=== PATIENT | male | born 1950 | race Caucasian/White ===

== ENCOUNTER → 2018-07-01 10:06 | Outpatient (CLI) | payer MEDICARE, SELFPAY ==
[2018-07-01 10:57] LABS: Add Manual Diff / Slide Review NO; Basophils Percent Auto 0.9 % (0-2); Eosinophils Percent Auto 2.7 % (2-4); Hematocrit 48.9 % (41-53); Hemoglobin 16.6 g/dL (13.5-17.5); Lymphocytes Percent Auto 34.6 % (25-40); Mean Corpuscular Volume 94.3 fL (80-100); Monocytes Percent Auto 11.7 % (3-14); Neutrophils Absolute Auto 2700 /uL (3000-5900); Neutrophils Percent Auto 50.1 % (50-75); Platelet Count 232 X10^3/uL (150-400); Red Blood Cell Count 5.19 X10^6/uL (4.5-5.9); White Blood Cell Count 5.3 X10^3/uL (4.5-11.0)
[2018-07-01 11:15] LABS: Alanine Aminotransferase 38 IU/L (21-72); Albumin 4.5 g/dL (3.5-5.0); Albumin Globulin Ratio 1.5 (1.0-2.8); Alkaline Phosphatase 62 U/L (38-126); Aspartate Aminotransferase 26 IU/L (17-59); Bilirubin Total 0.7 mg/dL (0.2-1.3); Blood Urea Nitrogen 20 mg/dL (9-20); Calcium 9.1 mg/dL (8.4-10.2); Carbon Dioxide 25 mmol/L (22-32); Chloride 103 mmol/L (98-107); Cholesterol 218 mg/dL (140-199); Estimated Glomerular Filt Rate > 60.0 mL/min (>60); Globulin 3.1 g/dL (1.7-4.1); Glucose 116 mg/dL (80-110); HDL Cholesterol 35 mg/dL (40-60); HEMOLYSIS < 15 (0-50); LDL Cholesterol Calculated 146 mg/dL (<100); Potassium 4.3 mmol/L (3.4-5.1); Sodium 140 mmol/L (137-145); Total Protein 7.6 g/dL (6.3-8.2); Triglycerides 184 mg/dL (35-150)
[2018-07-01 11:44] LABS: Prostate Specific Antigen Scrn 0.356 ng/mL (0.1-4.0)
[2018-07-01 11:45] LABS: Thyroid Stimulating Hormone 4.37 uIU/mL (0.47-4.68)
[2018-07-04 13:33] LABS: Testosterone Free 54.7 pg/mL (35.0-155.0); Testosterone Total 279 ng/dL (250-1100)
== END ==
PROVIDERS: PCP Family Medicine; Visit Provider Family Medicine
DX: E78.2 Mixed hyperlipidemia (principal); I10 Essential (primary) hypertension; I25.10 Atherosclerotic heart disease of native coronary artery without angina pectoris; Z12.5 Encounter for screening for malignant neoplasm of prostate; R53.83 Other fatigue
CPT/HCPCS: 36415; 80053; 80061; 84402; 84403; 84443; 85025; G0103

== ENCOUNTER → 2018-08-21 18:33 | Outpatient (CLI) | payer MEDICARE, OTHER, SELFPAY ==
--- NOTE | 2018-08-21 18:37 | DI.RAD.S_ITS ---
PROCEDURE: XR CHEST 2V INDICATIONS: cough and fatigue TECHNIQUE: 2 views of the chest were acquired. COMPARISON: [facility], , CHEST 1 VIEW, 09/07/2012, 20:19. FINDINGS: Surgical changes and devices: Median sternotomy wires and surgical clips are seen. Lungs and pleura: No pleural effusions or pneumothorax. Pulmonary vascular congestion is seen. No definite focal infiltrate. Mediastinum: Mediastinal contours are normal. Heart size is normal. Bones and chest wall: No suspicious bony abnormalities. Soft tissues appear unremarkable. IMPRESSION: Mild congestion. No focal infiltrate, pleural effusion or pneumothorax. Dictated by: Tiago Larson M.D. on 08/21/2018 at 19:07 Approved by: Tiago Larson M.D. on 08/21/2018 at 19:07
== END ==
PROVIDERS: Family Provider Family Medicine; PCP Family Medicine; Visit Provider Physician Assistant
DX: R05 Cough (principal); R53.83 Other fatigue; R09.89 Other specified symptoms and signs involving the circulatory and respiratory systems
CPT/HCPCS: 71046

== ENCOUNTER → 2019-03-17 12:57 | Outpatient (CLI) | payer MEDICARE, SELFPAY ==
--- NOTE | 2019-03-17 13:00 | DI.ECHO.S_ITS ---
[facility] +---------+ : : [address] : : : : [id number] : : : : Phone: [phone]+ Echocardiogram Report + + :Name: REJI SOTO Study Date: 03/17/2019 Height: 70 in : :[facility] Exam Location: IS Weight: 210 lb : : Gender: Male BSA: 2.1 m2 : :: 1950 Age: 68 yrs BP: 120/85 mmHg: :Reason For Study: CABG : :Ordering Physician: Dr. Hernandez : :Jeremias Performed By: Zoë Page : + + Interpretation Summary Normal sinus rhythm. Normal LV size and wall thickness. There is mild global hypokinesis. EF is 45- 50%. There is mild LA enlargement and moderate RA enlargement; there is mild RV enlargement with low normal RV function. Aortic valve leaflets are mildly thickened and calcified with mild associated aortic stenosis. Compared to prior study 07/12/2015, progressive biatrial enlargement is new. Focal wall motion abnormalities are no longer seen. Procedure: A two-dimensional transthoracic echocardiogram with color flow and Doppler was performed. The study quality was technically adequate. Comparison is made with the echocardiogram of 07/12/2015. The patient was in normal sinus rhythm during the exam. Left Ventricle: The left ventricle is normal in size. Left ventricular wall thickness is normal. The ejection fraction is estimated to be 45-50%. Diastolic parameters suggest a relaxation abnormality of the left ventricle, consistent with probable normal filling pressures. E/A reversal with E/e' ratio of about 10. Right Ventricle: The right ventricle is mildly dilated. Right ventricular systolic function is at the lower limits of normal. Atria: The left atrium is mildly dilated. The right atrium is moderately dilated. There is no Doppler evidence for an interatrial shunt. Mitral Valve: The mitral valve leaflets are mildly calcified. There is trace mitral regurgitation. Aortic Valve: The aortic valve is trileaflet. The aortic valve is slightly calcified. There is discrete nodular thickening of the non- coronary cusp. There is trace aortic regurgitation. Tricuspid Valve: The tricuspid valve is normal in structure and function. There is trace tricuspid regurgitation. The right ventricular systolic pressure is estimated to be at least 26 mmHg based on an estimated right atrial pressure of 8 mm Hg. Pulmonic Valve: The pulmonic valve is not well visualized. There is trace pulmonic regurgitation. Great Vessels: The aortic root is normal size. The ascending aorta is mildly enlarged. The pulmonary artery is not well visualized, but is probably normal size. The IVC is dilated (diameter is greater than 2.1 cm) yet it collapses greater than 50% with a sniff. This suggests a right atrial pressure of 8 mm Hg. Pericardium/ Pleura There is no pericardial effusion. There is no pleural effusion. MMode/2D Measurements & Calculations LVIDd: 5.0 cm Ao root diam: 3.0 cm LVIDs: 3.9 cm asc Aorta Diam: 3.6 cm FS: 22.4 % EPSS: 0.68 cm IVSd: 0.82 cm LVPWd: 0.95 cm LV dockery. diameter/BSA (cm/m^2): 2.4 LV sys. diameter/BSA (cm/m^2): 1.8 LA A2 area: 22.9 cm2 RA long axis: 5.6 cm LA A4 area: 23.7 cm2 RA area: 26.6 cm2 LA length (vol): 6.2 cm RA vol: 108.7 ml LA vol: 73.7 ml RA : 51.0 ml/m2 LA vol index: 34.6 ml/m2 IVC diam: 2.3 cm RVD1 (basal): 5.2 cm TAPSE: 1.7 cm Doppler Measurements & Calculations Ao V2 max: 193.2 cm/sec LVOT Max Sacha: 69.3 cm/sec Ao V2 mean: 139.8 cm/sec LV V1 max P.9 mmHg Ao max P.9 mmHg LV V1 VTI: 15.0 cm Ao mean P.7 mmHg sev ratio: 0.37 Ao V2 VTI: 41.1 cm MV E max sacha: 66.3 cm/sec TR max sacha: 209.7 cm/sec MV A max sacha: 80.4 cm/sec TR max P.6 mmHg MV E/A: 0.82 PA V2 max: 69.7 cm/sec Med Peak E' Sacha: 8.2 cm/sec PA V2 mean: 48.7 cm/sec E/E' med: 8.1 PA mean P.1 mmHg Lat Peak E' Sacha: 6.3 cm/sec PA Accel Time: 0.04 sec E/E' lat: 10.5 E/e' average: 9.3 MV dec time: 0.20 sec MV P1/2t: 57.7 msec MV P1/2t max sacha: 65.8 cm/sec MVA(2t): 3.8 cm2 Electronically signed by: Stephanie Hernandez M.D. on Reading Physician:03/18/2019 01:26 AM
--- NOTE | 2019-03-17 13:00 | DI.US.S_ITS ---
PROCEDURE: US CAROTID DOPPLER BI INDICATIONS: HISTORY LEFT ENDARTERECTOMY TECHNIQUE: Color and pulse Doppler interrogation was performed of both carotid systems, with image documentation and velocity measurements. COMPARISON: None. FINDINGS: Stenosis calculations are based on SRU (Society of Radiologists in Ultrasound) criteria. The flow velocities and the arterial waveforms are normal within both carotid arterial systems. Atherosclerotic plaque is seen on both sides. The estimated degree of internal carotid artery stenosis is less than 50%. Antegrade flow is confirmed within both vertebral arteries. The left external carotid artery is not seen. The right external carotid artery is unremarkable. IMPRESSION: No hemodynamically significant stenosis is seen of the internal carotid arteries. The left external carotid artery is not seen on these images. Please correlate with surgical history. Please consider a dedicated CT angiogram, if evaluation of the left external carotid artery would be clinically relevant. Atherosclerotic plaque is noted bilaterally. Dictated by: Hood Huffman M.D. on 03/17/2019 at 14:50 Approved by: Hood Huffman M.D. on 03/17/2019 at 14:53
== END ==
PROVIDERS: Family Provider Family Medicine; PCP Family Medicine; Visit Provider Family Medicine
DX: I35.0 Nonrheumatic aortic (valve) stenosis (principal); I77.89 Other specified disorders of arteries and arterioles; I65.23 Occlusion and stenosis of bilateral carotid arteries; Z98.890 Other specified postprocedural states; Z95.1 Presence of aortocoronary bypass graft
CPT/HCPCS: 93306; 93880

== ENCOUNTER → 2019-10-11 10:43 | Outpatient (CLI) | payer MEDICARE, SELFPAY ==
[2019-10-11 11:09] LABS: Add Manual Diff / Slide Review NO; Basophils Absolute Auto 0 /uL (0-100); Basophils Percent Auto 0.8 % (0-2); Eosinophils Absolute Auto 100 /uL (0-450); Eosinophils Percent Auto 2.4 % (2-4); Hematocrit 47.5 % (41-53); Hemoglobin 16.3 g/dL (13.5-17.5); Lymphocytes Absolute Auto 1800 /uL (1100-4500); Lymphocytes Percent Auto 31.8 % (25-40); Mean Corpuscular HGB Conc 34.3 % (30-36); Mean Corpuscular Hemoglobin 31.9 PG (26-34); Mean Corpuscular Volume 93.2 fL (80-100); Monocytes Absolute Auto 700 /uL (0-900); Monocytes Percent Auto 11.4 % (3-14); Neutrophils Absolute Auto 3100 /uL (1500-7000); Neutrophils Percent Auto 53.6 % (50-75); Platelet Count 214 X10^3/uL (150-400); Red Cell Distribution Width 13.1 % (11.6-14.8); White Blood Cell Count 5.7 X10^3/uL (4.5-11.0)
[2019-10-11 11:37] LABS: HEMOLYSIS < 15 (0-50)
[2019-10-11 11:39] LABS: Erythrocyte Sedimentation Rate 2 MM/HR (0-15)
[2019-10-11 11:44] LABS: Alanine Aminotransferase 17 IU/L (<50); Albumin 4.3 g/dL (3.5-5.0); Albumin Globulin Ratio 1.3 (1.0-2.8); Alkaline Phosphatase 57 U/L (38-126); Aspartate Aminotransferase 18 IU/L (17-59); Bilirubin Total 0.6 mg/dL (0.2-1.3); Blood Urea Nitrogen 22 mg/dL (9-20); Calcium 9.8 mg/dL (8.4-10.2); Carbon Dioxide 25 mmol/L (22-32); Chloride 103 mmol/L (98-107); Cholesterol 148 mg/dL (140-199); Estimated Glomerular Filt Rate > 60.0 mL/min (>60); Globulin 3.3 g/dL (1.7-4.1); Glucose 125 mg/dL (80-110); HDL Cholesterol 30 mg/dL (40-60); LDL Cholesterol Calculated 97 mg/dL (<100); Potassium 4.8 mmol/L (3.4-5.1); Sodium 139 mmol/L (137-145); Total Protein 7.6 g/dL (6.3-8.2); Triglycerides 107 mg/dL (35-150)
[2019-10-11 11:49] LABS: C-Reactive Protein Quant < 0.5 mg/dL (<1.0)
[2019-10-11 12:10] LABS: Prostate Specific Antigen Scrn 0.371 ng/mL (0.1-4.0)
[2019-10-11 13:34] LABS: Testosterone 351 ng/dL (71.8-623)
== END ==
PROVIDERS: Family Provider Family Medicine; Referring Provider Family Medicine; Visit Provider Family Medicine
DX: R25.1 Tremor, unspecified (principal); R53.83 Other fatigue; Z12.5 Encounter for screening for malignant neoplasm of prostate; E78.2 Mixed hyperlipidemia
CPT/HCPCS: 36415; 80053; 80061; 83735; 84153; 84403; 85025; 85651; 86140; G0103

== ENCOUNTER → 2019-10-15 09:44 | Outpatient (CLI) | payer MEDICARE, SELFPAY ==
--- NOTE | 2019-10-15 09:47 | DI.MRI.S_ITS ---
PROCEDURE: MR HEAD/BRAIN WO CON INDICATIONS: Memory impairment TECHNIQUE: Noncontrast axial T1 spin echo, axial T2 fast spin echo, sagittal and axial FLAIR, coronal T2 fast spin echo, axial gradient echo, axial diffusion and ADC through the brain. COMPARISON: None. FINDINGS: Image quality: Excellent. CSF Spaces: Basal cisterns are patent. No extra-axial fluid collections. Ventricles are normal in size and shape. Brain: No intracranial masses or hemorrhage. Jimenez/white matter interface is normal. Brainstem appears normal. Diffusion-weighted images demonstrate no acute ischemic insult. No chronic ischemic insults. Normal intravascular flow voids are present. Skull and face: Calvarium has normal marrow signal. Orbits appear normal. Sinuses: Sinuses and mastoids are clear. IMPRESSION: 1. Negative brain MRI. 2. No acute process. No recent infarct. Dictated by: Bettye Ugarte M.D. on 10/15/2019 at 10:05 Approved by: Bettye Ugarte M.D. on 10/15/2019 at 10:07
--- NOTE | 2019-10-15 09:47 | DI.RAD.S_ITS ---
PROCEDURE: XR KNEE LT 3V INDICATIONS: Knee pain TECHNIQUE: 3 views of the knee were acquired. COMPARISON: [facility], , KNEE 3V LEFT, 10/24/2016, 14:32. FINDINGS: Bones: No fractures or dislocations. No suspicious bony lesions. Mild medial joint space narrowing. Scattered degenerative subchondral sclerosis and spurring. Nonspecific marginal lucencies seen at the lateral aspect of the lateral compartment which are slightly more conspicuous. Soft tissues: No joint effusion. No suspicious soft tissue calcifications. Scattered vascular calcifications IMPRESSION: Mild left knee joint degeneration, without definite progression since 10/24/16 Dictated by: Gabino Valdovinos M.D. on 10/15/2019 at 13:40 Approved by: Gabino Valdovinos M.D. on 10/15/2019 at 13:44
--- NOTE | 2019-10-15 09:47 | DI.RAD.S_ITS ---
PROCEDURE: XR KNEE RT 3V INDICATIONS: Knee pain TECHNIQUE: 3 views of the knee were acquired. COMPARISON: [facility], , KNEE 3V LEFT, 10/24/2016, 14:32. FINDINGS: Bones: No fractures or dislocations. No suspicious bony lesions. Scattered degenerative subchondral sclerosis and spurring. Mild patellofemoral joint space narrowing Soft tissues: No joint effusion. No suspicious soft tissue calcifications. Scattered surgical clips and vascular calcifications. Mild anterior soft tissue swelling IMPRESSION: Mild right knee joint degeneration. Mild anterior soft tissue swelling. If the patient's pain or other symptoms persist, consider further evaluation with MRI Dictated by: Gabino Valdovinos M.D. on 10/15/2019 at 13:44 Approved by: Gabino Valdovinos M.D. on 10/15/2019 at 13:46
== END ==
PROVIDERS: Family Provider Family Medicine; PCP Family Medicine; Referring Provider Family Medicine; Visit Provider Family Medicine
DX: R41.3 Other amnesia (principal); M25.562 Pain in left knee; M25.561 Pain in right knee; M17.0 Bilateral primary osteoarthritis of knee
CPT/HCPCS: 70551; 73562

== ENCOUNTER → 2020-06-20 11:24 | Outpatient (CLI) | payer MEDICARE, SELFPAY ==
[2020-06-20 12:45] LABS: Add Manual Diff / Slide Review NO; Basophils Absolute Auto 0 /uL (0-100); Basophils Percent Auto 0.7 % (0-2); Eosinophils Absolute Auto 200 /uL (0-450); Eosinophils Percent Auto 3.3 % (2-4); Hematocrit 47.7 % (41-53); Lymphocytes Absolute Auto 1900 /uL (1100-4500); Lymphocytes Percent Auto 29.9 % (25-40); Mean Corpuscular HGB Conc 33.6 % (30-36); Mean Corpuscular Hemoglobin 31.9 PG (26-34); Mean Corpuscular Volume 94.8 fL (80-100); Monocytes Absolute Auto 700 /uL (0-900); Monocytes Percent Auto 11.1 % (3-14); Neutrophils Absolute Auto 3500 /uL (1500-7000); Platelet Count 200 X10^3/uL (150-400); Red Blood Cell Count 5.03 X10^6/uL (4.5-5.9); Red Cell Distribution Width 13.2 % (11.6-14.8); White Blood Cell Count 6.4 X10^3/uL (4.5-11.0)
[2020-06-20 13:06] LABS: BUN Creatinine Ratio 21.8 (6-22); Blood Urea Nitrogen 24 mg/dL (9-20); Calcium 9.5 mg/dL (8.4-10.2); Carbon Dioxide 27 mmol/L (22-32); Chloride 103 mmol/L (98-107); Cholesterol 162 mg/dL (140-199); Estimated Glomerular Filt Rate > 60.0 mL/min (>60); Glucose 115 mg/dL (80-110); HDL Cholesterol 27 mg/dL (40-60); HEMOLYSIS < 15 (0-50); LDL Cholesterol Calculated 91 mg/dL (<100); Potassium 4.7 mmol/L (3.4-5.1); Sodium 137 mmol/L (137-145); Triglycerides 218 mg/dL (35-150)
== END ==
PROVIDERS: Family Provider Family Medicine; PCP Family Medicine; Referring Provider Family Medicine; Visit Provider Family Medicine
DX: E78.2 Mixed hyperlipidemia (principal); I10 Essential (primary) hypertension; I25.10 Atherosclerotic heart disease of native coronary artery without angina pectoris; R53.83 Other fatigue; Z95.1 Presence of aortocoronary bypass graft; Z98.890 Other specified postprocedural states
CPT/HCPCS: 36415; 80048; 80061; 85025

== ENCOUNTER 2021-07-24 11:00 | Outpatient (RCR) | payer MEDICARE, SELFPAY ==
[2021-06-21 14:26] VITALS: BP 140/86; O2SAT 94; O2SAT 95
--- NOTE | 2021-06-21 16:31 | PT.OIE ---
Current Diagnoses Parkinson's disease (06/21/21) Other abnormalities of gait and mobility (06/21/21) Past Medical History (Last Updated 07/16/18 @ 12:06 by Rita Blackman) CAD (coronary artery disease) (2008) History of bilateral carpal tunnel release History of cardiac catheterization (01/26/09) History of colonoscopy (02/19/11) History of left-sided carotid endarterectomy (08/18/15) FL (myocardial infarction) (2008) Retinal artery occlusion, 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) S/P CABG (coronary artery bypass graft) (01/2009) Past Surgical History (Last Updated 07/16/18 @ 12:06 by Rita Blackman) History of bilateral carpal tunnel release History of cardiac catheterization (01/26/09) History of colonoscopy (02/19/11) History of left-sided carotid endarterectomy (08/18/15) S/P CABG (coronary artery bypass graft) (01/2009) Visit Care Team Role Provider Type Domenic Patterson MD Primary Care Provider Physician Specialty: Family Practice Address: [address] [place] [address], [facility] Email: [email or web address] Velvet Smiley MD Attending Provider Non-Staff Referring Provider Specialty: Neurology Address: [address] [place] [address], [facility] Email: Physical Therapy Initial Evaluation PT-OP-A Visit Information Start: 06/21/21 07:47 Freq: Status: Active Protocol: Document 06/21/21 11:00 AMB (Rec: 06/21/21 14:26 AMB [email or web address]) Out-Patient Physical Therapy Visit Information Visit Information Visit Type Initial Evaluation Visit Start Time 11:00 Visit Stop Time 12:00 Total Visit Minutes 60 Visit Number 1 PT-OP-B Current Condition Start: 06/21/21 07:47 Freq: Status: Active Protocol: Document 06/21/21 11:00 AMB (Rec: 06/21/21 14:26 AMB [email or web address]) Current Condition History of Current Condition Onset Date 3 years ago Current Complaints L tremor History of Current Condition Allyson noticed a feeling of a tremor starting in his left hand 3 years ago. Recently he has been diagnosed with Parkinson's. 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 He is anxious about his future with PD, but denies any difficulty with his ADLs currently denies falls, he does not really exercise, he goes on walks sometimes. He does have some chronic low back pain but denies that it affects him much. Personal Factors Other Personal Factors That May Effect FL, blood clot to L macula, hx Therapy/Recovery cardiac bypass, hypertension. PT-OP-D Balance Start: 06/21/21 07:47 Freq: Status: Active Protocol: Document 06/21/21 14:26 AMB (Rec: 06/21/21 14:32 AMB [email or web address]) OP-PT Balance Assessment Standing Balance Standing Balance Comments single leg stance 10 seconds + Pickering Fall Scale Copyright Permission PT-OP-E Functional Tests Start: 06/21/21 07:47 Freq: Status: Active Protocol: Document 06/21/21 14:26 AMB (Rec: 06/21/21 14:32 AMB [email or web address]) Functional Tests 6 Minute Walk Test Distance 1384 Device Used none PT-OP-G Mobility & Gait Start: 06/21/21 07:47 Freq: Status: Active Protocol: Document 06/21/21 14:26 AMB (Rec: 06/21/21 14:32 AMB [email or web address]) OP Gait Assessment Comments Gait Comments Reduced arm swing on the left especially with extension. PT-OP-H Neuro Start: 06/21/21 07:47 Freq: Status: Active Protocol: Document 06/21/21 14:26 AMB (Rec: 06/21/21 14:32 AMB [email or web address]) Vital Signs Blood Pressure Sitting Blood Pressure (90/60-120/80 mmHg) 140/86 H Blood Pressure Source Manual Cuff,Right Upper Extremity Oxygen Pulse Oximetry at Rest (%) (95-100 %) 94 L Pulse Oximetry with Activity (%) (95-100 95 %) Oxygen Delivery Method Room Air PT-OP-M Strength Start: 06/21/21 07:47 Freq: Status: Active Protocol: Document 06/21/21 14:26 AMB (Rec: 06/21/21 14:32 AMB [email or web address]) Hand Technical Sales Manager/Pinch Strength Hand Dominance Hand Dominance Right Hip Strength Hip Manual Muscle Testing Left Comments Grossly 5/5 in hip flex, knee flex/ext and ankle df. Good pinch and oracle engineer strength bilaterally. PT-OP-T Assessment and Plan Start: 06/21/21 16:12 Freq: Status: Active Protocol: Document 06/21/21 11:00 AMB (Rec: 06/21/21 16:31 AMB [email or web address]) Physical Therapy Assessment Rehab Potential Rehabilitation Potential Good Evaluation Complexity Number of Personal Factors/Comorbidities 1-2 Number of Body Systems Impaired 1-2 Clinical Presentation at Evaluation Stable Impairments Impairments Functional Activities,Gait Goals Two Impairment Exercise program Short Term Goal (STG) Allyson will be independent with the standard LSVT BIG exercise program. STG Duration 2 weeks Truck Trailer Mechanic Goal (LTG) Allyson will be independent and consistent with a community based exercise program. LTG Duration 4 weeks One Impairment Gait Short Term Goal (STG) Allyson will improve his 6MWT to over 1,500ft to show appropriate gait speed for his age/gender. STG Duration 2 weeks Longterm Goal (LTG) Allyson will ambulate with good bilateral arm swing when walking quickly. LTG Duration 4 weeks Assessment Summary Assessment Allyson attends physical therapy with recent Parkinson's diagnosis with L resting tremor and reduced heel strike and arm swing on the left. He does have a significant cardiac history. He has difficulty noticing any functional activities that have been impaired by Parkinson's but he does feel weaker and stiffer than he was when he was younger. He lives alone and may need help to identify how Parkinson's is affecting his mobility. Physical Therapy Plan Frequency and Duration Frequency of Treatment 4x/Week Plan of Care Start Date 06/21/21 Plan of Care End Date 07/26/21 Therapeutic Interventions Therapeutic Interventions Balance Training,Coordination Training,Gait Training,Home Exercise Program,Manual Therapy,Neuromuscular Re- education,Therapeutic Activities,Therapeutic Exercises Next Visit Focus/Plan Next Note Type Treatment Note Next Visit Plan begin Standard LSVT Big exercises
--- NOTE | 2021-06-21 16:33 | PT.OPPOC ---
Physical, Occupational & Speech Therapy At [facility] Current Diagnoses Parkinson's disease (06/21/21) Other abnormalities of gait and mobility (06/21/21) Visit Care Team Role Provider Type Domenic Patterson MD Primary Care Provider Physician Specialty: Family Practice Address: [address] [place] [address], [id number] Email: [email or web address] Velvet Smiley MD Attending Provider Non-Staff Referring Provider Specialty: Neurology Address: [address] [place] [address], [id number] Email: Plan Of Care PT-OP-T Assessment and Plan Start: 06/21/21 16:12 Freq: Status: Active Protocol: Document 06/21/21 11:00 AMB (Rec: 06/21/21 16:31 AMB [email or web address]) Physical Therapy Assessment Rehab Potential Rehabilitation Potential Good Evaluation Complexity Number of Personal Factors/Comorbidities 1-2 Number of Body Systems Impaired 1-2 Clinical Presentation at Evaluation Stable Impairments Impairments Functional Activities,Gait Goals Two Impairment Exercise program Short Term Goal (STG) Allyson will be independent with the standard LSIA BIG exercise program. STG Duration 2 weeks Photographic Press Screwmaker Goal (LTG) Allyson will be independent and consistent with a community based exercise program. LTG Duration 4 weeks One Impairment Gait Short Term Goal (STG) Allyson will improve his 6MWT to over 1,500ft to show appropriate gait speed for his age/gender. STG Duration 2 weeks Photographic Press Screwmaker Goal (LTG) Allyson will ambulate with good bilateral arm swing when walking quickly. LTG Duration 4 weeks Assessment Summary Assessment Allyson attends physical therapy with recent Parkinson's diagnosis with L resting tremor and reduced heel strike and armswing on the left. He does have a significant cardiac history. He has difficulty noticing any functional activities that have been impaired by Parkinson's but he does feel weaker and stiffer than he was when he was younger. He lives alone and may need help to identify how Parkinson's is affecting his mobility. Physical Therapy Plan Frequency and Duration Frequency of Treatment 4x/Week Plan of Care Start Date 06/21/21 Plan of Care End Date 07/26/21 Therapeutic Interventions Therapeutic Interventions Balance Training,Coordination Training,Gait Training,Home Exercise Program,Manual Therapy,Neuromuscular Re- education,Therapeutic Activities,Therapeutic Exercises Next Visit Focus/Plan Next Note Type Treatment Note Next Visit Plan begin Standard LSVT Big exercises Plan of Care Dates Plan of Care Start Date 06/21/21 Plan of Care End Date 07/26/21 Electronically Signed by: Daniela Leal, PT 06/21/21 3102 Please Sign and Return: I have reviewed this Plan of Care and certify that the skilled therapy services above are required to meet the patient?s needs. Physician Signature Date Printed Name and Credentials Clinical Instructor Signature Printed Name and Credentials
--- NOTE | 2021-06-25 12:16 | PT.OTN ---
Current Diagnoses Parkinson's disease (06/25/21) Other abnormalities of gait and mobility (06/25/21) Physical Therapy Treatment Note PT-OP-A Visit Information Start: 06/21/21 07:47 Freq: Status: Active Protocol: Document 06/25/21 11:58 MA (Rec: 06/25/21 12:16 MA [email or web address]) Out-Patient Physical Therapy Visit Information Visit Information Visit Type Treatment Note Visit Start Time 11:00 Visit Stop Time 11:55 Total Visit Minutes 55 Visit Number 2 Number of FUR BUYER Visits 1 PT-OP-B Current Condition Start: 06/21/21 07:47 Freq: Status: Active Protocol: Document 06/21/21 11:00 AMB (Rec: 06/21/21 14:26 AMB [email or web address]) Current Condition History of Current Condition Onset Date 3 years ago Current Complaints L tremor History of Current Condition Allyson noticed a feeling of a tremor starting in his left hand 3 years ago. Recently he has been diagnosed with Parkinson's. 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 He is anxious about his future with PD, but denies any difficulty with his ADLs currently denies falls, he does not really exercise, he goes on walks sometimes. He does have some chronic low back pain but denies that it affects him much. Personal Factors Other Personal Factors That May Effect SD, blood clot to L macula, hx Therapy/Recovery cardiac bypass, hypertension. PT-OP-C Subjective Start: 06/21/21 07:47 Freq: Status: Active Protocol: Document 06/25/21 11:58 MA (Rec: 06/25/21 12:16 MA [email or web address]) OP-PT Subjective Patient Comments Patient Comments Pt reports taking medication 3x/daily for PD and has L tremor. He states he was recently diagnosed and has no major functional deficits aside from the tremor, but he is R handed so the tremor doesn't affect much. PT-OP-D Balance Start: 06/21/21 07:47 Freq: Status: Active Protocol: Document 06/21/21 14:26 AMB (Rec: 06/21/21 14:32 AMB [email or web address]) OP-PT Balance Assessment Standing Balance Standing Balance Comments single leg stance 10 seconds + Pickering Fall Scale Copyright Permission PT-OP-E Functional Tests Start: 06/21/21 07:47 Freq: Status: Active Protocol: Document 06/21/21 14:26 AMB (Rec: 06/21/21 14:32 AMB [email or web address]) Functional Tests 6 Minute Walk Test Distance 1384 Device Used none PT-OP-G Mobility & Gait Start: 06/21/21 07:47 Freq: Status: Active Protocol: Document 06/21/21 14:26 AMB (Rec: 06/21/21 14:32 AMB [email or web address]) OP Gait Assessment Comments Gait Comments Reduced arm swing on the left especially with extension. PT-OP-H Neuro Start: 06/21/21 07:47 Freq: Status: Active Protocol: Document 06/21/21 14:26 AMB (Rec: 06/21/21 14:32 AMB [email or web address]) Vital Signs Blood Pressure Sitting Blood Pressure (90/60-120/80 mmHg) 140/86 H Blood Pressure Source Manual Cuff,Right Upper Extremity Oxygen Pulse Oximetry at Rest (%) (95-100 %) 94 L Pulse Oximetry with Activity (%) (95-100 95 %) Oxygen Delivery Method Room Air PT-OP-M Strength Start: 06/21/21 07:47 Freq: Status: Active Protocol: Document 06/21/21 14:26 AMB (Rec: 06/21/21 14:32 AMB [email or web address]) Hand Health Education Aide/Pinch Strength Hand Dominance Hand Dominance Right Hip Strength Hip Manual Muscle Testing Left Comments Grossly 5/5 in hip flex, knee flex/ext and ankle df. Good pinch and powder carrier strength bilaterally. PT-OP-Q Treatments Start: 06/21/21 07:47 Freq: Status: Active Protocol: Document 06/25/21 11:58 MA (Rec: 06/25/21 12:13 MA [email or web address]) Gait Training Gait Activity Walking Description uneven terrain- grass, curbs, stairs Surface uneven Distance/Duration 8' Treatment Focus BIG arm swings Comments seated rest break for 2' fpc Neuro Re-Education Treatment Other Activities Sit<>Stand Details no UEs Reps/Duration 10x Sideways Rock & Reach Reps/Duration 10x Fwd Rock & Reach Reps/Duration 10x Backward Step & Reach Reps/Duration 10x Sideways Step & reach Reps/Duration 10x Fwd Step & Reach Reps/Duration 10x Side to Side Details added flicks Reps/Duration 10x Floor to Ceiling Details added flicks Reps/Duration 10x Comments modified to keeping head looking at horizon when reaching down d/t dizziness Self-Care/Home Management Treatment Education Other Education Discussed BIG program, PD progression, vocalizing during exercises, working on adding walking into pt's daily schedule PT-OP-T Assessment and Plan Start: 06/21/21 16:12 Freq: Status: Active Protocol: Document 06/25/21 11:58 MA (Rec: 06/25/21 12:13 MA [email or web address]) Physical Therapy Assessment Goals Two Impairment Exercise program Short Term Goal (STG) Allyson will be independent with the standard LSVT BIG exercise program. STG Duration 2 weeks Medical Imaging Technologist Goal (LTG) Allyson will be independent and consistent with a community based exercise program. LTG Duration 4 weeks One Impairment Gait Short Term Goal (STG) Allyson will improve his 6MWT to over 1,500ft to show appropriate gait speed for his age/gender. STG Duration 2 weeks Medical Imaging Technologist Goal (LTG) Allyson will ambulate with good bilateral arm swing when walking quickly. LTG Duration 4 weeks Assessment Summary Assessment Allyson states he feels exercises today were more difficult on his L side d/t tremor. He has minor dizziness during first BIG exercise when reaching to the floor. Dizziness subsides when PT asks pt to keep his eyes on horizon vs looking down and back up quickly during movement. He has no other c/o dizziness throughout session but fatigues easily, requiring multiple seated and standing rest breaks. PT educated pt on BIG program, what to expect, progression of PD, and dispensed exercise packet. Pt understands he is to do try the exercises once at home this afternoon and report back tomorrow how it went. Physical Therapy Plan Frequency and Duration Frequency of Treatment 4x/Week Plan of Care Start Date 06/21/21 Plan of Care End Date 07/26/21 Therapeutic Interventions Therapeutic Interventions Balance Training,Coordination Training,Gait Training,Home Exercise Program,Manual Therapy,Neuromuscular Re- education,Therapeutic Activities,Therapeutic Exercises Next Visit Focus/Plan Next Note Type Treatment Note Next Visit Plan Continue Standard LSVT Big exercises, begin balance work and continue gait with increased emphasis on heel strike and arm swings
--- NOTE | 2021-06-26 12:12 | PT.OTN ---
Current Diagnoses Parkinson's disease (06/26/21) Other abnormalities of gait and mobility (06/26/21) Physical Therapy Treatment Note PT-OP-A Visit Information Start: 06/21/21 07:47 Freq: Status: Active Protocol: Document 06/26/21 11:00 AMB (Rec: 06/26/21 12:11 AMB [email or web address]) Out-Patient Physical Therapy Visit Information Visit Information Visit Type Treatment Note Visit Start Time 11:00 Visit Stop Time 11:55 Total Visit Minutes 55 Visit Number 3 PT-OP-B Current Condition Start: 06/21/21 07:47 Freq: Status: Active Protocol: Document 06/21/21 11:00 AMB (Rec: 06/21/21 14:26 AMB [email or web address]) Current Condition History of Current Condition Onset Date 3 years ago Current Complaints L tremor History of Current Condition Allyson noticed a feeling of a tremor starting in his left hand 3 years ago. Recently he has been diagnosed with Parkinson's. 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 He is anxious about his future with PD, but denies any difficulty with his ADLs currently denies falls, he does not really exercise, he goes on walks sometimes. He does have some chronic low back pain but denies that it affects him much. Personal Factors Other Personal Factors That May Effect [place], blood clot to L macula, hx Therapy/Recovery cardiac bypass, hypertension. PT-OP-C Subjective Start: 06/21/21 07:47 Freq: Status: Active Protocol: Document 06/26/21 11:00 AMB (Rec: 06/26/21 12:11 AMB [email or web address]) OP-PT Subjective Patient Comments Patient Comments Pt reports he did some stretching last night but did not do his exercises. PT-OP-D Balance Start: 06/21/21 07:47 Freq: Status: Active Protocol: Document 06/21/21 14:26 AMB (Rec: 06/21/21 14:32 AMB [email or web address]) OP-PT Balance Assessment Standing Balance Standing Balance Comments single leg stance 10 seconds + Pickering Fall Scale Copyright Permission PT-OP-E Functional Tests Start: 06/21/21 07:47 Freq: Status: Active Protocol: Document 06/21/21 14:26 AMB (Rec: 06/21/21 14:32 AMB [email or web address]) Functional Tests 6 Minute Walk Test Distance 1384 Device Used none PT-OP-G Mobility & Gait Start: 06/21/21 07:47 Freq: Status: Active Protocol: Document 06/21/21 14:26 AMB (Rec: 06/21/21 14:32 AMB [email or web address]) OP Gait Assessment Comments Gait Comments Reduced arm swing on the left especially with extension. PT-OP-H Neuro Start: 06/21/21 07:47 Freq: Status: Active Protocol: Document 06/21/21 14:26 AMB (Rec: 06/21/21 14:32 AMB [email or web address]) Vital Signs Blood Pressure Sitting Blood Pressure (90/60-120/80 mmHg) 140/86 H Blood Pressure Source Manual Cuff,Right Upper Extremity Oxygen Pulse Oximetry at Rest (%) (95-100 %) 94 L Pulse Oximetry with Activity (%) (95-100 95 %) Oxygen Delivery Method Room Air PT-OP-M Strength Start: 06/21/21 07:47 Freq: Status: Active Protocol: Document 06/21/21 14:26 AMB (Rec: 06/21/21 14:32 AMB [email or web address]) Hand Solar/Renewable Energy Sales/Pinch Strength Hand Dominance Hand Dominance Right Hip Strength Hip Manual Muscle Testing Left Comments Grossly 5/5 in hip flex, knee flex/ext and ankle df. Good pinch and buggy operator strength bilaterally. PT-OP-Q Treatments Start: 06/21/21 07:47 Freq: Status: Active Protocol: Document 06/26/21 11:00 AMB (Rec: 06/26/21 12:11 AMB [email or web address]) Gait Training Gait Activity Walking Description uneven terrain- grass, curbs, stairs Surface uneven Distance/Duration 6' Treatment Focus BIG arm swings Comments seated rest break for 2' correction Neuro Re-Education Treatment Other Activities Sit<>Stand Details no UEs Reps/Duration 10x Comments cues forward lean Sideways Rock & Reach Reps/Duration 10x Fwd Rock & Reach Reps/Duration 10x Backward Step & Reach Reps/Duration 10x Comments heavy cues Sideways Step & reach Reps/Duration 10x Fwd Step & Reach Reps/Duration 10x Side to Side Details added flicks Reps/Duration 10x Floor to Ceiling Details added flicks Reps/Duration 10x Comments modified to keeping head looking at horizon when reaching down d/t dizziness PT-OP-T Assessment and Plan Start: 06/21/21 16:12 Freq: Status: Active Protocol: Document 06/26/21 11:00 AMB (Rec: 06/26/21 12:11 AMB [email or web address]) Physical Therapy Assessment Goals Two Impairment Exercise program Short Term Goal (STG) Allyson will be independent with the standard LSVT BIG exercise program. STG Duration 2 weeks Long-Term Goal (LTG) Allyson will be independent and consistent with a community based exercise program. LTG Duration 4 weeks One Impairment Gait Short Term Goal (STG) Allyson will improve his 6MWT to over 1,500ft to show appropriate gait speed for his age/gender. STG Duration 2 weeks Long-Term Goal (LTG) Allyson will ambulate with good bilateral arm swing when walking quickly. LTG Duration 4 weeks Assessment Summary Assessment No dizziness today, but pt does report hx orthostatic hypotension. Needed continued cues for backwards stepping. Fatigues and needed seated rest breaks. Physical Therapy Plan Next Visit Focus/Plan Next Note Type Treatment Note Next Visit Plan Continue Standard LSVT Big exercises, begin balance work and continue gait with increased emphasis on heel strike and arm swings
--- NOTE | 2021-06-27 12:01 | PT.OTN ---
Current Diagnoses Parkinson's disease (06/27/21) Other abnormalities of gait and mobility (06/27/21) Physical Therapy Treatment Note PT-OP-A Visit Information Start: 06/21/21 07:47 Freq: Status: Active Protocol: Document 06/27/21 10:50 MA (Rec: 06/27/21 12:01 MA [id number]) Out-Patient Physical Therapy Visit Information Visit Information Visit Type Treatment Note Visit Start Time 11:00 Visit Stop Time 11:55 Total Visit Minutes 55 Visit Number 4 Number of BUTTONHOLE MAKER HAND Visits 1 PT-OP-B Current Condition Start: 06/21/21 07:47 Freq: Status: Active Protocol: Document 06/21/21 11:00 AMB (Rec: 06/21/21 14:26 AMB [email or web address]) Current Condition History of Current Condition Onset Date 3 years ago Current Complaints L tremor History of Current Condition Allyson noticed a feeling of a tremor starting in his left hand 3 years ago. Recently he has been diagnosed with Parkinson's. 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 He is anxious about his future with PD, but denies any difficulty with his ADLs currently denies falls, he does not really exercise, he goes on walks sometimes. He does have some chronic low back pain but denies that it affects him much. Personal Factors Other Personal Factors That May Effect [place], blood clot to L macula, hx Therapy/Recovery cardiac bypass, hypertension. PT-OP-C Subjective Start: 06/21/21 07:47 Freq: Status: Active Protocol: Document 06/27/21 10:50 MA (Rec: 06/27/21 12:01 MA [id number]) OP-PT Subjective Patient Comments Patient Comments Pt reports I had a completely full afternoon yesterday and did not do my exercises and I don't even feel bad about it PT-OP-D Balance Start: 06/21/21 07:47 Freq: Status: Active Protocol: Document 06/21/21 14:26 AMB (Rec: 06/21/21 14:32 AMB [email or web address]) OP-PT Balance Assessment Standing Balance Standing Balance Comments single leg stance 10 seconds + Pickering Fall Scale Copyright Permission PT-OP-E Functional Tests Start: 06/21/21 07:47 Freq: Status: Active Protocol: Document 06/21/21 14:26 AMB (Rec: 06/21/21 14:32 AMB [email or web address]) Functional Tests 6 Minute Walk Test Distance 1384 Device Used none PT-OP-G Mobility & Gait Start: 06/21/21 07:47 Freq: Status: Active Protocol: Document 06/21/21 14:26 AMB (Rec: 06/21/21 14:32 AMB [email or web address]) OP Gait Assessment Comments Gait Comments Reduced arm swing on the left especially with extension. PT-OP-H Neuro Start: 06/21/21 07:47 Freq: Status: Active Protocol: Document 06/21/21 14:26 AMB (Rec: 06/21/21 14:32 AMB [email or web address]) Vital Signs Blood Pressure Sitting Blood Pressure (90/60-120/80 mmHg) 140/86 H Blood Pressure Source Manual Cuff,Right Upper Extremity Oxygen Pulse Oximetry at Rest (%) (95-100 %) 94 L Pulse Oximetry with Activity (%) (95-100 95 %) Oxygen Delivery Method Room Air PT-OP-M Strength Start: 06/21/21 07:47 Freq: Status: Active Protocol: Document 06/21/21 14:26 AMB (Rec: 06/21/21 14:32 AMB [email or web address]) Hand Step Down Nurse/Pinch Strength Hand Dominance Hand Dominance Right Hip Strength Hip Manual Muscle Testing Left Comments Grossly 5/5 in hip flex, knee flex/ext and ankle df. Good pinch and correctional supervisor strength bilaterally. PT-OP-Q Treatments Start: 06/21/21 07:47 Freq: Status: Active Protocol: Document 06/27/21 10:50 MA (Rec: 06/27/21 12:01 MA [id number]) Gym Equipment Shuttle Balance Red Clips Comments WBOS fwd and lateral throwing ball at rebounder- pt denies trying NBOS Gait Training Gait Activity Walking Description uneven terrain- grass, curbs, stairs Surface uneven Distance/Duration 6' Treatment Focus BIG arm swings Comments seated rest break at end today Tandem walking at end of session for 20 ft Neuro Re-Education Treatment Balance Activities SLS Comments 1. trials with EC 2. while throwing ball with PT Tandem Stance Comments 1. Eyes closed trials 2. while throwing ball with PT Other Activities Sit<>Stand Details no UEs Reps/Duration 10x Comments cues forward lean Sideways Rock & Reach Reps/Duration 10x Fwd Rock & Reach Reps/Duration 10x Backward Step & Reach Reps/Duration 10x Comments heavy cues Sideways Step & reach Reps/Duration 10x Fwd Step & Reach Reps/Duration 10x Side to Side Details added flicks Reps/Duration 10x Floor to Ceiling Details added flicks Reps/Duration 10x PT-OP-T Assessment and Plan Start: 06/21/21 16:12 Freq: Status: Active Protocol: Document 06/27/21 10:50 MA (Rec: 06/27/21 12:01 MA [id number]) Physical Therapy Assessment Goals Two Impairment Exercise program Short Term Goal (STG) Allyson will be independent with the standard LSVT BIG exercise program. STG Duration 2 weeks Halfway Goal (LTG) Allyson will be independent and consistent with a community based exercise program. LTG Duration 4 weeks One Impairment Gait Short Term Goal (STG) Allyson will improve his 6MWT to over 1,500ft to show appropriate gait speed for his age/gender. STG Duration 2 weeks Liquefied Natural Gas Operator Goal (LTG) Allyson will ambulate with good bilateral arm swing when walking quickly. LTG Duration 4 weeks Assessment Summary Assessment Pt continues to have difficulty with backwards stepping exercise. He does well with tandem balance work but struggles with SLS. Pt refuses to try NBOS balance challenges on shuttle balance and is challenged during WBOS while throwing ball at rebounder. Physical Therapy Plan Frequency and Duration Frequency of Treatment 4x/Week Plan of Care Start Date 06/21/21 Plan of Care End Date 07/26/21 Therapeutic Interventions Therapeutic Interventions Balance Training,Coordination Training,Gait Training,Home Exercise Program,Manual Therapy,Neuromuscular Re- education,Therapeutic Activities,Therapeutic Exercises Next Visit Focus/Plan Next Note Type Treatment Note Next Visit Plan Continue Standard LSVT Big exercises, begin balance work and continue gait with increased emphasis on heel strike and arm swings
--- NOTE | 2021-06-28 15:46 | PT.OTN ---
Current Diagnoses Parkinson's disease (06/28/21) Other abnormalities of gait and mobility (06/28/21) Physical Therapy Treatment Note PT-OP-A Visit Information Start: 06/21/21 07:47 Freq: Status: Active Protocol: Document 06/28/21 13:00 AMB (Rec: 06/28/21 13:54 AMB [id number]) Out-Patient Physical Therapy Visit Information Visit Information Visit Type Treatment Note Visit Start Time 13:00 Visit Stop Time 14:00 Total Visit Minutes 60 Visit Number 5 PT-OP-B Current Condition Start: 06/21/21 07:47 Freq: Status: Active Protocol: Document 06/21/21 11:00 AMB (Rec: 06/21/21 14:26 AMB [email or web address]) Current Condition History of Current Condition Onset Date 3 years ago Current Complaints L tremor History of Current Condition Allyson noticed a feeling of a tremor starting in his left hand 3 years ago. Recently he has been diagnosed with Parkinson's. 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 He is anxious about his future with PD, but denies any difficulty with his ADLs currently denies falls, he does not really exercise, he goes on walks sometimes. He does have some chronic low back pain but denies that it affects him much. Personal Factors Other Personal Factors That May Effect [place], blood clot to L macula, hx Therapy/Recovery cardiac bypass, hypertension. PT-OP-C Subjective Start: 06/21/21 07:47 Freq: Status: Active Protocol: Document 06/28/21 13:00 AMB (Rec: 06/28/21 15:46 AMB [email or web address]) OP-PT Subjective Patient Comments Patient Comments I have been busy with social stuff so haven't had time to do the exercises PT-OP-D Balance Start: 06/21/21 07:47 Freq: Status: Active Protocol: Document 06/21/21 14:26 AMB (Rec: 06/21/21 14:32 AMB [email or web address]) OP-PT Balance Assessment Standing Balance Standing Balance Comments single leg stance 10 seconds + Pickering Fall Scale Copyright Permission PT-OP-E Functional Tests Start: 06/21/21 07:47 Freq: Status: Active Protocol: Document 06/21/21 14:26 AMB (Rec: 06/21/21 14:32 AMB [email or web address]) Functional Tests 6 Minute Walk Test Distance 1384 Device Used none PT-OP-G Mobility & Gait Start: 06/21/21 07:47 Freq: Status: Active Protocol: Document 06/21/21 14:26 AMB (Rec: 06/21/21 14:32 AMB [email or web address]) OP Gait Assessment Comments Gait Comments Reduced arm swing on the left especially with extension. PT-OP-H Neuro Start: 06/21/21 07:47 Freq: Status: Active Protocol: Document 06/21/21 14:26 AMB (Rec: 06/21/21 14:32 AMB [email or web address]) Vital Signs Blood Pressure Sitting Blood Pressure (90/60-120/80 mmHg) 140/86 H Blood Pressure Source Manual Cuff,Right Upper Extremity Oxygen Pulse Oximetry at Rest (%) (95-100 %) 94 L Pulse Oximetry with Activity (%) (95-100 95 %) Oxygen Delivery Method Room Air PT-OP-M Strength Start: 06/21/21 07:47 Freq: Status: Active Protocol: Document 06/21/21 14:26 AMB (Rec: 06/21/21 14:32 AMB [email or web address]) Hand Supervisor Porcelain Department/Pinch Strength Hand Dominance Hand Dominance Right Hip Strength Hip Manual Muscle Testing Left Comments Grossly 5/5 in hip flex, knee flex/ext and ankle df. Good pinch and dry roller strength bilaterally. PT-OP-Q Treatments Start: 06/21/21 07:47 Freq: Status: Active Protocol: Document 06/28/21 13:00 AMB (Rec: 06/28/21 15:46 AMB [email or web address]) Gym Equipment Shuttle Balance Red Clips Comments WBOS lateral stance throw and catch to PT- states it hurts his feet, challenged by dual task Gait Training Gait Activity Walking Description uneven terrain- grass, curbs, stairs Surface uneven Distance/Duration 6' Treatment Focus BIG arm swings Comments up hill Neuro Re-Education Treatment Other Activities Sit<>Stand Details no UEs Reps/Duration 10x Comments cues forward lean- 16 box Sideways Rock & Reach Reps/Duration 10x Fwd Rock & Reach Reps/Duration 10x Backward Step & Reach Reps/Duration 10x Comments heavy cues Sideways Step & reach Reps/Duration 10x Comments alternating Fwd Step & Reach Reps/Duration 10x Comments alternating Side to Side Details added flicks Reps/Duration 10x Comments alternating sides Floor to Ceiling Details added flicks Reps/Duration 10x PT-OP-T Assessment and Plan Start: 06/21/21 16:12 Freq: Status: Active Protocol: Document 06/28/21 13:00 AMB (Rec: 06/28/21 15:46 AMB [email or web address]) Physical Therapy Assessment Goals Two Impairment Exercise program Short Term Goal (STG) Allyson will be independent with the standard LSVT BIG exercise program. STG Duration 2 weeks Retirement Goal (LTG) Allyson will be independent and consistent with a community based exercise program. LTG Duration 4 weeks One Impairment Gait Short Term Goal (STG) Allyson will improve his 6MWT to over 1,500ft to show appropriate gait speed for his age/gender. STG Duration 2 weeks Retirement Goal (LTG) Allyson will ambulate with good bilateral arm swing when walking quickly. LTG Duration 4 weeks Assessment Summary Assessment Pt was challenged by some of the dual task challenges. Continues to need cues for form with exercises, most likely due to not practicing exercises at home. Physical Therapy Plan Frequency and Duration Frequency of Treatment 4x/Week Plan of Care Start Date 06/21/21 Plan of Care End Date 07/26/21 Therapeutic Interventions Therapeutic Interventions Balance Training,Coordination Training,Gait Training,Home Exercise Program,Manual Therapy,Neuromuscular Re- education,Therapeutic Activities,Therapeutic Exercises Next Visit Focus/Plan Next Note Type Treatment Note Next Visit Plan Continue Standard LSVT Big exercises, begin balance work and continue gait with increased emphasis on heel strike and arm swings
--- NOTE | 2021-07-02 12:09 | PT.OTN ---
Current Diagnoses Parkinson's disease (07/02/21) Other abnormalities of gait and mobility (07/02/21) Physical Therapy Treatment Note PT-OP-A Visit Information Start: 06/21/21 07:47 Freq: Status: Active Protocol: Document 07/02/21 11:08 MA (Rec: 07/02/21 12:09 MA [id number]) Out-Patient Physical Therapy Visit Information Visit Information Visit Type Treatment Note Visit Start Time 11:00 Visit Stop Time 11:55 Total Visit Minutes 55 Visit Number 6 Number of PET ADOPTION COUNSELOR Visits 1 PT-OP-B Current Condition Start: 06/21/21 07:47 Freq: Status: Active Protocol: Document 06/21/21 11:00 AMB (Rec: 06/21/21 14:26 AMB [email or web address]) Current Condition History of Current Condition Onset Date 3 years ago Current Complaints L tremor History of Current Condition Allyson noticed a feeling of a tremor starting in his left hand 3 years ago. Recently he has been diagnosed with Parkinson's. 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 He is anxious about his future with PD, but denies any difficulty with his ADLs currently denies falls, he does not really exercise, he goes on walks sometimes. He does have some chronic low back pain but denies that it affects him much. Personal Factors Other Personal Factors That May Effect [place], blood clot to L macula, hx Therapy/Recovery cardiac bypass, hypertension. PT-OP-C Subjective Start: 06/21/21 07:47 Freq: Status: Active Protocol: Document 07/02/21 11:08 MA (Rec: 07/02/21 12:09 MA [id number]) OP-PT Subjective Patient Comments Patient Comments I haven;t done the exercises but I did do some of my own balance exercises one day PT-OP-D Balance Start: 06/21/21 07:47 Freq: Status: Active Protocol: Document 06/21/21 14:26 AMB (Rec: 06/21/21 14:32 AMB [email or web address]) OP-PT Balance Assessment Standing Balance Standing Balance Comments single leg stance 10 seconds + Pickering Fall Scale Copyright Permission PT-OP-E Functional Tests Start: 06/21/21 07:47 Freq: Status: Active Protocol: Document 06/21/21 14:26 AMB (Rec: 06/21/21 14:32 AMB [email or web address]) Functional Tests 6 Minute Walk Test Distance 1384 Device Used none PT-OP-G Mobility & Gait Start: 06/21/21 07:47 Freq: Status: Active Protocol: Document 06/21/21 14:26 AMB (Rec: 06/21/21 14:32 AMB [email or web address]) OP Gait Assessment Comments Gait Comments Reduced arm swing on the left especially with extension. PT-OP-H Neuro Start: 06/21/21 07:47 Freq: Status: Active Protocol: Document 06/21/21 14:26 AMB (Rec: 06/21/21 14:32 AMB [email or web address]) Vital Signs Blood Pressure Sitting Blood Pressure (90/60-120/80 mmHg) 140/86 H Blood Pressure Source Manual Cuff,Right Upper Extremity Oxygen Pulse Oximetry at Rest (%) (95-100 %) 94 L Pulse Oximetry with Activity (%) (95-100 95 %) Oxygen Delivery Method Room Air PT-OP-M Strength Start: 06/21/21 07:47 Freq: Status: Active Protocol: Document 06/21/21 14:26 AMB (Rec: 06/21/21 14:32 AMB [email or web address]) Hand Freight Agent/Pinch Strength Hand Dominance Hand Dominance Right Hip Strength Hip Manual Muscle Testing Left Comments Grossly 5/5 in hip flex, knee flex/ext and ankle df. Good pinch and dental technologist strength bilaterally. PT-OP-Q Treatments Start: 06/21/21 07:47 Freq: Status: Active Protocol: Document 07/02/21 11:08 MA (Rec: 07/02/21 12:09 MA [id number]) Gym Equipment Shuttle Balance Red Clips Comments WBOS & NBOS fwd only, throw and catch to PT- states it hurts his feet, challenged by dual task Gait Training Gait Activity Walking Description uneven terrain- grass, curbs, stairs Surface uneven Distance/Duration 6' Treatment Focus BIG arm swings Comments up hill Also walked in hallway with head turns, quick stops, and quick turns Neuro Re-Education Treatment Balance Activities SLS Comments 1. trials with EC 2. while throwing ball with PT Tandem Stance Surface blue foam Comments 1. Eyes closed trials 2. while throwing ball with PT Other Activities Sit<>Stand Details no UEs Reps/Duration 10x Comments marinelli cushion Sideways Rock & Reach Reps/Duration 10x Fwd Rock & Reach Reps/Duration 10x Backward Step & Reach Reps/Duration 10x Comments heavy cues Sideways Step & reach Reps/Duration 10x Comments alternating Fwd Step & Reach Reps/Duration 10x Comments alternating Side to Side Details added flicks Reps/Duration 10x Comments alternating sides Floor to Ceiling Details added flicks Reps/Duration 10x PT-OP-T Assessment and Plan Start: 06/21/21 16:12 Freq: Status: Active Protocol: Document 07/02/21 11:08 MA (Rec: 07/02/21 12:09 MA [id number]) Physical Therapy Assessment Goals Two Impairment Exercise program Short Term Goal (STG) Allyson will be independent with the standard LSVT BIG exercise program. STG Duration 2 weeks Utility Operator Yarn Goal (LTG) Allyson will be independent and consistent with a community based exercise program. LTG Duration 4 weeks One Impairment Gait Short Term Goal (STG) Allyson will improve his 6MWT to over 1,500ft to show appropriate gait speed for his age/gender. STG Duration 2 weeks Utility Operator Yarn Goal (LTG) Allyson will ambulate with good bilateral arm swing when walking quickly. LTG Duration 4 weeks Assessment Summary Assessment Pt has not done his BIG exercises at home. Reminded pt of the purpose of BIG exercises and doing them twice every day for carryover. He is showing improvement with his balance but is challenged by dual task challenges while balancing. Physical Therapy Plan Frequency and Duration Frequency of Treatment 4x/Week Plan of Care Start Date 06/21/21 Plan of Care End Date 07/26/21 Therapeutic Interventions Therapeutic Interventions Balance Training,Coordination Training,Gait Training,Home Exercise Program,Manual Therapy,Neuromuscular Re- education,Therapeutic Activities,Therapeutic Exercises Next Visit Focus/Plan Next Note Type Treatment Note Next Visit Plan Continue Standard LSVT Big exercises, begin balance work and continue gait with increased emphasis on heel strike and arm swings
--- NOTE | 2021-07-03 15:39 | PT.OTN ---
Current Diagnoses Parkinson's disease (07/03/21) Other abnormalities of gait and mobility (07/03/21) Physical Therapy Treatment Note PT-OP-A Visit Information Start: 06/21/21 07:47 Freq: Status: Active Protocol: Document 07/03/21 11:00 AMB (Rec: 07/03/21 15:39 AMB [email or web address]) Out-Patient Physical Therapy Visit Information Visit Information Visit Type Treatment Note Visit Start Time 11:00 Visit Stop Time 12:00 Total Visit Minutes 60 Visit Number 7 PT-OP-B Current Condition Start: 06/21/21 07:47 Freq: Status: Active Protocol: Document 06/21/21 11:00 AMB (Rec: 06/21/21 14:26 AMB [email or web address]) Current Condition History of Current Condition Onset Date 3 years ago Current Complaints L tremor History of Current Condition Allyson noticed a feeling of a tremor starting in his left hand 3 years ago. Recently he has been diagnosed with Parkinson's. 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 He is anxious about his future with PD, but denies any difficulty with his ADLs currently denies falls, he does not really exercise, he goes on walks sometimes. He does have some chronic low back pain but denies that it affects him much. Personal Factors Other Personal Factors That May Effect [place], blood clot to L macula, hx Therapy/Recovery cardiac bypass, hypertension. PT-OP-C Subjective Start: 06/21/21 07:47 Freq: Status: Active Protocol: Document 07/03/21 11:00 AMB (Rec: 07/03/21 15:39 AMB [email or web address]) OP-PT Subjective Patient Comments Patient Comments Haven't done the exercises PT-OP-D Balance Start: 06/21/21 07:47 Freq: Status: Active Protocol: Document 06/21/21 14:26 AMB (Rec: 06/21/21 14:32 AMB [email or web address]) OP-PT Balance Assessment Standing Balance Standing Balance Comments single leg stance 10 seconds + Pickering Fall Scale Copyright Permission PT-OP-E Functional Tests Start: 06/21/21 07:47 Freq: Status: Active Protocol: Document 06/21/21 14:26 AMB (Rec: 06/21/21 14:32 AMB [email or web address]) Functional Tests 6 Minute Walk Test Distance 1384 Device Used none PT-OP-G Mobility & Gait Start: 06/21/21 07:47 Freq: Status: Active Protocol: Document 06/21/21 14:26 AMB (Rec: 06/21/21 14:32 AMB [email or web address]) OP Gait Assessment Comments Gait Comments Reduced arm swing on the left especially with extension. PT-OP-H Neuro Start: 06/21/21 07:47 Freq: Status: Active Protocol: Document 06/21/21 14:26 AMB (Rec: 06/21/21 14:32 AMB [email or web address]) Vital Signs Blood Pressure Sitting Blood Pressure (90/60-120/80 mmHg) 140/86 H Blood Pressure Source Manual Cuff,Right Upper Extremity Oxygen Pulse Oximetry at Rest (%) (95-100 %) 94 L Pulse Oximetry with Activity (%) (95-100 95 %) Oxygen Delivery Method Room Air PT-OP-M Strength Start: 06/21/21 07:47 Freq: Status: Active Protocol: Document 06/21/21 14:26 AMB (Rec: 06/21/21 14:32 AMB [email or web address]) Hand Human Factors Specialist/Pinch Strength Hand Dominance Hand Dominance Right Hip Strength Hip Manual Muscle Testing Left Comments Grossly 5/5 in hip flex, knee flex/ext and ankle df. Good pinch and auto bumper straightener strength bilaterally. PT-OP-Q Treatments Start: 06/21/21 07:47 Freq: Status: Active Protocol: Document 07/03/21 11:00 AMB (Rec: 07/03/21 15:39 AMB [email or web address]) Gait Training Gait Activity Stairs Comments carrying box with 10# up and down 2 flights of stairs Neuro Re-Education Treatment Other Activities Sit<>Stand Details no UEs Reps/Duration 10x Comments blue cushion Sideways Rock & Reach Reps/Duration 10x Comments alternating Fwd Rock & Reach Reps/Duration 10x Backward Step & Reach Reps/Duration 10x Comments alternating Sideways Step & reach Reps/Duration 10x Comments alternating Fwd Step & Reach Reps/Duration 10x Comments alternating Side to Side Details added flicks Reps/Duration 10x Comments alternating sides Floor to Ceiling Details added flicks Reps/Duration 10x Self-Care/Home Management Treatment Education Other Education Extensive discussion of motivation, habit forming, importance of exercise in progression of PD PT-OP-T Assessment and Plan Start: 06/21/21 16:12 Freq: Status: Active Protocol: Document 07/03/21 11:00 AMB (Rec: 07/03/21 15:39 AMB [email or web address]) Physical Therapy Assessment Goals Two Impairment Exercise program Short Term Goal (STG) Allyson will be independent with the standard LSVT BIG exercise program. STG Duration 2 weeks Security Director Goal (LTG) Allyson will be independent and consistent with a community based exercise program. LTG Duration 4 weeks One Impairment Gait Short Term Goal (STG) Allyson will improve his 6MWT to over 1,500ft to show appropriate gait speed for his age/gender. STG Duration 2 weeks Security Director Goal (LTG) Allyson will ambulate with good bilateral arm swing when walking quickly. LTG Duration 4 weeks Assessment Summary Assessment Considerable education on importance of starting exercising at home habit now while in PT. Pt verbalizes understanding but it is hard for him to make changes. Continued cues for L shoulder extension with gait and exercises. Physical Therapy Plan Frequency and Duration Frequency of Treatment 4x/Week Plan of Care Start Date 06/21/21 Plan of Care End Date 07/26/21 Therapeutic Interventions Therapeutic Interventions Balance Training,Coordination Training,Gait Training,Home Exercise Program,Manual Therapy,Neuromuscular Re- education,Therapeutic Activities,Therapeutic Exercises Next Visit Focus/Plan Next Note Type Treatment Note Next Visit Plan Continue Standard LSVT Big exercises, begin balance work and continue gait with increased emphasis on heel strike and arm swings, can consider progression with wrist weights vs balance on blue mat during exercises, continue to emphasize HEP
--- NOTE | 2021-07-04 12:00 | PT.OTN ---
Current Diagnoses Parkinson's disease (07/04/21) Other abnormalities of gait and mobility (07/04/21) Physical Therapy Treatment Note PT-OP-A Visit Information Start: 06/21/21 07:47 Freq: Status: Active Protocol: Document 07/04/21 10:58 MA (Rec: 07/04/21 11:59 MA [id number]) Out-Patient Physical Therapy Visit Information Visit Information Visit Type Treatment Note Visit Start Time 11:00 Visit Stop Time 11:55 Total Visit Minutes 55 Visit Number 8 Number of TELETYPE MECHANIC Visits 1 PT-OP-B Current Condition Start: 06/21/21 07:47 Freq: Status: Active Protocol: Document 06/21/21 11:00 AMB (Rec: 06/21/21 14:26 AMB [email or web address]) Current Condition History of Current Condition Onset Date 3 years ago Current Complaints L tremor History of Current Condition Allyson noticed a feeling of a tremor starting in his left hand 3 years ago. Recently he has been diagnosed with Parkinson's. 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 He is anxious about his future with PD, but denies any difficulty with his ADLs currently denies falls, he does not really exercise, he goes on walks sometimes. He does have some chronic low back pain but denies that it affects him much. Personal Factors Other Personal Factors That May Effect [place], blood clot to L macula, hx Therapy/Recovery cardiac bypass, hypertension. PT-OP-C Subjective Start: 06/21/21 07:47 Freq: Status: Active Protocol: Document 07/04/21 10:58 MA (Rec: 07/04/21 11:59 MA [id number]) OP-PT Subjective Patient Comments Patient Comments Pt states No I didn't do them , I watched the game though PT-OP-D Balance Start: 06/21/21 07:47 Freq: Status: Active Protocol: Document 06/21/21 14:26 AMB (Rec: 06/21/21 14:32 AMB [email or web address]) OP-PT Balance Assessment Standing Balance Standing Balance Comments single leg stance 10 seconds + Pickering Fall Scale Copyright Permission PT-OP-E Functional Tests Start: 06/21/21 07:47 Freq: Status: Active Protocol: Document 06/21/21 14:26 AMB (Rec: 06/21/21 14:32 AMB [email or web address]) Functional Tests 6 Minute Walk Test Distance 1384 Device Used none PT-OP-G Mobility & Gait Start: 06/21/21 07:47 Freq: Status: Active Protocol: Document 06/21/21 14:26 AMB (Rec: 06/21/21 14:32 AMB [email or web address]) OP Gait Assessment Comments Gait Comments Reduced arm swing on the left especially with extension. PT-OP-H Neuro Start: 06/21/21 07:47 Freq: Status: Active Protocol: Document 06/21/21 14:26 AMB (Rec: 06/21/21 14:32 AMB [email or web address]) Vital Signs Blood Pressure Sitting Blood Pressure (90/60-120/80 mmHg) 140/86 H Blood Pressure Source Manual Cuff,Right Upper Extremity Oxygen Pulse Oximetry at Rest (%) (95-100 %) 94 L Pulse Oximetry with Activity (%) (95-100 95 %) Oxygen Delivery Method Room Air PT-OP-M Strength Start: 06/21/21 07:47 Freq: Status: Active Protocol: Document 06/21/21 14:26 AMB (Rec: 06/21/21 14:32 AMB [email or web address]) Hand Credit Product Analyst/Pinch Strength Hand Dominance Hand Dominance Right Hip Strength Hip Manual Muscle Testing Left Comments Grossly 5/5 in hip flex, knee flex/ext and ankle df. Good pinch and marshmallow machine operator strength bilaterally. PT-OP-Q Treatments Start: 06/21/21 07:47 Freq: Status: Active Protocol: Document 07/04/21 10:58 MA (Rec: 07/04/21 11:59 MA [id number]) Gym Equipment Shuttle Balance Red Clips Comments WBOS,NBOS, modified tandem stance fwd only, throw and catch to rebounder- states it hurts his feet, challenged by dual task Gait Training Gait Activity Walking Description uneven terrain- grass, curbs, stairs Surface uneven Distance/Duration 6' Treatment Focus BIG arm swings Comments up hill Also walked in hallway with head turns, quick stops, and quick turns Neuro Re-Education Treatment Balance Activities SLS Comments 1. trials with EC 2. while throwing ball with PT Tandem Stance Comments standing on 1/2 foam roll throwing ball Other Activities Sit<>Stand Details no UEs Reps/Duration 10x Comments 1/2 roller under feet Sideways Rock & Reach Reps/Duration 10x Comments alternating Fwd Rock & Reach Reps/Duration 10x Backward Step & Reach Reps/Duration 10x Comments alternating Sideways Step & reach Reps/Duration 10x Comments alternating Fwd Step & Reach Reps/Duration 10x Comments alternating Side to Side Details added flicks Reps/Duration 10x Comments alternating sides Floor to Ceiling Details added flicks Reps/Duration 10x Self-Care/Home Management Treatment Education Other Education Reminder of importance of doing BIG program at home for carryover when finished in PT. PT-OP-T Assessment and Plan Start: 06/21/21 16:12 Freq: Status: Active Protocol: Document 07/04/21 10:58 MA (Rec: 07/04/21 11:59 MA [id number]) Physical Therapy Assessment Goals Two Impairment Exercise program Short Term Goal (STG) Allyson will be independent with the standard LSVT BIG exercise program. STG Duration 2 weeks Senior Care Goal (LTG) Allyson will be independent and consistent with a community based exercise program. LTG Duration 4 weeks One Impairment Gait Short Term Goal (STG) Allyson will improve his 6MWT to over 1,500ft to show appropriate gait speed for his age/gender. STG Duration 2 weeks Senior Care Goal (LTG) Allyson will ambulate with good bilateral arm swing when walking quickly. LTG Duration 4 weeks Assessment Summary Assessment Pt was able to lead 2/7 BIG exercises without requiring cues. He can now reach all the way down to floor during floor>ceiling exercise and states he has been impressed with how good he feels after he finishes therapy daily. Reminded pt he is supposed to be performing exercises twice daily with pt stating he will start trying to make a better effort. Physical Therapy Plan Frequency and Duration Frequency of Treatment 4x/Week Plan of Care Start Date 06/21/21 Plan of Care End Date 07/26/21 Therapeutic Interventions Therapeutic Interventions Balance Training,Coordination Training,Gait Training,Home Exercise Program,Manual Therapy,Neuromuscular Re- education,Therapeutic Activities,Therapeutic Exercises Next Visit Focus/Plan Next Note Type Treatment Note Next Visit Plan Continue Standard LSVT Big exercises, begin balance work and continue gait with increased emphasis on heel strike and arm swings, can consider progression with wrist weights vs balance on blue mat during exercises, continue to emphasize HEP
--- NOTE | 2021-07-05 12:56 | PT.OTN ---
Current Diagnoses Parkinson's disease (07/05/21) Other abnormalities of gait and mobility (07/05/21) Physical Therapy Treatment Note PT-OP-A Visit Information Start: 06/21/21 07:47 Freq: Status: Active Protocol: Document 07/05/21 11:05 AMB (Rec: 07/05/21 11:44 AMB [id number]) Out-Patient Physical Therapy Visit Information Visit Information Visit Type Progress Note Visit Start Time 11:00 Visit Stop Time 12:00 Total Visit Minutes 60 Visit Number 9 PT-OP-B Current Condition Start: 06/21/21 07:47 Freq: Status: Active Protocol: Document 06/21/21 11:00 AMB (Rec: 06/21/21 14:26 AMB [email or web address]) Current Condition History of Current Condition Onset Date 3 years ago Current Complaints L tremor History of Current Condition Allyson noticed a feeling of a tremor starting in his left hand 3 years ago. Recently he has been diagnosed with Parkinson's. 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 He is anxious about his future with PD, but denies any difficulty with his ADLs currently denies falls, he does not really exercise, he goes on walks sometimes. He does have some chronic low back pain but denies that it affects him much. Personal Factors Other Personal Factors That May Effect [place], blood clot to L macula, hx Therapy/Recovery cardiac bypass, hypertension. PT-OP-C Subjective Start: 06/21/21 07:47 Freq: Status: Active Protocol: Document 07/05/21 11:00 AMB (Rec: 07/05/21 12:49 AMB [email or web address]) OP-PT Subjective Patient Comments Patient Comments Pt reports he did a few of his BIG exercises last night. He is wearing different shoes today to see if that helps his foot pain. He noticed some trunk pain with the rotation exercises last night. PT-OP-D Balance Start: 06/21/21 07:47 Freq: Status: Active Protocol: Document 06/21/21 14:26 AMB (Rec: 06/21/21 14:32 AMB [email or web address]) OP-PT Balance Assessment Standing Balance Standing Balance Comments single leg stance 10 seconds + Pickering Fall Scale Copyright Permission PT-OP-E Functional Tests Start: 06/21/21 07:47 Freq: Status: Active Protocol: Document 06/21/21 14:26 AMB (Rec: 06/21/21 14:32 AMB [email or web address]) Functional Tests 6 Minute Walk Test Distance 1384 Device Used none PT-OP-G Mobility & Gait Start: 06/21/21 07:47 Freq: Status: Active Protocol: Document 07/05/21 11:00 AMB (Rec: 07/05/21 12:50 AMB [email or web address]) OP Gait Assessment Comments Gait Comments 1,604 ft in 6 minutes PT-OP-H Neuro Start: 06/21/21 07:47 Freq: Status: Active Protocol: Document 06/21/21 14:26 AMB (Rec: 06/21/21 14:32 AMB [email or web address]) Vital Signs Blood Pressure Sitting Blood Pressure (90/60-120/80 mmHg) 140/86 H Blood Pressure Source Manual Cuff,Right Upper Extremity Oxygen Pulse Oximetry at Rest (%) (95-100 %) 94 L Pulse Oximetry with Activity (%) (95-100 95 %) Oxygen Delivery Method Room Air PT-OP-M Strength Start: 06/21/21 07:47 Freq: Status: Active Protocol: Document 06/21/21 14:26 AMB (Rec: 06/21/21 14:32 AMB [email or web address]) Hand Pilot Can Router/Pinch Strength Hand Dominance Hand Dominance Right Hip Strength Hip Manual Muscle Testing Left Comments Grossly 5/5 in hip flex, knee flex/ext and ankle df. Good pinch and shingle catcher strength bilaterally. PT-OP-Q Treatments Start: 06/21/21 07:47 Freq: Status: Active Protocol: Document 07/05/21 11:00 AMB (Rec: 07/05/21 11:58 AMB [id number]) Gym Equipment Shuttle Balance Red Clips Comments WBOS,NBOS, modified tandem stance fwd only, m/l with WBOS and throw and catch to PT Gait Training Gait Activity Walking Description 6MWT Surface smooth Distance/Duration 6' Treatment Focus BIG arm swings Comments 1,604ft, better arm swing and heel strike but better than eval, Neuro Re-Education Treatment Other Activities Sit<>Stand Details no UEs Reps/Duration 10x Comments 1/2 roller under feet Sideways Rock & Reach Reps/Duration 10x Comments alternating blue mat Fwd Rock & Reach Reps/Duration 10x Comments blue mat Backward Step & Reach Reps/Duration 10x Comments alternating on blue mat Sideways Step & reach Reps/Duration 10x Comments alternating on blue mat Fwd Step & Reach Reps/Duration 10x Comments alternating on blue mat Side to Side Details added flicks Reps/Duration 10x Comments alternating sides Floor to Ceiling Details added flicks Reps/Duration 10x PT-OP-T Assessment and Plan Start: 06/21/21 16:12 Freq: Status: Active Protocol: Document 07/05/21 11:05 AMB (Rec: 07/05/21 11:44 AMB [id number]) Physical Therapy Assessment Goals Two Impairment Exercise program Short Term Goal (STG) Allyson will be independent with the standard LSVT BIG exercise program. STG Duration 2 weeks [facility] Goal (LTG) Allyson will be independent and consistent with a community based exercise program. LTG Duration 4 weeks One Impairment Gait Short Term Goal (STG) Allyson will improve his 6MWT to over 1,500ft to show appropriate gait speed for his age/gender. STG Duration MET Resident Care Aid Goal (LTG) Allyson will ambulate with good bilateral arm swing when walking quickly. LTG Duration 4 weeks Assessment Summary Assessment 1,604 ft in 6MWT, Allyson is making gains in PT, although his consistency with exercise is limited. He is able to lead 4/7 exercises today, challenged most by backwards stepping and needing cues for increased L shoulder extension . Physical Therapy Plan Next Visit Focus/Plan Next Note Type Treatment Note Next Visit Plan Continue Standard LSVT Big exercises, begin balance work and continue gait with increased emphasis on heel strike and arm swings, can consider progression with wrist weights vs balance on blue mat during exercises, continue to emphasize HEP
--- NOTE | 2021-07-09 12:06 | PT.OTN ---
Current Diagnoses Parkinson's disease (07/09/21) Other abnormalities of gait and mobility (07/09/21) Physical Therapy Treatment Note PT-OP-A Visit Information Start: 06/21/21 07:47 Freq: Status: Active Protocol: Document 07/09/21 10:59 MA (Rec: 07/09/21 12:06 MA [id number]) Out-Patient Physical Therapy Visit Information Visit Information Visit Type Treatment Note Visit Start Time 11:00 Visit Stop Time 11:55 Total Visit Minutes 55 Visit Number 10 Number of PUNCH MACHINE HAND Visits 1 PT-OP-B Current Condition Start: 06/21/21 07:47 Freq: Status: Active Protocol: Document 06/21/21 11:00 AMB (Rec: 06/21/21 14:26 AMB [email or web address]) Current Condition History of Current Condition Onset Date 3 years ago Current Complaints L tremor History of Current Condition Allyson noticed a feeling of a tremor starting in his left hand 3 years ago. Recently he has been diagnosed with Parkinson's. 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 He is anxious about his future with PD, but denies any difficulty with his ADLs currently denies falls, he does not really exercise, he goes on walks sometimes. He does have some chronic low back pain but denies that it affects him much. Personal Factors Other Personal Factors That May Effect [place], blood clot to L macula, hx Therapy/Recovery cardiac bypass, hypertension. PT-OP-C Subjective Start: 06/21/21 07:47 Freq: Status: Active Protocol: Document 07/09/21 10:59 MA (Rec: 07/09/21 12:06 MA [id number]) OP-PT Subjective Patient Comments Patient Comments I did do some of the exercises and some of my own stretches and worked on standing on one foot at home this weekend PT-OP-D Balance Start: 06/21/21 07:47 Freq: Status: Active Protocol: Document 06/21/21 14:26 AMB (Rec: 06/21/21 14:32 AMB [email or web address]) OP-PT Balance Assessment Standing Balance Standing Balance Comments single leg stance 10 seconds + Pickering Fall Scale Copyright Permission PT-OP-E Functional Tests Start: 06/21/21 07:47 Freq: Status: Active Protocol: Document 06/21/21 14:26 AMB (Rec: 06/21/21 14:32 AMB [email or web address]) Functional Tests 6 Minute Walk Test Distance 1384 Device Used none PT-OP-G Mobility & Gait Start: 06/21/21 07:47 Freq: Status: Active Protocol: Document 07/05/21 11:00 AMB (Rec: 07/05/21 12:50 AMB [email or web address]) OP Gait Assessment Comments Gait Comments 1,604 ft in 6 minutes PT-OP-H Neuro Start: 06/21/21 07:47 Freq: Status: Active Protocol: Document 06/21/21 14:26 AMB (Rec: 06/21/21 14:32 AMB [email or web address]) Vital Signs Blood Pressure Sitting Blood Pressure (90/60-120/80 mmHg) 140/86 H Blood Pressure Source Manual Cuff,Right Upper Extremity Oxygen Pulse Oximetry at Rest (%) (95-100 %) 94 L Pulse Oximetry with Activity (%) (95-100 95 %) Oxygen Delivery Method Room Air PT-OP-M Strength Start: 06/21/21 07:47 Freq: Status: Active Protocol: Document 06/21/21 14:26 AMB (Rec: 06/21/21 14:32 AMB [email or web address]) Hand Research Laboratory Manager/Pinch Strength Hand Dominance Hand Dominance Right Hip Strength Hip Manual Muscle Testing Left Comments Grossly 5/5 in hip flex, knee flex/ext and ankle df. Good pinch and network control operators supervisor strength bilaterally. PT-OP-Q Treatments Start: 06/21/21 07:47 Freq: Status: Active Protocol: Document 07/09/21 10:59 MA (Rec: 07/09/21 12:06 MA [id number]) Gait Training Gait Activity Stairs Description lobby stairs Distance/Duration 26 steps x2 Comments cues to place full foot on step vs just forefoot Walking Surface outdoor uneven surfaces Distance/Duration 8' Treatment Focus BIG arm swings Neuro Re-Education Treatment Balance Activities SLS Comments 1. SLS solid floor 2. SLS black side of bosu while holding countertop Tandem Stance Comments standing on 1/2 foam roll throwing ball - true tandem stance today Other Activities Sit<>Stand Details no UEs Reps/Duration 10x2 Comments 1. 1/2 roller under feet 2. blue large osvaldo disc Sideways Rock & Reach Reps/Duration 10x Comments alternating blue mat Fwd Rock & Reach Reps/Duration 10x Comments blue mat Backward Step & Reach Reps/Duration 10x Comments alternating on blue mat Sideways Step & reach Reps/Duration 10x Comments alternating on blue mat Fwd Step & Reach Reps/Duration 10x Comments alternating on blue mat Side to Side Details added flicks Reps/Duration 10x Comments alternating sides Floor to Ceiling Details added flicks Reps/Duration 10x PT-OP-T Assessment and Plan Start: 06/21/21 16:12 Freq: Status: Active Protocol: Document 07/09/21 10:59 MA (Rec: 07/09/21 12:06 MA [id number]) Physical Therapy Assessment Goals Two Impairment Exercise program Short Term Goal (STG) Allyson will be independent with the standard LSVT BIG exercise program. STG Duration 2 weeks Clinical Biochemical Geneticist Goal (LTG) Allyson will be independent and consistent with a community based exercise program. LTG Duration 4 weeks One Impairment Gait Short Term Goal (STG) Allyson will improve his 6MWT to over 1,500ft to show appropriate gait speed for his age/gender. STG Duration MET Clinical Biochemical Geneticist Goal (LTG) Allyson will ambulate with good bilateral arm swing when walking quickly. LTG Duration 4 weeks Assessment Summary Assessment Allyson required less frequent rest breaks today but needed minor cues for all BIG exercises. He has improved with backward stepping and is able to complete full exercise without stepping out laterally due to LOB. Allyson c/o foot pain when balancing for longer than one minute but could complete full tandem stance on 1/2 foam rollers this session while throwing ball with PT vs his usual modified tandem stance. While Allyson still requires cues for BIG exercises, he has improved his balance, completing tandem stance without modifications today, and endurance as evidence by less SOB and seated rest breaks throughout session. Physical Therapy Plan Frequency and Duration Frequency of Treatment 4x/Week Plan of Care Start Date 06/21/21 Plan of Care End Date 07/26/21 Therapeutic Interventions Therapeutic Interventions Balance Training,Coordination Training,Gait Training,Home Exercise Program,Manual Therapy,Neuromuscular Re- education,Therapeutic Activities,Therapeutic Exercises Next Visit Focus/Plan Next Note Type Treatment Note Next Visit Plan Continue Standard LSVT Big exercises, begin balance work and continue gait with increased emphasis on heel strike and arm swings, can consider progression with wrist weights vs balance on blue mat during exercises, continue to emphasize HEP
--- NOTE | 2021-07-10 14:17 | PT.OTN ---
Current Diagnoses Parkinson's disease (07/10/21) Other abnormalities of gait and mobility (07/10/21) Physical Therapy Treatment Note PT-OP-A Visit Information Start: 06/21/21 07:47 Freq: Status: Active Protocol: Document 07/10/21 10:56 AMB (Rec: 07/10/21 11:57 AMB [id number]) Out-Patient Physical Therapy Visit Information Visit Information Visit Type Treatment Note Visit Start Time 11:00 Visit Stop Time 12:00 Total Visit Minutes 60 Visit Number 11 PT-OP-B Current Condition Start: 06/21/21 07:47 Freq: Status: Active Protocol: Document 06/21/21 11:00 AMB (Rec: 06/21/21 14:26 AMB [email or web address]) Current Condition History of Current Condition Onset Date 3 years ago Current Complaints L tremor History of Current Condition Allyson noticed a feeling of a tremor starting in his left hand 3 years ago. Recently he has been diagnosed with Parkinson's. 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 He is anxious about his future with PD, but denies any difficulty with his ADLs currently denies falls, he does not really exercise, he goes on walks sometimes. He does have some chronic low back pain but denies that it affects him much. Personal Factors Other Personal Factors That May Effect [place], blood clot to L macula, hx Therapy/Recovery cardiac bypass, hypertension. PT-OP-C Subjective Start: 06/21/21 07:47 Freq: Status: Active Protocol: Document 07/10/21 10:56 AMB (Rec: 07/10/21 11:57 AMB [id number]) OP-PT Subjective Patient Comments Patient Comments Pt some superfeet in today and interested if that will help his feet. PT-OP-D Balance Start: 06/21/21 07:47 Freq: Status: Active Protocol: Document 06/21/21 14:26 AMB (Rec: 06/21/21 14:32 AMB [email or web address]) OP-PT Balance Assessment Standing Balance Standing Balance Comments single leg stance 10 seconds + Pickering Fall Scale Copyright Permission PT-OP-E Functional Tests Start: 06/21/21 07:47 Freq: Status: Active Protocol: Document 06/21/21 14:26 AMB (Rec: 06/21/21 14:32 AMB [email or web address]) Functional Tests 6 Minute Walk Test Distance 1384 Device Used none PT-OP-G Mobility & Gait Start: 06/21/21 07:47 Freq: Status: Active Protocol: Document 07/05/21 11:00 AMB (Rec: 07/05/21 12:50 AMB [email or web address]) OP Gait Assessment Comments Gait Comments 1,604 ft in 6 minutes PT-OP-H Neuro Start: 06/21/21 07:47 Freq: Status: Active Protocol: Document 06/21/21 14:26 AMB (Rec: 06/21/21 14:32 AMB [email or web address]) Vital Signs Blood Pressure Sitting Blood Pressure (90/60-120/80 mmHg) 140/86 H Blood Pressure Source Manual Cuff,Right Upper Extremity Oxygen Pulse Oximetry at Rest (%) (95-100 %) 94 L Pulse Oximetry with Activity (%) (95-100 95 %) Oxygen Delivery Method Room Air PT-OP-M Strength Start: 06/21/21 07:47 Freq: Status: Active Protocol: Document 06/21/21 14:26 AMB (Rec: 06/21/21 14:32 AMB [email or web address]) Hand Food Chemist/Pinch Strength Hand Dominance Hand Dominance Right Hip Strength Hip Manual Muscle Testing Left Comments Grossly 5/5 in hip flex, knee flex/ext and ankle df. Good pinch and pulley maintainer strength bilaterally. PT-OP-Q Treatments Start: 06/21/21 07:47 Freq: Status: Active Protocol: Document 07/10/21 14:14 AMB (Rec: 07/10/21 14:16 AMB [email or web address]) Gait Training Gait Activity Stairs Description lobby stairs Distance/Duration 26 steps x2 Comments cues to place full foot on step vs just forefoot Walking Surface indoor Distance/Duration 6' Treatment Focus BIG armswings Neuro Re-Education Treatment Balance Activities agility ladder Comments side stepping in and out, difficult with speed, pt fatigues quickly Other Activities Sit<>Stand Details no UEs Reps/Duration 10x2 Comments 1. 1/2 roller under feet 2. bosu ball with black side up Sideways Rock & Reach Reps/Duration 10x Comments alternating blue mat Fwd Rock & Reach Reps/Duration 10x Comments blue mat Backward Step & Reach Reps/Duration 10x Comments alternating on blue mat Sideways Step & reach Reps/Duration 10x Comments alternating on blue mat Fwd Step & Reach Reps/Duration 10x Comments alternating on blue mat Side to Side Details added flicks Reps/Duration 10x Comments alternating sides Floor to Ceiling Details added flicks Reps/Duration 10x PT-OP-T Assessment and Plan Start: 06/21/21 16:12 Freq: Status: Active Protocol: Document 07/10/21 11:00 AMB (Rec: 07/10/21 12:08 AMB [id number]) Physical Therapy Assessment Goals Two Impairment Exercise program Short Term Goal (STG) Allyson will be independent with the standard LSVT BIG exercise program. STG Duration 2 weeks Environmental Protection Officer Goal (LTG) Allyson will be independent and consistent with a community based exercise program. LTG Duration 4 weeks One Impairment Gait Short Term Goal (STG) Allyson will improve his 6MWT to over 1,500ft to show appropriate gait speed for his age/gender. STG Duration MET Alf Goal (LTG) Allyson will ambulate with good bilateral arm swing when walking quickly. LTG Duration 4 weeks Assessment Summary Assessment Pt's feet seemed to do better with superfeet today. Fatigued quickly with agility ladder exercises. Physical Therapy Plan Next Visit Focus/Plan Next Note Type Treatment Note Next Visit Plan Continue Standard LSVT Big exercises, promote independence and consistency with exercises/balance/gait
--- NOTE | 2021-07-11 11:59 | PT.OTN ---
Current Diagnoses Parkinson's disease (07/11/21) Other abnormalities of gait and mobility (07/11/21) Physical Therapy Treatment Note PT-OP-A Visit Information Start: 06/21/21 07:47 Freq: Status: Active Protocol: Document 07/11/21 10:52 MA (Rec: 07/11/21 11:59 MA [id number]) Out-Patient Physical Therapy Visit Information Visit Information Visit Type Treatment Note Visit Start Time 11:00 Visit Stop Time 11:57 Total Visit Minutes 57 Visit Number 12 Number of STUDENT DEAN Visits 1 PT-OP-B Current Condition Start: 06/21/21 07:47 Freq: Status: Active Protocol: Document 06/21/21 11:00 AMB (Rec: 06/21/21 14:26 AMB [email or web address]) Current Condition History of Current Condition Onset Date 3 years ago Current Complaints L tremor History of Current Condition Allyson noticed a feeling of a tremor starting in his left hand 3 years ago. Recently he has been diagnosed with Parkinson's. 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 He is anxious about his future with PD, but denies any difficulty with his ADLs currently denies falls, he does not really exercise, he goes on walks sometimes. He does have some chronic low back pain but denies that it affects him much. Personal Factors Other Personal Factors That May Effect [place], blood clot to L macula, hx Therapy/Recovery cardiac bypass, hypertension. PT-OP-C Subjective Start: 06/21/21 07:47 Freq: Status: Active Protocol: Document 07/11/21 10:52 MA (Rec: 07/11/21 11:59 MA [id number]) OP-PT Subjective Patient Comments Patient Comments Pt states the superfeet seemed to help a lot with foot pain PT-OP-D Balance Start: 06/21/21 07:47 Freq: Status: Active Protocol: Document 06/21/21 14:26 AMB (Rec: 06/21/21 14:32 AMB [email or web address]) OP-PT Balance Assessment Standing Balance Standing Balance Comments single leg stance 10 seconds + Pickering Fall Scale Copyright Permission PT-OP-E Functional Tests Start: 06/21/21 07:47 Freq: Status: Active Protocol: Document 06/21/21 14:26 AMB (Rec: 06/21/21 14:32 AMB [email or web address]) Functional Tests 6 Minute Walk Test Distance 1384 Device Used none PT-OP-G Mobility & Gait Start: 06/21/21 07:47 Freq: Status: Active Protocol: Document 07/05/21 11:00 AMB (Rec: 07/05/21 12:50 AMB [email or web address]) OP Gait Assessment Comments Gait Comments 1,604 ft in 6 minutes PT-OP-H Neuro Start: 06/21/21 07:47 Freq: Status: Active Protocol: Document 06/21/21 14:26 AMB (Rec: 06/21/21 14:32 AMB [email or web address]) Vital Signs Blood Pressure Sitting Blood Pressure (90/60-120/80 mmHg) 140/86 H Blood Pressure Source Manual Cuff,Right Upper Extremity Oxygen Pulse Oximetry at Rest (%) (95-100 %) 94 L Pulse Oximetry with Activity (%) (95-100 95 %) Oxygen Delivery Method Room Air PT-OP-M Strength Start: 06/21/21 07:47 Freq: Status: Active Protocol: Document 06/21/21 14:26 AMB (Rec: 06/21/21 14:32 AMB [email or web address]) Hand Grants Officer/Pinch Strength Hand Dominance Hand Dominance Right Hip Strength Hip Manual Muscle Testing Left Comments Grossly 5/5 in hip flex, knee flex/ext and ankle df. Good pinch and fountain brush assembler strength bilaterally. PT-OP-Q Treatments Start: 06/21/21 07:47 Freq: Status: Active Protocol: Document 07/11/21 10:52 MA (Rec: 07/11/21 11:59 MA [id number]) Therapeutic Exercises Sitting Exercises Finger Opposition Sitting Exercise Name Starting single hand Side bilateral Comments challenged by doing bilaterally Gait Training Gait Activity Stairs Description lobby stairs Distance/Duration 26 steps x2 Comments cues to place full foot on step vs just forefoot Walking Surface indoor Distance/Duration 6' Treatment Focus BIG armswings Neuro Re-Education Treatment Balance Activities agility ladder Comments fwd and lateral drills SLS Comments 5 cone tap- star pattern 1. solid floor 2. blue mat Other Activities Sit<>Stand Details no UEs Reps/Duration 10x2 Comments 1. blue mat 2. osvaldo disc Sideways Rock & Reach Reps/Duration 10x Comments alternating blue mat Fwd Rock & Reach Reps/Duration 10x Comments blue mat Backward Step & Reach Reps/Duration 10x Comments alternating on blue mat Sideways Step & reach Reps/Duration 10x Comments alternating on blue mat Fwd Step & Reach Reps/Duration 10x Comments alternating on blue mat Side to Side Details added flicks Reps/Duration 10x Comments alternating sides Floor to Ceiling Details added flicks Reps/Duration 10x PT-OP-T Assessment and Plan Start: 06/21/21 16:12 Freq: Status: Active Protocol: Document 07/11/21 10:52 MA (Rec: 07/11/21 11:59 MA [id number]) Physical Therapy Assessment Goals Two Impairment Exercise program Short Term Goal (STG) Allyson will be independent with the standard LSVT BIG exercise program. STG Duration 2 weeks Factory Engineer Goal (LTG) Allyson will be independent and consistent with a community based exercise program. LTG Duration 4 weeks One Impairment Gait Short Term Goal (STG) Allyson will improve his 6MWT to over 1,500ft to show appropriate gait speed for his age/gender. STG Duration MET Factory Engineer Goal (LTG) Allyson will ambulate with good bilateral arm swing when walking quickly. LTG Duration 4 weeks Assessment Summary Assessment Pt is challenged by finger opposition exercise L>R. Added exercise to HEP and encouraged pt to try more than the sitting BIG exercises at home. Physical Therapy Plan Frequency and Duration Frequency of Treatment 4x/Week Plan of Care Start Date 06/21/21 Plan of Care End Date 07/26/21 Therapeutic Interventions Therapeutic Interventions Balance Training,Coordination Training,Gait Training,Home Exercise Program,Manual Therapy,Neuromuscular Re- education,Therapeutic Activities,Therapeutic Exercises Next Visit Focus/Plan Next Note Type Treatment Note Next Visit Plan Continue Standard LSVT Big exercises, promote independence and consistency with exercises/balance/gait
--- NOTE | 2021-07-12 13:02 | PT.OTN ---
Current Diagnoses Parkinson's disease (07/12/21) Other abnormalities of gait and mobility (07/12/21) Physical Therapy Treatment Note PT-OP-A Visit Information Start: 06/21/21 07:47 Freq: Status: Active Protocol: Document 07/12/21 11:06 AMB (Rec: 07/12/21 11:47 AMB [id number]) Out-Patient Physical Therapy Visit Information Visit Information Visit Type Treatment Note Visit Start Time 11:00 Visit Stop Time 12:00 Total Visit Minutes 60 Visit Number 13 PT-OP-B Current Condition Start: 06/21/21 07:47 Freq: Status: Active Protocol: Document 06/21/21 11:00 AMB (Rec: 06/21/21 14:26 AMB [email or web address]) Current Condition History of Current Condition Onset Date 3 years ago Current Complaints L tremor History of Current Condition Allyson noticed a feeling of a tremor starting in his left hand 3 years ago. Recently he has been diagnosed with Parkinson's. 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 He is anxious about his future with PD, but denies any difficulty with his ADLs currently denies falls, he does not really exercise, he goes on walks sometimes. He does have some chronic low back pain but denies that it affects him much. Personal Factors Other Personal Factors That May Effect [place], blood clot to L macula, hx Therapy/Recovery cardiac bypass, hypertension. PT-OP-C Subjective Start: 06/21/21 07:47 Freq: Status: Active Protocol: Document 07/12/21 11:00 AMB (Rec: 07/12/21 12:59 AMB [email or web address]) OP-PT Subjective Patient Comments Patient Comments Pt states he worked on finger opposition last night. PT-OP-D Balance Start: 06/21/21 07:47 Freq: Status: Active Protocol: Document 06/21/21 14:26 AMB (Rec: 06/21/21 14:32 AMB [email or web address]) OP-PT Balance Assessment Standing Balance Standing Balance Comments single leg stance 10 seconds + Pickering Fall Scale Copyright Permission PT-OP-E Functional Tests Start: 06/21/21 07:47 Freq: Status: Active Protocol: Document 06/21/21 14:26 AMB (Rec: 06/21/21 14:32 AMB [email or web address]) Functional Tests 6 Minute Walk Test Distance 1384 Device Used none PT-OP-G Mobility & Gait Start: 06/21/21 07:47 Freq: Status: Active Protocol: Document 07/05/21 11:00 AMB (Rec: 07/05/21 12:50 AMB [email or web address]) OP Gait Assessment Comments Gait Comments 1,604 ft in 6 minutes PT-OP-H Neuro Start: 06/21/21 07:47 Freq: Status: Active Protocol: Document 06/21/21 14:26 AMB (Rec: 06/21/21 14:32 AMB [email or web address]) Vital Signs Blood Pressure Sitting Blood Pressure (90/60-120/80 mmHg) 140/86 H Blood Pressure Source Manual Cuff,Right Upper Extremity Oxygen Pulse Oximetry at Rest (%) (95-100 %) 94 L Pulse Oximetry with Activity (%) (95-100 95 %) Oxygen Delivery Method Room Air PT-OP-M Strength Start: 06/21/21 07:47 Freq: Status: Active Protocol: Document 06/21/21 14:26 AMB (Rec: 06/21/21 14:32 AMB [email or web address]) Hand Child Nutrition Manager/Pinch Strength Hand Dominance Hand Dominance Right Hip Strength Hip Manual Muscle Testing Left Comments Grossly 5/5 in hip flex, knee flex/ext and ankle df. Good pinch and railway traction line worker strength bilaterally. PT-OP-Q Treatments Start: 06/21/21 07:47 Freq: Status: Active Protocol: Document 07/12/21 11:00 AMB (Rec: 07/12/21 12:54 AMB [email or web address]) Gym Equipment Shuttle Balance Red Clips Comments WBOS,NBOS, modified tandem stance fwd only, m/l with WBOS and throw and catch to PT Gait Training Gait Activity Stairs Description lobby stairs Distance/Duration 26 steps x2 Comments cues to place full foot on step vs just forefoot --- holding full water cup in R hand Walking Surface indoor Distance/Duration 6' Treatment Focus BIG armswings Neuro Re-Education Treatment Other Activities Sit<>Stand Details no UEs Reps/Duration 10x2 Comments 1: stride stance blue foam pads Sideways Rock & Reach Reps/Duration 10x Comments alternating blue mat Fwd Rock & Reach Reps/Duration 10x Comments blue mat Backward Step & Reach Reps/Duration 10x Comments alternating on blue mat Sideways Step & reach Reps/Duration 10x Comments alternating on blue mat Fwd Step & Reach Reps/Duration 10x Comments alternating on blue mat Side to Side Details added flicks Reps/Duration 10x Comments alternating sides Floor to Ceiling Details added flicks Reps/Duration 10x PT-OP-T Assessment and Plan Start: 06/21/21 16:12 Freq: Status: Active Protocol: Document 07/12/21 11:06 AMB (Rec: 07/12/21 11:47 AMB [id number]) Physical Therapy Assessment Goals Two Impairment Exercise program Short Term Goal (STG) Allyson will be independent with the standard LSVT BIG exercise program. STG Duration 2 weeks Assisted Goal (LTG) Allyson will be independent and consistent with a community based exercise program. LTG Duration 4 weeks One Impairment Gait Short Term Goal (STG) Allyson will improve his 6MWT to over 1,500ft to show appropriate gait speed for his age/gender. STG Duration MET Assisted Goal (LTG) Allyson will ambulate with good bilateral arm swing when walking quickly. LTG Duration 4 weeks Assessment Summary Assessment Re-emphasized HEP over the weekend. Pt with foot pain with balance board exercises. Was able to perform nuts and bolts board without issue. Physical Therapy Plan Frequency and Duration Frequency of Treatment 4x/Week Plan of Care Start Date 06/21/21 Plan of Care End Date 07/26/21 Next Visit Focus/Plan Next Note Type Treatment Note Next Visit Plan Continue Standard LSVT Big exercises, promote independence and consistency with exercises/balance/gait
--- NOTE | 2021-07-16 12:10 | PT.OTN ---
Current Diagnoses Parkinson's disease (07/16/21) Other abnormalities of gait and mobility (07/16/21) Physical Therapy Treatment Note PT-OP-A Visit Information Start: 06/21/21 07:47 Freq: Status: Active Protocol: Document 07/16/21 11:07 MA (Rec: 07/16/21 12:10 MA [id number]) Out-Patient Physical Therapy Visit Information Visit Information Visit Type Treatment Note Visit Start Time 11:00 Visit Stop Time 12:00 Total Visit Minutes 60 Visit Number 14 Number of SPRAY PAINTER Visits 1 PT-OP-B Current Condition Start: 06/21/21 07:47 Freq: Status: Active Protocol: Document 06/21/21 11:00 AMB (Rec: 06/21/21 14:26 AMB [email or web address]) Current Condition History of Current Condition Onset Date 3 years ago Current Complaints L tremor History of Current Condition Allyson noticed a feeling of a tremor starting in his left hand 3 years ago. Recently he has been diagnosed with Parkinson's. 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 He is anxious about his future with PD, but denies any difficulty with his ADLs currently denies falls, he does not really exercise, he goes on walks sometimes. He does have some chronic low back pain but denies that it affects him much. Personal Factors Other Personal Factors That May Effect [place], blood clot to L macula, hx Therapy/Recovery cardiac bypass, hypertension. PT-OP-C Subjective Start: 06/21/21 07:47 Freq: Status: Active Protocol: Document 07/16/21 11:07 JOSE (Rec: 07/16/21 12:10 JOSE [id number]) OP-PT Subjective Patient Comments Patient Comments I did exercises one time this weekend PT-OP-D Balance Start: 06/21/21 07:47 Freq: Status: Active Protocol: Document 06/21/21 14:26 AMB (Rec: 06/21/21 14:32 AMB [email or web address]) OP-PT Balance Assessment Standing Balance Standing Balance Comments single leg stance 10 seconds + Pickering Fall Scale Copyright Permission PT-OP-E Functional Tests Start: 06/21/21 07:47 Freq: Status: Active Protocol: Document 06/21/21 14:26 AMB (Rec: 06/21/21 14:32 AMB [email or web address]) Functional Tests 6 Minute Walk Test Distance 1384 Device Used none PT-OP-G Mobility & Gait Start: 06/21/21 07:47 Freq: Status: Active Protocol: Document 07/05/21 11:00 AMB (Rec: 07/05/21 12:50 AMB [email or web address]) OP Gait Assessment Comments Gait Comments 1,604 ft in 6 minutes PT-OP-H Neuro Start: 06/21/21 07:47 Freq: Status: Active Protocol: Document 06/21/21 14:26 AMB (Rec: 06/21/21 14:32 AMB [email or web address]) Vital Signs Blood Pressure Sitting Blood Pressure (90/60-120/80 mmHg) 140/86 H Blood Pressure Source Manual Cuff,Right Upper Extremity Oxygen Pulse Oximetry at Rest (%) (95-100 %) 94 L Pulse Oximetry with Activity (%) (95-100 95 %) Oxygen Delivery Method Room Air PT-OP-M Strength Start: 06/21/21 07:47 Freq: Status: Active Protocol: Document 06/21/21 14:26 AMB (Rec: 06/21/21 14:32 AMB [email or web address]) Hand Sleeve Setter/Pinch Strength Hand Dominance Hand Dominance Right Hip Strength Hip Manual Muscle Testing Left Comments Grossly 5/5 in hip flex, knee flex/ext and ankle df. Good pinch and locum tenens strength bilaterally. PT-OP-Q Treatments Start: 06/21/21 07:47 Freq: Status: Active Protocol: Document 07/16/21 11:07 MA (Rec: 07/16/21 12:10 MA [id number]) Gym Equipment Therapeutic Ball 65cm Exercise Details alternating marching then LAQ Ball Size/Color green 65 cm Body Position Sitting Reps/Duration 5' Gait Training Gait Activity Walking Surface outdoor-curbs, grass, gravel Distance/Duration 15' Treatment Focus BIG armswings Neuro Re-Education Treatment Balance Activities SLS Comments throwing ball while SLS on blue foam Tandem Stance Comments tandem stance on blue foam while throwing small kids ball Other Activities Sit<>Stand Details no UEs Reps/Duration 10x2 Comments rocker board under feet Sideways Rock & Reach Reps/Duration 10x Comments alternating blue mat Fwd Rock & Reach Reps/Duration 10x Comments blue mat Backward Step & Reach Reps/Duration 10x Comments alternating on blue mat Sideways Step & reach Reps/Duration 10x Comments alternating on blue mat Fwd Step & Reach Reps/Duration 10x Comments alternating on blue mat Side to Side Details added flicks Reps/Duration 10x Comments alternating sides Floor to Ceiling Details added flicks Reps/Duration 10x PT-OP-T Assessment and Plan Start: 06/21/21 16:12 Freq: Status: Active Protocol: Document 07/16/21 11:07 MA (Rec: 07/16/21 12:10 MA [id number]) Physical Therapy Assessment Goals Two Impairment Exercise program Short Term Goal (STG) Allyson will be independent with the standard LSVT BIG exercise program. STG Duration 2 weeks Senior Living Goal (LTG) Allyson will be independent and consistent with a community based exercise program. LTG Duration 4 weeks One Impairment Gait Short Term Goal (STG) Allyson will improve his 6MWT to over 1,500ft to show appropriate gait speed for his age/gender. STG Duration MET Senior Living Goal (LTG) Allyson will ambulate with good bilateral arm swing when walking quickly. LTG Duration 4 weeks Assessment Summary Assessment Allyson was able to lead 3/7 exercises without cues this session demonstrating poor carryover of BIG training. He was able to walk for 15 minutes on uneven terrain without c/o fatigue or SOB showing improved endurance from previous sessions where pt needed seated rest break after 6 minutes. Physical Therapy Plan Frequency and Duration Frequency of Treatment 4x/Week Plan of Care Start Date 06/21/21 Plan of Care End Date 07/26/21 Therapeutic Interventions Therapeutic Interventions Balance Training,Coordination Training,Gait Training,Home Exercise Program,Manual Therapy,Neuromuscular Re- education,Therapeutic Activities,Therapeutic Exercises Next Visit Focus/Plan Next Note Type Treatment Note Next Visit Plan Continue Standard LSVT Big exercises, promote independence and consistency with exercises/balance/gait
--- NOTE | 2021-07-17 15:35 | PT.OTN ---
Current Diagnoses Parkinson's disease (07/17/21) Other abnormalities of gait and mobility (07/17/21) Physical Therapy Treatment Note PT-OP-A Visit Information Start: 06/21/21 07:47 Freq: Status: Active Protocol: Document 07/17/21 10:58 AMB (Rec: 07/17/21 11:55 AMB [id number]) Out-Patient Physical Therapy Visit Information Visit Information Visit Type Treatment Note Visit Start Time 11:00 Visit Stop Time 11:55 Total Visit Minutes 55 Visit Number 15 PT-OP-B Current Condition Start: 06/21/21 07:47 Freq: Status: Active Protocol: Document 06/21/21 11:00 AMB (Rec: 06/21/21 14:26 AMB [email or web address]) Current Condition History of Current Condition Onset Date 3 years ago Current Complaints L tremor History of Current Condition Allyson noticed a feeling of a tremor starting in his left hand 3 years ago. Recently he has been diagnosed with Parkinson's. 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 He is anxious about his future with PD, but denies any difficulty with his ADLs currently denies falls, he does not really exercise, he goes on walks sometimes. He does have some chronic low back pain but denies that it affects him much. Personal Factors Other Personal Factors That May Effect [place], blood clot to L macula, hx Therapy/Recovery cardiac bypass, hypertension. PT-OP-C Subjective Start: 06/21/21 07:47 Freq: Status: Active Protocol: Document 07/17/21 11:00 AMB (Rec: 07/17/21 15:34 AMB [email or web address]) OP-PT Subjective Patient Comments Patient Comments Pt's birthday is today PT-OP-D Balance Start: 06/21/21 07:47 Freq: Status: Active Protocol: Document 06/21/21 14:26 AMB (Rec: 06/21/21 14:32 AMB [email or web address]) OP-PT Balance Assessment Standing Balance Standing Balance Comments single leg stance 10 seconds + Pickering Fall Scale Copyright Permission PT-OP-E Functional Tests Start: 06/21/21 07:47 Freq: Status: Active Protocol: Document 06/21/21 14:26 AMB (Rec: 06/21/21 14:32 AMB [email or web address]) Functional Tests 6 Minute Walk Test Distance 1384 Device Used none PT-OP-G Mobility & Gait Start: 06/21/21 07:47 Freq: Status: Active Protocol: Document 07/05/21 11:00 AMB (Rec: 07/05/21 12:50 AMB [email or web address]) OP Gait Assessment Comments Gait Comments 1,604 ft in 6 minutes PT-OP-H Neuro Start: 06/21/21 07:47 Freq: Status: Active Protocol: Document 06/21/21 14:26 AMB (Rec: 06/21/21 14:32 AMB [email or web address]) Vital Signs Blood Pressure Sitting Blood Pressure (90/60-120/80 mmHg) 140/86 H Blood Pressure Source Manual Cuff,Right Upper Extremity Oxygen Pulse Oximetry at Rest (%) (95-100 %) 94 L Pulse Oximetry with Activity (%) (95-100 95 %) Oxygen Delivery Method Room Air PT-OP-M Strength Start: 06/21/21 07:47 Freq: Status: Active Protocol: Document 06/21/21 14:26 AMB (Rec: 06/21/21 14:32 AMB [email or web address]) Hand Senior Games Technician/Pinch Strength Hand Dominance Hand Dominance Right Hip Strength Hip Manual Muscle Testing Left Comments Grossly 5/5 in hip flex, knee flex/ext and ankle df. Good pinch and head nurse strength bilaterally. PT-OP-Q Treatments Start: 06/21/21 07:47 Freq: Status: Active Protocol: Document 07/17/21 11:00 AMB (Rec: 07/17/21 15:34 AMB [email or web address]) Gait Training Gait Activity Walking Surface outdoor-curbs, grass, gravel, ramps- up and down Distance/Duration 15' Treatment Focus BIG armswings Neuro Re-Education Treatment Other Activities Sit<>Stand Details no UEs Reps/Duration 10x2 Comments low 12 bench Sideways Rock & Reach Reps/Duration 10x Comments alternating blue mat Fwd Rock & Reach Reps/Duration 10x Comments blue mat Backward Step & Reach Reps/Duration 10x Comments alternating on blue mat Sideways Step & reach Reps/Duration 10x Comments alternating on blue mat Fwd Step & Reach Reps/Duration 10x Comments alternating on blue mat Side to Side Details added flicks Reps/Duration 10x Comments alternating sides Floor to Ceiling Details added flicks Reps/Duration 10x PT-OP-T Assessment and Plan Start: 06/21/21 16:12 Freq: Status: Active Protocol: Document 07/17/21 11:00 AMB (Rec: 07/17/21 15:34 AMB [email or web address]) Physical Therapy Assessment Goals Two Impairment Exercise program Short Term Goal (STG) Allyson will be independent with the standard LSVT BIG exercise program. STG Duration 2 weeks Intermediate Goal (LTG) Allyson will be independent and consistent with a community based exercise program. LTG Duration 4 weeks One Impairment Gait Short Term Goal (STG) Allyson will improve his 6MWT to over 1,500ft to show appropriate gait speed for his age/gender. STG Duration MET Earthmoving Plant Operator Goal (LTG) Allyson will ambulate with good bilateral arm swing when walking quickly. LTG Duration 4 weeks Assessment Summary Assessment Continued to encourage Allyson with exercise in general. Would pt be interested in pickleball- trying to come up with ideas for increased activity with high amplitude if pt is not going to be compliant with LSVT BIG exercises in the [facility]p. Physical Therapy Plan Frequency and Duration Frequency of Treatment 4x/Week Plan of Care Start Date 06/21/21 Plan of Care End Date 07/26/21 Therapeutic Interventions Therapeutic Interventions Balance Training,Coordination Training,Gait Training,Home Exercise Program,Manual Therapy,Neuromuscular Re- education,Therapeutic Activities,Therapeutic Exercises Next Visit Focus/Plan Next Note Type Treatment Note Next Visit Plan Continue Standard LSVT Big exercises, promote independence and consistency with exercises/balance/gait
--- NOTE | 2021-07-23 12:02 | PT.OTN ---
Current Diagnoses Parkinson's disease (07/23/21) Other abnormalities of gait and mobility (07/23/21) Physical Therapy Treatment Note PT-OP-A Visit Information Start: 06/21/21 07:47 Freq: Status: Active Protocol: Document 07/23/21 11:07 MA (Rec: 07/23/21 12:02 MA [id number]) Out-Patient Physical Therapy Visit Information Visit Information Visit Type Treatment Note Visit Start Time 11:05 Visit Stop Time 12:00 Total Visit Minutes 40 Visit Number 55 Number of PATTERN SCRATCHER Visits 1 PT-OP-B Current Condition Start: 06/21/21 07:47 Freq: Status: Active Protocol: Document 06/21/21 11:00 AMB (Rec: 06/21/21 14:26 AMB [email or web address]) Current Condition History of Current Condition Onset Date 3 years ago Current Complaints L tremor History of Current Condition Allyson noticed a feeling of a tremor starting in his left hand 3 years ago. Recently he has been diagnosed with Parkinson's. 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 He is anxious about his future with PD, but denies any difficulty with his ADLs currently denies falls, he does not really exercise, he goes on walks sometimes. He does have some chronic low back pain but denies that it affects him much. Personal Factors Other Personal Factors That May Effect [place], blood clot to L macula, hx Therapy/Recovery cardiac bypass, hypertension. PT-OP-C Subjective Start: 06/21/21 07:47 Freq: Status: Active Protocol: Document 07/23/21 11:07 MA (Rec: 07/23/21 12:02 MA [id number]) OP-PT Subjective Patient Comments Patient Comments Pt has been doing his own combination of stretches and the exercises at home over the weekend. he went to a and it always reminds me what could happen. PT-OP-D Balance Start: 06/21/21 07:47 Freq: Status: Active Protocol: Document 06/21/21 14:26 AMB (Rec: 06/21/21 14:32 AMB [email or web address]) OP-PT Balance Assessment Standing Balance Standing Balance Comments single leg stance 10 seconds + Picekring Fall Scale Copyright Permission PT-OP-E Functional Tests Start: 06/21/21 07:47 Freq: Status: Active Protocol: Document 06/21/21 14:26 AMB (Rec: 06/21/21 14:32 AMB [email or web address]) Functional Tests 6 Minute Walk Test Distance 1384 Device Used none PT-OP-G Mobility & Gait Start: 06/21/21 07:47 Freq: Status: Active Protocol: Document 07/05/21 11:00 AMB (Rec: 07/05/21 12:50 AMB [email or web address]) OP Gait Assessment Comments Gait Comments 1,604 ft in 6 minutes PT-OP-H Neuro Start: 06/21/21 07:47 Freq: Status: Active Protocol: Document 06/21/21 14:26 AMB (Rec: 06/21/21 14:32 AMB [email or web address]) Vital Signs Blood Pressure Sitting Blood Pressure (90/60-120/80 mmHg) 140/86 H Blood Pressure Source Manual Cuff,Right Upper Extremity Oxygen Pulse Oximetry at Rest (%) (95-100 %) 94 L Pulse Oximetry with Activity (%) (95-100 95 %) Oxygen Delivery Method Room Air PT-OP-M Strength Start: 06/21/21 07:47 Freq: Status: Active Protocol: Document 06/21/21 14:26 AMB (Rec: 06/21/21 14:32 AMB [email or web address]) Hand Python Java Developer/Pinch Strength Hand Dominance Hand Dominance Right Hip Strength Hip Manual Muscle Testing Left Comments Grossly 5/5 in hip flex, knee flex/ext and ankle df. Good pinch and patient care provider strength bilaterally. PT-OP-Q Treatments Start: 06/21/21 07:47 Freq: Status: Active Protocol: Document 07/23/21 11:07 MA (Rec: 07/23/21 12:02 MA [id number]) Therapeutic Exercises Sitting Exercises Finger Opposition Sitting Exercise Name Starting single hand Side bilateral Comments challenged by doing bilaterally Standing Exercises Lunges Standing Exercise Name walking lunges Reps/Minutes 2x25 ft Gait Training Gait Activity Stairs Description lobby stairs Distance/Duration 26 steps x2 Comments cues to place full foot on step vs just forefoot --- holding full water cup in R hand Walking Surface indoor smooth Distance/Duration 8' Treatment Focus BIG armswings Neuro Re-Education Treatment Balance Activities SLS Comments throwing ball while SLS on rocker board Tandem Stance Comments tandem walking on line- fwds & backwards Other Activities Sit<>Stand Details no UEs Reps/Duration 10x2 Comments low 12 bench Sideways Rock & Reach Reps/Duration 10x Comments alternating blue mat Fwd Rock & Reach Reps/Duration 10x Comments blue mat Backward Step & Reach Reps/Duration 10x Comments alternating on blue mat Sideways Step & reach Reps/Duration 10x Comments alternating on blue mat Fwd Step & Reach Reps/Duration 10x Comments alternating on blue mat Side to Side Details added flicks Reps/Duration 10x Comments alternating sides Floor to Ceiling Details added flicks Reps/Duration 10x PT-OP-T Assessment and Plan Start: 06/21/21 16:12 Freq: Status: Active Protocol: Document 07/23/21 11:07 MA (Rec: 07/23/21 12:02 MA [id number]) Physical Therapy Assessment Goals Two Impairment Exercise program Short Term Goal (STG) Allyson will be independent with the standard LSVT BIG exercise program. STG Duration 2 weeks Senior Living Goal (LTG) Allyson will be independent and consistent with a community based exercise program. LTG Duration 4 weeks One Impairment Gait Short Term Goal (STG) Allyson will improve his 6MWT to over 1,500ft to show appropriate gait speed for his age/gender. STG Duration MET Test Lead Application Testing Goal (LTG) Allyson will ambulate with good bilateral arm swing when walking quickly. LTG Duration 4 weeks Assessment Summary Assessment Allyson struggled to lead exercises this session and could only remember 4/7 exercises. Provided additional print out of BIG program exercises for pt at end of session and recapped purpose of BIG program and importance of keeping up with exercise of any kind after d/c from therapy to mitigate PD symptoms in order to stay mobile, keep up with balance, and reduce fall risk. Physical Therapy Plan Frequency and Duration Frequency of Treatment 4x/Week Plan of Care Start Date 06/21/21 Plan of Care End Date 07/26/21 Therapeutic Interventions Therapeutic Interventions Balance Training,Coordination Training,Gait Training,Home Exercise Program,Manual Therapy,Neuromuscular Re- education,Therapeutic Activities,Therapeutic Exercises Next Visit Focus/Plan Next Note Type Discharge Summary Next Visit Plan Discuss progression of posture with PD and improtance of maintaining good posture. D/C from BIG program.
--- NOTE | 2021-07-24 12:00 | PT.OTN ---
Current Diagnoses Parkinson's disease (07/24/21) Other abnormalities of gait and mobility (07/24/21) Physical Therapy Treatment Note PT-OP-A Visit Information Start: 06/21/21 07:47 Freq: Status: Active Protocol: Document 07/24/21 11:00 AMB (Rec: 07/24/21 11:12 AMB [id number]) Out-Patient Physical Therapy Visit Information Visit Information Visit Type Treatment Note Visit Start Time 11:00 Visit Stop Time 12:00 Total Visit Minutes 60 Visit Number 17 PT-OP-B Current Condition Start: 06/21/21 07:47 Freq: Status: Active Protocol: Document 06/21/21 11:00 AMB (Rec: 06/21/21 14:26 AMB [email or web address]) Current Condition History of Current Condition Onset Date 3 years ago Current Complaints L tremor History of Current Condition Allyson noticed a feeling of a tremor starting in his left hand 3 years ago. Recently he has been diagnosed with Parkinson's. 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 He is anxious about his future with PD, but denies any difficulty with his ADLs currently denies falls, he does not really exercise, he goes on walks sometimes. He does have some chronic low back pain but denies that it affects him much. Personal Factors Other Personal Factors That May Effect PR, blood clot to L macula, hx Therapy/Recovery cardiac bypass, hypertension. PT-OP-C Subjective Start: 06/21/21 07:47 Freq: Status: Active Protocol: Document 07/24/21 11:00 AMB (Rec: 07/24/21 15:49 AMB [email or web address]) OP-PT Subjective Patient Comments Patient Comments Pt is ready for discharge PT-OP-D Balance Start: 06/21/21 07:47 Freq: Status: Active Protocol: Document 06/21/21 14:26 AMB (Rec: 06/21/21 14:32 AMB [email or web address]) OP-PT Balance Assessment Standing Balance Standing Balance Comments single leg stance 10 seconds + Pickering Fall Scale Copyright Permission PT-OP-E Functional Tests Start: 06/21/21 07:47 Freq: Status: Active Protocol: Document 06/21/21 14:26 AMB (Rec: 06/21/21 14:32 AMB [email or web address]) Functional Tests 6 Minute Walk Test Distance 1384 Device Used none PT-OP-G Mobility & Gait Start: 06/21/21 07:47 Freq: Status: Active Protocol: Document 07/24/21 11:41 AMB (Rec: 07/24/21 11:41 AMB [id number]) OP Gait Assessment Comments Gait Comments 1,505ft in 6MWT PT-OP-H Neuro Start: 06/21/21 07:47 Freq: Status: Active Protocol: Document 06/21/21 14:26 AMB (Rec: 06/21/21 14:32 AMB [email or web address]) Vital Signs Blood Pressure Sitting Blood Pressure (90/60-120/80 mmHg) 140/86 H Blood Pressure Source Manual Cuff,Right Upper Extremity Oxygen Pulse Oximetry at Rest (%) (95-100 %) 94 L Pulse Oximetry with Activity (%) (95-100 95 %) Oxygen Delivery Method Room Air PT-OP-M Strength Start: 06/21/21 07:47 Freq: Status: Active Protocol: Document 06/21/21 14:26 AMB (Rec: 06/21/21 14:32 AMB [email or web address]) Hand Academic Tutor/Pinch Strength Hand Dominance Hand Dominance Right Hip Strength Hip Manual Muscle Testing Left Comments Grossly 5/5 in hip flex, knee flex/ext and ankle df. Good pinch and burling and joining supervisor strength bilaterally. PT-OP-Q Treatments Start: 06/21/21 07:47 Freq: Status: Active Protocol: Document 07/24/21 11:00 AMB (Rec: 07/25/21 08:48 AMB [email or web address]) Gait Training Gait Activity Stairs Description indoor, smooth terrain 6 minutes Walking Surface outdoor-curbs, grass, gravel, ramps- up and down Distance/Duration 15' Treatment Focus BIG armswings Comments with dual task, conversation Neuro Re-Education Treatment Other Activities Sit<>Stand Details no UEs Reps/Duration 10x2 Comments low 12 bench Sideways Rock & Reach Reps/Duration 10x Comments alternating blue mat Fwd Rock & Reach Reps/Duration 10x Comments blue mat Backward Step & Reach Reps/Duration 10x Comments alternating on blue mat Sideways Step & reach Reps/Duration 10x Comments alternating on blue mat Fwd Step & Reach Reps/Duration 10x Comments alternating on blue mat Side to Side Details added flicks Reps/Duration 10x Comments alternating sides Floor to Ceiling Details added flicks Reps/Duration 10x PT-OP-T Assessment and Plan Start: 06/21/21 16:12 Freq: Status: Active Protocol: Document 07/24/21 11:00 AMB (Rec: 07/24/21 11:12 AMB [id number]) Physical Therapy Assessment Goals Two Impairment Exercise program Short Term Goal (STG) Allyson will be independent with the standard LSVT BIG exercise program. STG Duration PROGRESS MADE Survival Specialist Goal (LTG) Allyson will be independent and consistent with a community based exercise program. LTG Duration PROGRESS MADE One Impairment Gait Short Term Goal (STG) Allyson will improve his 6MWT to over 1,500ft to show appropriate gait speed for his age/gender. STG Duration MET Mcc Goal (LTG) Allyson will ambulate with good bilateral arm swing when walking quickly. LTG Duration MET Assessment Summary Assessment Allyson has shown some improvement with LSVT BIG, however he has struggled being consistent with his exercises, and needed guidance to perform his exercises even at his discharge appointment. He is very aware of the need to exercise with his medical diagnoses but has struggled with the will to start new habits. I have encouraged him in walking in the community and other movement strategies as well, but he has continued to struggle with consistency. He is aware that he can return to PT if needed in the future with a new referral. Physical Therapy Plan Discharge Physical Therapy Discharge Reasons Goals Met
== END 2021-10-09 09:40 ==
LOC: PHYS 11:00
PROVIDERS: PCP Family Medicine; Referring Provider Specialist; Visit Provider Specialist
DX: G20 Parkinson's disease (principal); R26.89 Other abnormalities of gait and mobility
CPT/HCPCS: 97110; 97112; 97116; 97161; 97535

== ENCOUNTER 2021-08-09 04:59 | Emergency (ER) | payer MEDICARE, SELFPAY ==
[2021-08-09] VITALS (118 sets, daily range): BP systolic 84–182; BP diastolic 49–103; PULSE 74–108; RESP 9–24; TEMP 36.9; O2SAT 94–100; BMI 32.3
--- NOTE | 2021-08-09 05:03 | DI.RAD.S_ITS ---
PROCEDURE: XR CHEST 1V INDICATIONS: Chest pain TECHNIQUE: One view of the chest was acquired. COMPARISON: [facility], , XR CHEST 2V, 08/21/2018, 18:45. [facility], , CHEST 1 VIEW, 09/07/2012, 20:19. FINDINGS: Surgical changes and devices: Post median sternotomy and CABG. Lungs and pleura: Lungs are clear. No pleural effusions or pneumothorax. Mediastinum: Mediastinal contours appear unchanged. Heart size is prominent. Bones and chest wall: No suspicious bony lesions. Overlying soft tissues appear unremarkable. IMPRESSION: No acute cardiopulmonary abnormality. Prominent heart size. Dictated by: Donny Newman M.D. on 08/09/2021 at 8:09 Approved by: Donny Newman M.D. on 08/09/2021 at 8:10
--- NOTE | 2021-08-09 05:12 | ED_ITS ---
HPI - Chest Pain General Chief Complaint: Chest Pain Stated Complaint: chest pain x1 hour Time Seen by Provider: 08/09/21 05:01 Source: patient Mode of arrival: Ambulatory Limitations: no limitations History of Present Illness HPI narrative: 71-year-old male. History of coronary artery disease and hypertension. Has had coronary artery bypass graft in the past. States that he was woken from sleep approximately 1 hour prior to arrival here in the emergency department with chest discomfort. He does describe it in the middle of his chest. Describes it as a heaviness or pressure sensation. Does not radiate anywhere. No shortness of breath. No nausea vomiting. No diaphoresis but. He states that is been so long since his last coronary event that he does not remember what it felt like. No fevers. No abdominal pain. No nausea vomiting. Has not tried anything for symptoms prior to arrival. Related Data Home Medications Medication Instructions Recorded Confirmed ASPIRIN (#ASPIRIN EC) 325 mg PO #0 05/05/12 06/22/20 Previous Rx's Medication Instructions Recorded rosuvastatin 20 mg tablet (Crestor) 20 mg PO DAILY #90 tab 08/14/20 propranolol 10 mg tablet 20 mg PO BID #180 tab 12/04/20 spironolactone 25 mg tablet See Rx Instructions .ROUTE 02/12/21 .COMPLEX #180 tablet amlodipine 5 mg tablet See Rx Instructions .ROUTE 06/04/21 .COMPLEX #180 tab losartan 100 mg tablet See Rx Instructions .ROUTE 07/16/21 .COMPLEX #180 tab Allergies Allergy/AdvReac Type Severity Reaction Status Date / Time lisinopril [LISINOPRIL] Allergy Mild COUGH Verified 12/04/20 13:13 metoprolol [METOPROLOL] Allergy Mild HYPOTENSIVE Verified 12/04/20 13:13 meperidine [From DEMEROL] Allergy Unknown Verified 12/04/20 13:13 Review of Systems Constitutional Constitutional: Denies fever(s) and Denies headache(s) ENT Ears, Nose, Mouth, and Throat: Denies headache(s) Cardiovascular Cardiovascular: Reports as per HPI and Reports system reviewed and no additional complaints, except as documented Respiratory Respiratory: Reports as per HPI and Reports system reviewed and no additional complaints, except as documented Gastrointestinal Gastrointestinal: Reports as per HPI and Reports system reviewed and no additional complaints, except as documented Musculoskeletal Musculoskeletal: Reports system reviewed and no additional complaints, except as documented Integumentary/Breasts Skin/Breast: Reports system reviewed and no additional complaints, except as documented Neurologic Neurologic: Denies headache(s) Hematologic/Lymphatic On Anticoagulants: No Patient History Medical History CAD (coronary artery disease) (2008) [place] (myocardial infarction) (2008) Retinal artery occlusion, 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) Surgical History (Updated 07/16/18 @ 12:06 by Rita Blackman) History of bilateral carpal tunnel release History of cardiac catheterization (01/26/09) History of colonoscopy (02/19/11) History of left-sided carotid endarterectomy (08/18/15) S/P CABG (coronary artery bypass graft) (01/2009) Family History (Updated 07/16/18 @ 11:58 by Rita Blackman) Father Heart disease Heart attack Mother Heart attack Sister Hypertension Social History Smoking Status: Never smoker Smoking Status: Never smoker alcohol intake frequency: 3 or more drinks per day Substance Use Type: does not use Exam Initial Vital Signs Initial Vital Signs: Vital Signs Temperature 98.4 F 08/09/21 05:08 Pulse Rate 85 08/09/21 05:08 Respiratory Rate 17 08/09/21 05:08 Blood Pressure 179/79 H 08/09/21 05:08 Pulse Oximetry 100 08/09/21 05:08 HENMT Head: normal to inspection Resp Effort & Inspection: normal respiratory effort Auscultation: clear to auscultation bilaterally Cardio Rate: regular rate Rhythm: regular rhythm GI Palpation: soft, No firm and No tender Skin General: no rashes or lesions noted Neuro General: patient alert, patient awake, patient oriented x3 and moves all extremities Extrem General: normal to inspection, capillary refill normal and No edema Psych Appearance: grossly normal and well kempt Course Orders Ordered: ED Orders 08/09/21 05:03 XR chest 1V Stat 08/09/21 05:04 EKG-12 Lead Stat 08/09/21 05:18 Complete Blood Count AUTO DIFF Stat Comprehensive Metabolic Panel Stat Lipase Stat Troponin & CK Cardiac Panel Stat 08/09/21 08:15 Troponin I Stat Sodium Chloride (Normal Saline 0.9%) 1,000 mls @ 500 mls/hr IV BOLUS ONE Stop: 08/09/21 07:35 Last Admin: 08/09/21 05:44 Dose: 500 mls/hr Documented by: JENIFER Nitroglycerin (Nitroglycerin 0.4 Mg Sl Tab) 0.4 mg SL [id number] PRN PRN Reason: Chest Pain Last Admin: 08/09/21 05:31 Dose: 0.4 mg Documented by: Admin: 08/09/21 05:22 Dose: 0.4 mg Documented by: JOSE Discontinued Medications Aspirin (Aspirin 81 Mg Chew Tab) 324 mg PO NOW ONE Stop: 08/09/21 05:16 Last Admin: 08/09/21 05:22 Dose: 324 mg Documented by: JOSE Vital Signs Vital signs: Vital Signs - 8 hr 08/09/21 05:08 08/09/21 05:22 08/09/21 05:31 Temperature 98.4 F Pulse Rate 85 81 82 Respiratory Rate 17 Blood Pressure 179/79 H 179/79 H 154/69 H Pulse Oximetry 100 08/09/21 05:34 08/09/21 05:36 08/09/21 05:41 Temperature Pulse Rate 90 90 88 Respiratory Rate 9 L 9 L 10 L Blood Pressure 84/49 L 123/73 Pulse Oximetry 96 96 96 08/09/21 05:45 Temperature Pulse Rate 83 Respiratory Rate 12 Blood Pressure 126/64 Pulse Oximetry 94 MDM - Chest Pain Lab Data Attestation: I reviewed the patient's lab results. Result diagrams: 08/09/21 05:18 08/09/21 05:18 Labs: Lab Results 08/09/21 08/09/21 Range/Units 05:18 05:18 WBC 6.7 (4.5-11.0) X10^3/uL RBC 5.16 (4.5-5.9) X10^6/uL Hgb 16.6 (13.5-17.5) g/dL Hct 48.2 (41-53) % MCV 93.4 (80-100) fL MCH 32.1 (26-34) PG MCHC 34.3 (30-36) % RDW 13.6 (11.6-14.8) % Plt Count 217 (150-400) X10^3/uL Neut % (Auto) 48.3 L (50-75) % Lymph % (Auto) 37.3 (25-40) % [place] % (Auto) 11.0 (3-14) % Eos % (Auto) 2.7 (2-4) % Baso % (Auto) 0.7 (0-2) % Neut # (Auto) 3200 (5294-6966) /uL Lymph # (Auto) 2500 (7993-0045) /uL [place] # (Auto) 700 (0-900) /uL Eos # (Auto) 200 (0-450) /uL Baso # (Auto) 0 (0-100) /uL Sodium 138 (137-145) mmol/L Potassium 4.1 (3.4-5.1) mmol/L Chloride 103 (98-107) mmol/L Carbon Dioxide 27 (22-32) mmol/L BUN 22 H (9-20) mg/dL Creatinine 1.02 (0.66-1.25) mg/dL Estimated GFR > 60.0 (>60) mL/min BUN/Creatinine Ratio 21.6 (6-22) Glucose 120 H (80-110) mg/dL Calcium 9.8 (8.4-10.2) mg/dL Total Bilirubin 0.6 (0.2-1.3) mg/dL AST 23 (17-59) IU/L ALT 23 (<50) IU/L Alkaline Phosphatase 66 (38-126) U/L Total Creatine Kinase 74 (55-170) U/L CK-MB (CK-2) TNP CK-MB (CK-2) Rel Index TNP Troponin I 0.015 (0.01-0.034) ng/mL Total Protein 7.9 (6.3-8.2) g/dL Albumin 4.6 (3.5-5.0) g/dL Globulin 3.3 (1.7-4.1) g/dL Albumin/Globulin Ratio 1.4 (1.0-2.8) Lipase 81 (23-300) U/L Imaging Data Chest x-ray: Radiologist's Impression: No acute cardiopulmonary abnormality identified ECG Data Attestation: I personally reviewed and interpreted this ECG as follows: Interpretation: Sinus rhythm Ventricular rate 87 First-degree AV block pain oral to 3 0 milliseconds Normal axis Normal QRS Normal QTC No ST T wave changes MDM Narrative Medical decision making narrative: Patient was given an aspirin. Was also given 2 nitroglycerin. He did have a drop in his blood pressure afterwards which responded to fluids. After the nitroglycerin his symptoms did seem to improve. EKG is unremarkable. Physical exam is unremarkable. Chest x-ray is unremarkable. Initial troponin is negative however given his history I do feel 2nd troponin is warranted to eval for elevation. Care turned over to Dr. Garcia at change of shift to follow up and disposition. Discharge Plan Departure Prescriptions: No Action ASPIRIN (#ASPIRIN EC) 325 mg PO Qty: 0 0RF rosuvastatin [Crestor] 20 mg tablet 20 mg PO DAILY Qty: 90 3RF spironolactone 25 mg tablet See Rx Instructions .ROUTE .COMPLEX Qty: 180 1RF Dose Instruction: Take two tablets by mouth daily Rx Instructions: Take two tablets by mouth daily amlodipine 5 mg tablet See Rx Instructions .ROUTE .COMPLEX Qty: 180 0RF Dose Instruction: Take two tablets by mouth daily Rx Instructions: Take two tablets by mouth daily losartan 100 mg tablet See Rx Instructions .ROUTE .COMPLEX Qty: 180 0RF Dose Instruction: TAKE ONE TABLET BY MOUTH TWICE DAILY NEEDED for hypertension ( dose increase ) Rx Instructions: TAKE ONE TABLET BY MOUTH TWICE DAILY NEEDED for hypertension ( dose increase ) propranolol 10 mg tablet 20 mg PO BID Qty: 180 3RF Referrals: Domenic Patterson MD [Primary Care Provider] -
[2021-08-09] MEDS: ASPIRIN 81 MG CHEW TAB 324 MG PO (05:22)
[2021-08-09] MEDS: NITROGLYCERIN 0.4 MG SL TAB SL ×2 (05:22→05:31)
[2021-08-09 05:30] LABS: Add Manual Diff / Slide Review NO; Basophils Absolute Auto 0 /uL (0-100); Basophils Percent Auto 0.7 % (0-2); Eosinophils Absolute Auto 200 /uL (0-450); Eosinophils Percent Auto 2.7 % (2-4); Hematocrit 48.2 % (41-53); Hemoglobin 16.6 g/dL (13.5-17.5); Lymphocytes Absolute Auto 2500 /uL (1100-4500); Lymphocytes Percent Auto 37.3 % (25-40); Mean Corpuscular HGB Conc 34.3 % (30-36); Mean Corpuscular Hemoglobin 32.1 PG (26-34); Mean Corpuscular Volume 93.4 fL (80-100); Monocytes Absolute Auto 700 /uL (0-900); Neutrophils Absolute Auto 3200 /uL (1500-7000); Neutrophils Percent Auto 48.3 % (50-75); Platelet Count 217 X10^3/uL (150-400); Red Blood Cell Count 5.16 X10^6/uL (4.5-5.9); Red Cell Distribution Width 13.6 % (11.6-14.8); White Blood Cell Count 6.7 X10^3/uL (4.5-11.0)
[2021-08-09 05:35] LABS: Alanine Aminotransferase 23 IU/L (<50); Albumin 4.6 g/dL (3.5-5.0); Albumin Globulin Ratio 1.4 (1.0-2.8); Alkaline Phosphatase 66 U/L (38-126); Aspartate Aminotransferase 23 IU/L (17-59); BUN Creatinine Ratio 21.6 (6-22); Bilirubin Total 0.6 mg/dL (0.2-1.3); Blood Urea Nitrogen 22 mg/dL (9-20); Calcium 9.8 mg/dL (8.4-10.2); Carbon Dioxide 27 mmol/L (22-32); Chloride 103 mmol/L (98-107); Creatine Kinase 74 U/L (55-170); Estimated Glomerular Filt Rate > 60.0 mL/min (>60); Globulin 3.3 g/dL (1.7-4.1); Glucose 120 mg/dL (80-110); HEMOLYSIS < 15 (0-50); Lipase 81 U/L (23-300); Potassium 4.1 mmol/L (3.4-5.1); Sodium 138 mmol/L (137-145); Total Protein 7.9 g/dL (6.3-8.2)
--- NOTE | 2021-08-09 05:42 | PC.NURSE ---
Pt received 2 doses of nitro, Pt reports pain improved but bp dropped to 80s systolic. pt denies any dizziness at this time.
[2021-08-09] MEDS: SODIUM CHLORIDE 0.9% 1,000 ML 500 ML IV (05:44)
[2021-08-09 05:47] LABS: Troponin I 0.015 ng/mL (0.01-0.034)
[2021-08-09 08:32] LABS: Troponin I 0.039 ng/mL (0.01-0.034)
--- NOTE | 2021-08-09 08:52 | DI.ECHO.S_ITS ---
[facility] +---------+ : : [address] : : : : [phone] : : : : Phone: [phone] Echocardiogram Report + + :Name: REJI SOTO Study Date: 08/09/2021 Height: 70 in : :[facility] ReadingLocation: Weight: 225 lb : : Gender: Male BSA: 2.2 m2 : :: 1950 Age: 71 yrs BP: 146/82 mmHg: :Reason For Study: Chest pain : :Ordering Physician: : :ESEMA Performed By: Lazaro rS : :Referring: TUCKER SANCHEZ : + + Interpretation Summary Left ventricular systolic function is moderately reduced with an estimated ejection fraction of 40 to 45% with moderate global hypokinesis that appears slightly more prominent in the inferoposterior segments, similar to the previous exam, although global contractility appears slightly less dynamic. There is borderline left ventricular enlargement with volumes that are likely slightly larger compared to the previous study. Diastolic function cannot be accurately assessed. The right ventricle appears normal in size with mild to moderately reduced systolic function and appears slightly less dynamic compared to the previous study. Right ventricular systolic pressure cannot be estimated but CVP is likely around 3 mmHg. Both atria are normal in size and both have decreased in size since the previous exam, particularly the right atrium. There is mild mitral regurgitation and mild aortic valve sclerosis without significant aortic stenosis but no other significant valvular abnormality. The ascending aorta is at the upper limits of normal at 3.6 cm but unchanged from the previous exam. Procedure: A two-dimensional transthoracic echocardiogram with color flow and Doppler was performed. Comparison is made with the echocardiogram of 03/17/2019. Images from the parasternal window were difficult to obtain and are suboptimal in quality. A contrast injection of Definity was performed to improve assessment of LV function. Overall fair image quality. The patient was somewhat uncooperative with the exam, declining parasternal scanning. The patient was in normal sinus rhythm during the exam. Left Ventricle: The left ventricle is borderline dilated. The estimated left ventricular end diastolic volume is 118 ml. There is normal left ventricular wall thickness. Left ventricular systolic function is moderately reduced. The ejection fraction is estimated to be 40-45%. There is a mild dyssynchronous contraction pattern with moderate global hypokinesis which appears slightly worse in the inferoposterior segments, similar to the previous exam although global contractility appears slightly less dynamic and left ventricular volumes are likely slightly larger. Diastolic function cannot be accurately assessed because of contradictory data. Right Ventricle: The right ventricle is normal size. Right ventricular systolic function is mild to moderately reduced. This is slightly less dynamic compared to the previous study. Atria: Both atria are normal in size. The left atrium has mildly decreased in size since the prior echo exam. Right atrial volume index is 10 mL/mA?. The right atrium has significantly decreased in size since the prior echo exam. There is no Doppler evidence for an interatrial shunt. Mitral Valve: The mitral valve leaflets appear mildly thickened, but open well. There is mild mitral regurgitation. Aortic Valve: The aortic valve is grossly normal. The aortic valve is mildly calcified. There is mildly reduced leaflet mobility. There is no hemodynamically significant valvular aortic stenosis. The peak aortic velocity is 1.9 m/sec. The peak aortic velocity on the previous exam was 1.9 m/sec. The aortic valve mean gradient is 9 mmHg. This is unchanged compared to the previous study. There is mild aortic regurgitation. This is unchanged compared to the previous study. Tricuspid Valve: The tricuspid valve is normal. There is a trace or physiologic amount of tricuspid regurgitation. This is less prominent compared to the previous study. Pulmonary artery pressures cannot be estimated because of the lack of a measurable TR jet velocity but the IVC suggests a CVP of around 3 mmHg. Pulmonic Valve: The pulmonic valve is not well seen, but is grossly normal. There is no other significant valvular heart disease. Great Vessels: The aortic root is normal size. The ascending aorta is at the upper limits of normal in size. This is unchanged compared to the previous study. The aortic arch could not be visualized. The IVC is of normal diameter and collapses greater than 50% with a sniff. This suggests a low right atrial pressure of 3 mm Hg. Pericardium/ Pleura There is no pericardial effusion. There is an anterior echo-free space consistent with a fat pad. There is no pleural effusion. MMode/2D Measurements & Calculations LVIDd: 5.1 cm LVOT diam: 2.0 cm LVIDs: 4.1 cm Ao root diam: 2.9 cm FS: 19.6 % asc Aorta Diam: 3.6 cm IVSd: 0.90 cm LVPWd: 0.80 cm LV dockery. diameter/BSA (cm/m^2): 2.3 LV sys. diameter/BSA (cm/m^2): 1.9 LA A2 area: 15.8 cm2 RA long axis: 5.7 cm LA A4 area: 19.4 cm2 IVC diam: 2.1 cm LA length (vol): 4.3 cm LA vol: 60.4 ml LA vol index: 27.5 ml/m2 LVLs ap4: 6.6 cm LVLd ap2: 7.7 cm LVLs ap2: 6.4 cm TAPSE_phl: 1.1 cm Doppler Measurements & Calculations Ao V2 max: 189.0 cm/sec LVOT Max Sacha: 83.3 cm/sec Ao V2 mean: 146.0 cm/sec LV V1 max P.8 mmHg Ao max P.0 mmHg LV V1 VTI: 18.0 cm Ao mean P.0 mmHg VERÓNICA(I,D): 1.3 cm2 Ao V2 VTI: 42.2 cm VERÓNICA(V,D): 1.4 cm2 sev ratio: 0.43 VERÓNICA indexed to BSA (cm^2/m^2): 0.61 SV(LVOT): 56.5 ml AV VR_phl: 0.44 Reading Physician:12:26 PM
--- NOTE | 2021-08-09 09:02 | ED_ITS ---
HPI - Chest Pain General Chief Complaint: Chest Pain Stated Complaint: chest pain x1 hour Time Seen by Provider: 08/09/21 05:01 Source: patient Mode of arrival: Ambulatory Limitations: no limitations Related Data Home Medications Medication Instructions Recorded Confirmed ASPIRIN (#ASPIRIN EC) 325 mg PO #0 05/05/12 06/22/20 Previous Rx's Medication Instructions Recorded rosuvastatin 20 mg tablet (Crestor) 20 mg PO DAILY #90 tab 08/14/20 propranolol 10 mg tablet 20 mg PO BID #180 tab 12/04/20 spironolactone 25 mg tablet See Rx Instructions .ROUTE 02/12/21 .COMPLEX #180 tablet amlodipine 5 mg tablet See Rx Instructions .ROUTE 06/04/21 .COMPLEX #180 tab losartan 100 mg tablet See Rx Instructions .ROUTE 07/16/21 .COMPLEX #180 tab Allergies Allergy/AdvReac Type Severity Reaction Status Date / Time lisinopril [LISINOPRIL] Allergy Mild COUGH Verified 12/04/20 13:13 metoprolol [METOPROLOL] Allergy Mild HYPOTENSIVE Verified 12/04/20 13:13 meperidine [From DEMEROL] Allergy Unknown Verified 12/04/20 13:13 Review of Systems Constitutional Constitutional: Denies headache(s) ENT Ears, Nose, Mouth, and Throat: Denies headache(s) Neurologic Neurologic: Denies headache(s) Patient History Medical History CAD (coronary artery disease) (2008) AR (myocardial infarction) (2008) Retinal artery occlusion, 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) Surgical History (Updated 07/16/18 @ 12:06 by Rita Blackman) History of bilateral carpal tunnel release History of cardiac catheterization (01/26/09) History of colonoscopy (02/19/11) History of left-sided carotid endarterectomy (08/18/15) S/P CABG (coronary artery bypass graft) (01/2009) Family History (Updated 07/16/18 @ 11:58 by Rita Blackman) Father Heart disease Heart attack Mother Heart attack Sister Hypertension Social History Smoking Status: Never smoker Smoking Status: Never smoker alcohol intake frequency: 3 or more drinks per day Substance Use Type: does not use Exam Initial Vital Signs Initial Vital Signs: Vital Signs Temperature 98.4 F 08/09/21 05:08 Pulse Rate 85 08/09/21 05:08 Respiratory Rate 17 08/09/21 05:08 Blood Pressure 179/79 H 08/09/21 05:08 Pulse Oximetry 100 08/09/21 05:08 Course Orders Ordered: ED Orders 08/09/21 14:38 PTT [Partial Thromboplastin Time] Stat Troponin & CK Cardiac Panel Stat 08/09/21 21:30 PTT [Partial Thromboplastin Time] Stat 08/09/21 22:30 Troponin & CK Cardiac Panel Stat Carbidopa/Levodopa (Carbidopa-Levodopa 25/100 Tablet) 2 each PO TID [facility] Carvedilol (Carvedilol 12.5 Mg Tablet) 12.5 mg PO BID [facility] Last Admin: 08/09/21 10:25 Dose: 12.5 mg Documented by: YECENIA Clopidogrel Bisulfate (Clopidogrel 75 Mg Tablet) 75 mg PO DAILY [facility] Last Admin: 08/09/21 09:24 Dose: 75 mg Documented by: YECENIA Heparin Sodium/Dextrose (Heparin Drip) 25,000 unit in 500 mls @ 24.494 mls/hr IV CONT [facility]; Protocol Last Titration: 08/09/21 16:30 Dose: 10.53 units/kg/hr, 21.5 mls/hr Documented by: Titration: 08/09/21 15:30 Dose: 0 units/kg/hr, 0 mls/hr Documented by: Admin: 08/09/21 09:24 Dose: 12 units/kg/hr, 24.494 mls/hr Documented by: YECENIA Nitroglycerin (Nitroglycerin) 50 mg in 250 mls @ 1.5 mls/hr IV TITRATE [facility]; Protocol Last Admin: 08/09/21 09:25 Dose: 5 mcg/min, 1.5 mls/hr Documented by: YECENIA Morphine Sulfate (Morphine 2 Mg/Ml Inj) 2 mg IV Q5MIN PRN PRN Reason: Chest Pain Naloxone HCl (Naloxone 0.4 Mg/Ml Vial) 0.2 mg IV Q2MIN PRN PRN Reason: Opiate Reversal Nitroglycerin (Nitroglycerin 0.4 Mg Sl Tab) 0.4 mg SL [id number] PRN PRN Reason: Chest Pain Last Admin: 08/09/21 05:31 Dose: 0.4 mg Documented by: Admin: 08/09/21 05:22 Dose: 0.4 mg Documented by: JOSE Discontinued Medications Aspirin (Aspirin 81 Mg Chew Tab) 324 mg PO NOW ONE Stop: 08/09/21 05:16 Last Admin: 08/09/21 05:22 Dose: 324 mg Documented by: JOSE Atorvastatin Calcium (Atorvastatin 20 Mg Tablet) 80 mg PO NOW ONE Stop: 08/09/21 09:04 Last Admin: 08/09/21 10:25 Dose: 80 mg Documented by: YECENIA Heparin Sodium (Porcine) (Heparin 5,000 Unit/Ml Vial) 5,000 unit IV NOW ONE Stop: 08/09/21 08:51 Last Admin: 08/09/21 09:23 Dose: 5,000 unit Documented by: YECENIA Sodium Chloride (Normal Saline 0.9%) 1,000 mls @ 500 mls/hr IV BOLUS ONE Stop: 08/09/21 07:35 Last Infusion: 08/09/21 07:37 Dose: 0 mls/hr Documented by: Admin: 08/09/21 05:44 Dose: 500 mls/hr Documented by: JENIFER Spironolactone (Spironolactone 25 Mg Tablet) 25 mg PO NOW ONE Stop: 08/09/21 09:03 Last Admin: 08/09/21 10:25 Dose: 25 mg Documented by: YECENIA Vital Signs Vital signs: Vital Signs - 8 hr 08/09/21 11:20 08/09/21 11:25 08/09/21 11:30 Pulse Rate 82 85 79 Respiratory Rate 14 16 16 Blood Pressure 131/83 160/103 H 135/87 Pulse Oximetry 97 96 97 08/09/21 11:40 08/09/21 11:45 08/09/21 12:00 Pulse Rate 86 85 86 Respiratory Rate 18 12 16 Blood Pressure 137/85 130/82 Pulse Oximetry 99 97 99 08/09/21 12:15 08/09/21 12:20 08/09/21 12:30 Pulse Rate 85 86 88 Respiratory Rate 17 12 14 Blood Pressure 118/74 Pulse Oximetry 96 98 96 08/09/21 12:40 08/09/21 12:45 08/09/21 13:00 Pulse Rate 90 87 86 Respiratory Rate 15 13 14 Blood Pressure 121/68 122/72 Pulse Oximetry 94 96 97 08/09/21 13:15 08/09/21 13:20 08/09/21 13:30 Pulse Rate 87 84 85 Respiratory Rate 18 10 L 14 Blood Pressure 152/79 H Pulse Oximetry 95 97 96 08/09/21 13:41 08/09/21 13:45 08/09/21 14:00 Pulse Rate 88 88 85 Respiratory Rate 18 16 13 Blood Pressure 132/56 L 122/65 Pulse Oximetry 96 97 97 08/09/21 14:15 08/09/21 14:20 08/09/21 14:30 Pulse Rate 79 81 78 Respiratory Rate 19 20 14 Blood Pressure 118/90 Pulse Oximetry 98 98 98 08/09/21 14:41 08/09/21 14:45 08/09/21 15:00 Pulse Rate 82 79 Respiratory Rate 16 16 Blood Pressure 158/93 H 145/93 H Pulse Oximetry 99 98 99 08/09/21 15:15 08/09/21 15:21 08/09/21 15:30 Pulse Rate 79 80 78 Respiratory Rate 15 15 14 Blood Pressure 172/95 H Pulse Oximetry 97 97 08/09/21 15:40 08/09/21 15:45 08/09/21 16:00 Pulse Rate 92 H 89 108 H Respiratory Rate 16 19 23 Blood Pressure 172/97 H Pulse Oximetry 96 08/09/21 16:15 08/09/21 16:20 08/09/21 16:30 Pulse Rate 88 87 91 H Respiratory Rate 14 13 23 Blood Pressure 122/71 Pulse Oximetry 96 08/09/21 16:32 08/09/21 16:40 08/09/21 16:45 Pulse Rate 84 90 87 Respiratory Rate 17 15 14 Blood Pressure 164/98 H 159/79 H Pulse Oximetry 99 97 96 08/09/21 17:00 08/09/21 17:01 08/09/21 17:15 Pulse Rate 83 82 80 Respiratory Rate 12 16 18 Blood Pressure 108/60 Pulse Oximetry 94 95 94 08/09/21 17:20 08/09/21 17:30 08/09/21 17:40 Pulse Rate 81 80 80 Respiratory Rate 14 14 13 Blood Pressure 107/57 L 107/70 Pulse Oximetry 97 94 97 08/09/21 17:45 08/09/21 18:00 08/09/21 18:15 Pulse Rate 79 81 80 Respiratory Rate 12 13 13 Blood Pressure 113/97 H Pulse Oximetry 96 96 95 08/09/21 18:20 08/09/21 18:30 08/09/21 18:41 Pulse Rate 81 88 98 H Respiratory Rate 13 20 21 Blood Pressure 118/67 131/90 Pulse Oximetry 96 97 08/09/21 18:45 08/09/21 19:00 08/09/21 19:04 Pulse Rate 95 H 78 74 Respiratory Rate 22 16 15 Blood Pressure 124/70 Pulse Oximetry 98 99 MDM - Chest Pain Lab Data Result diagrams: 08/09/21 05:18 08/09/21 05:18 Labs: Lab Results 08/09/21 08/09/21 08/09/21 Range/Units 05:18 05:18 08:00 WBC 6.7 (4.5-11.0) X10^3/uL RBC 5.16 (4.5-5.9) X10^6/uL Hgb 16.6 (13.5-17.5) g/dL Hct 48.2 (41-53) % MCV 93.4 (80-100) fL MCH 32.1 (26-34) PG MCHC 34.3 (30-36) % RDW 13.6 (11.6-14.8) % Plt Count 217 (150-400) X10^3/uL Neut % (Auto) 48.3 L (50-75) % Lymph % (Auto) 37.3 (25-40) % [place] % (Auto) 11.0 (3-14) % Eos % (Auto) 2.7 (2-4) % Baso % (Auto) 0.7 (0-2) % Neut # (Auto) 3200 (6673-8134) /uL Lymph # (Auto) 2500 (3353-8665) /uL [place] # (Auto) 700 (0-900) /uL Eos # (Auto) 200 (0-450) /uL Baso # (Auto) 0 (0-100) /uL PT (10.1-12.7) SECONDS INR (0.9-1.3) APTT (26.4-36.2) SECONDS Sodium 138 (137-145) mmol/L Potassium 4.1 (3.4-5.1) mmol/L Chloride 103 (98-107) mmol/L Carbon Dioxide 27 (22-32) mmol/L BUN 22 H (9-20) mg/dL Creatinine 1.02 (0.66-1.25) mg/dL Estimated GFR > 60.0 (>60) mL/min BUN/Creatinine Ratio 21.6 (6-22) Glucose 120 H (80-110) mg/dL Calcium 9.8 (8.4-10.2) mg/dL Total Bilirubin 0.6 (0.2-1.3) mg/dL AST 23 (17-59) IU/L ALT 23 (<50) IU/L Alkaline Phosphatase 66 (38-126) U/L Total Creatine Kinase 74 (55-170) U/L CK-MB (CK-2) TNP CK-MB (CK-2) Rel Index TNP Troponin I 0.015 0.039 H (0.01-0.034) ng/mL Total Protein 7.9 (6.3-8.2) g/dL Albumin 4.6 (3.5-5.0) g/dL Globulin 3.3 (1.7-4.1) g/dL Albumin/Globulin Ratio 1.4 (1.0-2.8) Lipase 81 (23-300) U/L SARS-CoV-2 (PCR) (Negative) 08/09/21 08/09/21 08/09/21 Range/Units 08:59 09:15 14:38 WBC (4.5-11.0) X10^3/uL RBC (4.5-5.9) X10^6/uL Hgb (13.5-17.5) g/dL Hct (41-53) % MCV (80-100) fL MCH (26-34) PG MCHC (30-36) % RDW (11.6-14.8) % Plt Count (150-400) X10^3/uL Neut % (Auto) (50-75) % Lymph % (Auto) (25-40) % [place] % (Auto) (3-14) % Eos % (Auto) (2-4) % Baso % (Auto) (0-2) % Neut # (Auto) (4660-5560) /uL Lymph # (Auto) (2783-4039) /uL [place] # (Auto) (0-900) /uL Eos # (Auto) (0-450) /uL Baso # (Auto) (0-100) /uL PT 12.2 (10.1-12.7) SECONDS INR 1.1 (0.9-1.3) APTT 30 118 H* D (26.4-36.2) SECONDS Sodium (137-145) mmol/L Potassium (3.4-5.1) mmol/L Chloride (98-107) mmol/L Carbon Dioxide (22-32) mmol/L BUN (9-20) mg/dL Creatinine (0.66-1.25) mg/dL Estimated GFR (>60) mL/min BUN/Creatinine Ratio (6-22) Glucose (80-110) mg/dL Calcium (8.4-10.2) mg/dL Total Bilirubin (0.2-1.3) mg/dL AST (17-59) IU/L ALT (<50) IU/L Alkaline Phosphatase (38-126) U/L Total Creatine Kinase (55-170) U/L CK-MB (CK-2) CK-MB (CK-2) Rel Index Troponin I (0.01-0.034) ng/mL Total Protein (6.3-8.2) g/dL Albumin (3.5-5.0) g/dL Globulin (1.7-4.1) g/dL Albumin/Globulin Ratio (1.0-2.8) Lipase (23-300) U/L SARS-CoV-2 (PCR) Negative (Negative) 08/09/21 Range/Units 14:38 WBC (4.5-11.0) X10^3/uL RBC (4.5-5.9) X10^6/uL Hgb (13.5-17.5) g/dL Hct (41-53) % MCV (80-100) fL MCH (26-34) PG MCHC (30-36) % RDW (11.6-14.8) % Plt Count (150-400) X10^3/uL Neut % (Auto) (50-75) % Lymph % (Auto) (25-40) % [place] % (Auto) (3-14) % Eos % (Auto) (2-4) % Baso % (Auto) (0-2) % Neut # (Auto) (3359-7710) /uL Lymph # (Auto) (1239-2492) /uL [place] # (Auto) (0-900) /uL Eos # (Auto) (0-450) /uL Baso # (Auto) (0-100) /uL PT (10.1-12.7) SECONDS INR (0.9-1.3) APTT (26.4-36.2) SECONDS Sodium (137-145) mmol/L Potassium (3.4-5.1) mmol/L Chloride (98-107) mmol/L Carbon Dioxide (22-32) mmol/L BUN (9-20) mg/dL Creatinine (0.66-1.25) mg/dL Estimated GFR (>60) mL/min BUN/Creatinine Ratio (6-22) Glucose (80-110) mg/dL Calcium (8.4-10.2) mg/dL Total Bilirubin (0.2-1.3) mg/dL AST (17-59) IU/L ALT (<50) IU/L Alkaline Phosphatase (38-126) U/L Total Creatine Kinase 77 (55-170) U/L CK-MB (CK-2) TNP CK-MB (CK-2) Rel Index TNP Troponin I 0.239 H* (0.01-0.034) ng/mL Total Protein (6.3-8.2) g/dL Albumin (3.5-5.0) g/dL Globulin (1.7-4.1) g/dL Albumin/Globulin Ratio (1.0-2.8) Lipase (23-300) U/L SARS-CoV-2 (PCR) (Negative) Discharge Plan Departure Prescriptions: No Action ASPIRIN (#ASPIRIN EC) 325 mg PO Qty: 0 0RF rosuvastatin [Crestor] 20 mg tablet 20 mg PO DAILY Qty: 90 3RF spironolactone 25 mg tablet See Rx Instructions .ROUTE .COMPLEX Qty: 180 1RF Dose Instruction: Take two tablets by mouth daily Rx Instructions: Take two tablets by mouth daily amlodipine 5 mg tablet See Rx Instructions .ROUTE .COMPLEX Qty: 180 0RF Dose Instruction: Take two tablets by mouth daily Rx Instructions: Take two tablets by mouth daily losartan 100 mg tablet See Rx Instructions .ROUTE .COMPLEX Qty: 180 0RF Dose Instruction: TAKE ONE TABLET BY MOUTH TWICE DAILY NEEDED for hypertension ( dose increase ) Rx Instructions: TAKE ONE TABLET BY MOUTH TWICE DAILY NEEDED for hypertension ( dose increase ) propranolol 10 mg tablet 20 mg PO BID Qty: 180 3RF Referrals: Domenic Patterson MD [Primary Care Provider] -
[2021-08-09] MEDS: HEPARIN 5,000 UNIT/ML VIAL 5000 UNIT IV (09:23)
[2021-08-09] MEDS: HEPARIN DRIP 25,000 UNIT/500 ML IV.SOLN 24.494 UNIT IV (09:24)
[2021-08-09] MEDS: CLOPIDOGREL 75 MG TABLET PO (09:24)
[2021-08-09] MEDS: NITROGLYCERIN 50 MG/250 ML INFUS..BTL IV (09:25)
[2021-08-09 09:33] LABS: INR 1.1 (0.9-1.3); Prothrombin Time 12.2 SECONDS (10.1-12.7)
[2021-08-09 09:35] LABS: PTT Partial Thromboplastin Tim 30 SECONDS (26.4-36.2)
[2021-08-09] MEDS: ATORVASTATIN 20 MG TABLET 80 MG PO (10:25)
[2021-08-09] MEDS: carvediloL 12.5 MG TABLET PO ×2 (10:25→20:59)
[2021-08-09] MEDS: SPIRONOLACTONE 25 MG TABLET PO (10:25)
[2021-08-09 10:50] LABS: COVID19 - ADMIT (NP swab/PCR) Negative (Negative)
[2021-08-09 14:57] LABS: Creatine Kinase 77 U/L (55-170)
[2021-08-09 15:18] LABS: Troponin I 0.239 ng/mL (0.01-0.034)
[2021-08-09 15:27] LABS: PTT Partial Thromboplastin Tim 118 SECONDS (26.4-36.2)
--- NOTE | 2021-08-09 15:36 | PC.NURSE ---
ptt 118 Dr Garcia aware, Heparin Protocol calls for Heparin stopped x 1 hr, turned off at 1530 verified with pharmacy. when restarting infusion at 1630 rate will be decreased to 21.5 ml/hr. repeat ptt ordered for 0
--- NOTE | 2021-08-09 19:37 | PC.NURSE ---
Went in to meet pt. Pt appears comfortable, resting in bed. IVs are intact and patent, VS WNL, denies CP. Speaking clearly, A&OX4. No needs made known at this time.
[2021-08-09] MEDS: CARBIDOPA-LEVODOPA 25/100 TABLET 2 EACH PO (20:59)
[2021-08-09 21:35] LABS: PTT Partial Thromboplastin Tim 49 SECONDS (26.4-36.2)
[2021-08-09 22:14] LABS: Creatine Kinase 91 U/L (55-170)
--- NOTE | 2021-08-09 22:25 | PC.NURSE ---
Pt reports anxiety. States that he never has anxiety but does not like the fact that he has been shut up in a room all day. Pt states he also became slightly clammy. No CP or SOB. Pt is pacing the room. I opened the door to his room so he could see something other then the inside of his room, VS remain normal, trop pending. Dr. Calle informed and states he will go see the pt
[2021-08-09 22:30] LABS: Troponin I 0.606 ng/mL (0.01-0.034)
[2021-08-10] VITALS (110 sets, daily range): BP systolic 97–153; BP diastolic 53–116; PULSE 70–97; RESP 11–28; O2SAT 92–99
--- NOTE | 2021-08-10 00:36 | PC.NURSE ---
MD wishes to pause nitro drip and observe his CP. Nitro drip paused. Instructed pt to report ANY changes in CP, pt agreed.
[2021-08-10 03:48] LABS: PTT Partial Thromboplastin Tim 59 SECONDS (26.4-36.2)
[2021-08-10 04:02] LABS: Troponin I 0.572 ng/mL (0.01-0.034)
[2021-08-10] MEDS: HEPARIN DRIP 25,000 UNIT/500 ML IV.SOLN 22.5 UNIT IV (06:15)
[2021-08-10] MEDS: carvediloL 12.5 MG TABLET PO ×2 (09:33→20:31)
[2021-08-10] MEDS: CARBIDOPA-LEVODOPA 25/100 TABLET 2 EACH PO ×3 (09:34→20:31)
[2021-08-10] MEDS: CLOPIDOGREL 75 MG TABLET PO (09:34)
[2021-08-10 10:05] LABS: Add Manual Diff / Slide Review NO; Basophils Absolute Auto 0 /uL (0-100); Basophils Percent Auto 0.8 % (0-2); Eosinophils Absolute Auto 100 /uL (0-450); Eosinophils Percent Auto 2.1 % (2-4); Lymphocytes Absolute Auto 1400 /uL (1100-4500); Lymphocytes Percent Auto 29.4 % (25-40); Mean Corpuscular Hemoglobin 31.9 PG (26-34); Mean Corpuscular Volume 93.8 fL (80-100); Monocytes Absolute Auto 500 /uL (0-900); Monocytes Percent Auto 10.5 % (3-14); Neutrophils Absolute Auto 2800 /uL (1500-7000); Neutrophils Percent Auto 57.2 % (50-75); Platelet Count 217 X10^3/uL (150-400); Red Blood Cell Count 4.69 X10^6/uL (4.5-5.9); Red Cell Distribution Width 13.9 % (11.6-14.8); White Blood Cell Count 4.8 X10^3/uL (4.5-11.0)
[2021-08-10 10:13] LABS: PTT Partial Thromboplastin Tim 60 SECONDS (26.4-36.2)
[2021-08-10 10:15] LABS: Alanine Aminotransferase 14 IU/L (<50); Albumin 4.1 g/dL (3.5-5.0); Albumin Globulin Ratio 1.4 (1.0-2.8); Alkaline Phosphatase 47 U/L (38-126); Aspartate Aminotransferase 26 IU/L (17-59); Bilirubin Total 0.7 mg/dL (0.2-1.3); Blood Urea Nitrogen 13 mg/dL (9-20); Calcium 9.3 mg/dL (8.4-10.2); Carbon Dioxide 29 mmol/L (22-32); Chloride 103 mmol/L (98-107); Estimated Glomerular Filt Rate > 60.0 mL/min (>60); Glucose 129 mg/dL (80-110); HEMOLYSIS < 15 (0-50); Potassium 4.3 mmol/L (3.4-5.1); Sodium 136 mmol/L (137-145); Total Protein 7.1 g/dL (6.3-8.2)
[2021-08-10 15:55] LABS: PTT Partial Thromboplastin Tim 41 SECONDS (26.4-36.2)
[2021-08-10] MEDS: LOSARTAN 50 MG TABLET 100 MG PO (20:32)
[2021-08-11] VITALS (65 sets, daily range): BP systolic 107–121; BP diastolic 59–72; PULSE 70–95; RESP 10–41; O2SAT 93–95
[2021-08-11 05:23] LABS: PTT Partial Thromboplastin Tim 48 SECONDS (26.4-36.2)
[2021-08-11] MEDS: HEPARIN DRIP 25,000 UNIT/500 ML IV.SOLN 23.5 UNIT IV (05:57)
--- NOTE | 2021-08-11 06:37 | PC.NURSE ---
per protocol ,heparin gtt was increased 50 units per hour at approx.0445 for a 0425 ptt of 48.it is now infusing at 23.5 ml per hour or 1175 units per hour.He is still pain free.
[2021-08-11 08:30] LABS: Add Manual Diff / Slide Review NO; Basophils Absolute Auto 100 /uL (0-100); Basophils Percent Auto 1.2 % (0-2); Eosinophils Absolute Auto 100 /uL (0-450); Eosinophils Percent Auto 1.8 % (2-4); Hematocrit 43.6 % (41-53); Lymphocytes Absolute Auto 1900 /uL (1100-4500); Lymphocytes Percent Auto 32.1 % (25-40); Mean Corpuscular HGB Conc 34.5 % (30-36); Mean Corpuscular Hemoglobin 32.3 PG (26-34); Mean Corpuscular Volume 93.6 fL (80-100); Monocytes Absolute Auto 600 /uL (0-900); Monocytes Percent Auto 10.8 % (3-14); Neutrophils Absolute Auto 3200 /uL (1500-7000); Neutrophils Percent Auto 54.1 % (50-75); Platelet Count 227 X10^3/uL (150-400); Red Blood Cell Count 4.65 X10^6/uL (4.5-5.9); Red Cell Distribution Width 13.6 % (11.6-14.8)
[2021-08-11 08:42] LABS: Alanine Aminotransferase 16 IU/L (<50); Albumin 4.3 g/dL (3.5-5.0); Albumin Globulin Ratio 1.3 (1.0-2.8); Alkaline Phosphatase 35 U/L (38-126); Aspartate Aminotransferase 40 IU/L (17-59); BUN Creatinine Ratio 18.5 (6-22); Bilirubin Total 1.2 mg/dL (0.2-1.3); Blood Urea Nitrogen 17 mg/dL (9-20); Calcium 9.2 mg/dL (8.4-10.2); Carbon Dioxide 26 mmol/L (22-32); Chloride 102 mmol/L (98-107); Creatine Kinase 73 U/L (55-170); Estimated Glomerular Filt Rate > 60.0 mL/min (>60); Globulin 3.2 g/dL (1.7-4.1); Glucose 120 mg/dL (80-110); Potassium 4.7 mmol/L (3.4-5.1); Sodium 135 mmol/L (137-145); Total Protein 7.5 g/dL (6.3-8.2)
[2021-08-11 08:47] LABS: HEMOLYSIS 181 (0-50)
[2021-08-11 08:54] LABS: Troponin I 0.228 ng/mL (0.01-0.034)
[2021-08-11] MEDS: AMLODIPINE 5 MG TABLET 10 MG PO (09:54)
[2021-08-11] MEDS: LOSARTAN 50 MG TABLET 100 MG PO (09:55)
[2021-08-11] MEDS: carvediloL 12.5 MG TABLET PO (09:55)
[2021-08-11] MEDS: SPIRONOLACTONE 25 MG TABLET 50 MG PO (09:56)
[2021-08-11] MEDS: CARBIDOPA-LEVODOPA 25/100 TABLET 2 EACH PO ×2 (09:58→16:00)
[2021-08-11] MEDS: CLOPIDOGREL 75 MG TABLET 300 MG PO (09:59)
[2021-08-11 10:51] LABS: PTT Partial Thromboplastin Tim 53 SECONDS (26.4-36.2)
--- NOTE | 2021-08-11 10:55 | PC.NURSE ---
Daughter Yenifer at bedside
--- NOTE | 2021-08-11 15:55 | PC.NURSE ---
Reviewed echo w/ patient at his request. Questions answered, encouraged to ask for more information if needed. Pt verbalized frustration at lack of bed to transfer to. Discussed circumstances w/ verbalized understanding.
--- NOTE | 2021-08-11 18:03 | PC.NURSE ---
Heparin drip continued on with [facility].
== END 2021-08-11 18:16 | disposition short-term general hospital (02) ==
PROVIDERS: Emergency Medicine; Emergency Provider Emergency Medicine; PCP Family Medicine
DX: I21.4 Non-ST elevation (NSTEMI) myocardial infarction (principal); I25.10 Atherosclerotic heart disease of native coronary artery without angina pectoris; Z20.822 Contact with and (suspected) exposure to COVID-19
CPT/HCPCS: 36415; 71045; 80053; 82550; 83690; 84484; 85025; 85610; 85730; 87635; 93005; 93306; 96365; 96366; 99285; C9803; J1644; Q9957

== ENCOUNTER → 2022-01-08 09:43 | Outpatient (CLI) | payer MEDICARE, SELFPAY ==
[2022-01-08 11:55] LABS: Cholesterol 141 mg/dL (140-199); HDL Cholesterol 38 mg/dL (40-60); LDL Cholesterol Calculated 79 mg/dL (<100); Triglycerides 121 mg/dL (35-150)
== END ==
PROVIDERS: PCP Family Medicine; Referring Provider Internal Medicine Cardiovascular Disease; Visit Provider Internal Medicine Cardiovascular Disease
DX: I25.10 Atherosclerotic heart disease of native coronary artery without angina pectoris (principal)
CPT/HCPCS: 36415; 80061

== ENCOUNTER 2022-01-10 10:15 | Outpatient (RCR) | payer MEDICARE, SELFPAY | END 2022-01-10 12:15 | LOC: CAR 10:15 | PROVIDERS: PCP Family Medicine; Referring Provider Internal Medicine Cardiovascular Disease; Visit Provider Internal Medicine Cardiovascular Disease | DX: Z95.5 Presence of coronary angioplasty implant and graft (principal) | CPT/HCPCS: 93798 ==

== ENCOUNTER → 2022-01-25 10:58 | Outpatient (CLI) | payer MEDICARE, SELFPAY ==
--- NOTE | 2022-01-25 11:01 | DI.RAD.S_ITS ---
PROCEDURE: XR KNEE RT 3V INDICATIONS: bilateral knee pain TECHNIQUE: 3 views of the knee were acquired. COMPARISON: [facility], , XR KNEE RT 3V, 10/15/2019, 9:52. FINDINGS: Bones: No fractures or dislocations. No suspicious bony lesions. There is a small patellar enthesophyte. Soft tissues: No joint effusion. No suspicious soft tissue calcifications. IMPRESSION: Small patellar enthesophyte. No acute radiographic findings. Dictated by: Bettina Larsen M.D. on 01/25/2022 at 12:00 Approved by: Bettina Larsen M.D. on 01/25/2022 at 12:00
--- NOTE | 2022-01-25 11:01 | DI.RAD.S_ITS ---
PROCEDURE: XR KNEE LT 3V INDICATIONS: bilateral knee pain TECHNIQUE: 3 views of the knee were acquired. COMPARISON: [facility], CR, XR KNEE RT 3V, 10/15/2019, 9:52. FINDINGS: Bones: There is mild old medial femorotibial compartment narrowing and small tricompartmental osteophytes. Soft tissues: No joint effusion. No suspicious soft tissue calcifications. IMPRESSION: Mild degenerative change of the left knee. Dictated by: Bettina Larsen M.D. on 01/25/2022 at 14:03 Approved by: Bettina Larsen M.D. on 01/25/2022 at 14:05
== END ==
PROVIDERS: PCP Family Medicine; Referring Provider Family Medicine; Visit Provider Family Medicine
DX: M76.891 Other specified enthesopathies of right lower limb, excluding foot (principal); M25.561 Pain in right knee; M25.562 Pain in left knee
CPT/HCPCS: 73562

== ENCOUNTER → 2022-06-20 09:34 | Outpatient (CLI) | payer MEDICARE, SELFPAY ==
[2022-06-20 11:01] LABS: Alanine Aminotransferase 10 IU/L (<50); Albumin 4.4 g/dL (3.5-5.0); Albumin Globulin Ratio 1.5 (1.0-2.8); Alkaline Phosphatase 49 U/L (38-126); Aspartate Aminotransferase 21 IU/L (17-59); BUN Creatinine Ratio 21.5 (6-22); Bilirubin Total 0.6 mg/dL (0.2-1.3); Blood Urea Nitrogen 20 mg/dL (9-20); Calcium 9.3 mg/dL (8.4-10.2); Carbon Dioxide 24 mmol/L (22-32); Chloride 101 mmol/L (98-107); Estimated Glomerular Filt Rate > 60 mL/min (>60); Glucose 104 mg/dL (80-110); HEMOLYSIS < 15 (0-50); Potassium 4.6 mmol/L (3.4-5.1); Sodium 138 mmol/L (137-145); Total Protein 7.4 g/dL (6.3-8.2)
[2022-06-20 11:08] LABS: Hemoglobin A1C% w Est Avg Glu 6.1 % (4.0-6.0)
[2022-06-20 11:30] LABS: Prostate Specific Antigen Scrn 0.644 ng/mL (0.1-4.0)
[2022-06-21 11:49] LABS: Cholesterol 98 mg/dL (140-199); HDL Cholesterol 28 mg/dL (40-60); LDL Cholesterol Calculated 56 mg/dL (<100); Triglycerides 69 mg/dL (35-150)
== END ==
PROVIDERS: PCP Family Medicine; Referring Provider Family Medicine; Visit Provider Family Medicine
DX: R73.9 Hyperglycemia, unspecified (principal); Z12.5 Encounter for screening for malignant neoplasm of prostate; E78.2 Mixed hyperlipidemia; I10 Essential (primary) hypertension; I25.10 Atherosclerotic heart disease of native coronary artery without angina pectoris
CPT/HCPCS: 36415; 80053; 80061; 83036; G0103

== ENCOUNTER → 2022-12-20 11:14 | Outpatient (CLI) | payer MEDICARE, SELFPAY ==
[2022-12-20 12:22] LABS: Alanine Aminotransferase 9 IU/L (<50); Albumin 4.1 g/dL (3.5-5.0); Albumin Globulin Ratio 1.2 (1.0-2.8); Alkaline Phosphatase 48 U/L (38-126); Aspartate Aminotransferase 20 IU/L (17-59); Bilirubin Total 0.7 mg/dL (0.2-1.3); Blood Urea Nitrogen 17 mg/dL (9-20); Calcium 9.1 mg/dL (8.4-10.2); Carbon Dioxide 25 mmol/L (22-32); Chloride 106 mmol/L (98-107); Cholesterol 118 mg/dL (140-199); Estimated Glomerular Filt Rate > 60 mL/min (>60); Globulin 3.4 g/dL (1.7-4.1); Glucose 120 mg/dL (80-110); HDL Cholesterol 34 mg/dL (40-60); HEMOLYSIS < 15 (0-50); LDL Cholesterol Calculated 67 mg/dL (<100); Potassium 4.6 mmol/L (3.4-5.1); Sodium 139 mmol/L (137-145); Total Protein 7.5 g/dL (6.3-8.2); Triglycerides 83 mg/dL (35-150)
== END ==
PROVIDERS: PCP Family Medicine; Referring Provider Internal Medicine Cardiovascular Disease; Visit Provider Internal Medicine Cardiovascular Disease
DX: I25.10 Atherosclerotic heart disease of native coronary artery without angina pectoris (principal)
CPT/HCPCS: 36415; 80053; 80061

== ENCOUNTER → 2023-04-11 10:26 | Outpatient (CLI) | payer MEDICARE, SELFPAY ==
[2023-04-11 11:00] LABS: Add Manual Diff / Slide Review NO; Basophils Absolute Auto 0 /uL (0-100); Basophils Percent Auto 0.9 % (0-2); Eosinophils Absolute Auto 200 /uL (0-450); Eosinophils Percent Auto 3.1 % (2-4); Hematocrit 45.9 % (41-53); Hemoglobin 15.6 g/dL (13.5-17.5); Lymphocytes Absolute Auto 1500 /uL (1100-4500); Lymphocytes Percent Auto 28.4 % (25-40); Mean Corpuscular Hemoglobin 31.8 PG (26-34); Mean Corpuscular Volume 93.3 fL (80-100); Monocytes Absolute Auto 600 /uL (0-900); Neutrophils Absolute Auto 3000 /uL (1500-7000); Neutrophils Percent Auto 56.6 % (50-75); Platelet Count 203 X10^3/uL (150-400); Red Blood Cell Count 4.92 X10^6/uL (4.5-5.9); Red Cell Distribution Width 13.3 % (11.6-14.8); White Blood Cell Count 5.4 X10^3/uL (4.5-11.0)
[2023-04-11 11:19] LABS: Alanine Aminotransferase 8 IU/L (<50); Albumin 4.3 g/dL (3.5-5.0); Albumin Globulin Ratio 1.3 (1.0-2.8); Alkaline Phosphatase 53 U/L (38-126); Aspartate Aminotransferase 20 IU/L (17-59); BUN Creatinine Ratio 22.2 (6-22); Bilirubin Total 0.8 mg/dL (0.2-1.3); Blood Urea Nitrogen 20 mg/dL (9-20); Calcium 9.5 mg/dL (8.4-10.2); Carbon Dioxide 27 mmol/L (22-32); Chloride 103 mmol/L (98-107); Cholesterol 112 mg/dL (140-199); Estimated Glomerular Filt Rate > 60 mL/min (>60); Globulin 3.2 g/dL (1.7-4.1); Glucose 114 mg/dL (80-110); HDL Cholesterol 34 mg/dL (40-60); HEMOLYSIS < 15 (0-50); LDL Cholesterol Calculated 56 mg/dL (<100); Potassium 4.5 mmol/L (3.4-5.1); Sodium 137 mmol/L (137-145); Total Protein 7.5 g/dL (6.3-8.2); Triglycerides 109 mg/dL (35-150)
[2023-04-11 11:50] LABS: Prostate Specific Antigen Scrn 0.517 ng/mL (0.1-4.0)
[2023-04-11 11:51] LABS: TSH w/ Reflex to FT4 2.49 uIU/mL (0.47-4.68)
[2023-04-11 12:34] LABS: Creatinine Urine Random 111.6 mg/dL
[2023-04-11 12:39] LABS: Microalbumi Creatinin Ratio Ur 40.3 ug/mg CR (<30); Microalbumin Urine Random 4.5 mg/dL (0-1.6)
[2023-04-12 05:18] LABS: x Labcorp Estim. Avg Glu (eAG) 137 mg/dL (.); x Labcorp Hemoglobin A1c 6.4 % (4.8-5.6)
[2023-04-18 07:57] LABS: Percent Free Testosterone 3.55 % (1.50-4.20); Testosterone Total 180.4 ng/dL (264.0-916.0)
== END ==
PROVIDERS: PCP Family Medicine; Referring Provider Family Medicine; Visit Provider Family Medicine
DX: Z12.5 Encounter for screening for malignant neoplasm of prostate; E78.2 Mixed hyperlipidemia; G20 Parkinson's disease; I10 Essential (primary) hypertension; I25.10 Atherosclerotic heart disease of native coronary artery without angina pectoris; Z00.00 Encounter for general adult medical examination without abnormal findings; Z95.1 Presence of aortocoronary bypass graft; R68.82 Decreased libido
CPT/HCPCS: 80053; 80061; 82043; 82570; 83036; 84402; 84403; 84443; 85025; G0103

== ENCOUNTER → 2023-04-25 10:35 | Outpatient (CLI) | payer MEDICARE, SELFPAY ==
--- NOTE | 2023-04-25 10:37 | DI.US.S_ITS ---
PROCEDURE: US CAROTID DOPPLER BI INDICATIONS: BILATERAL CAROTID STENOSIS TECHNIQUE: Color and pulse Doppler interrogation was performed of both carotid systems, with image documentation and velocity measurements. COMPARISON: [facility], , US CAROTID DOPPLER BI, 03/17/2019, 14:56. FINDINGS: Stenosis calculations are based on SRU (Society of Radiologists in Ultrasound) criteria. Please note, the patient was not cooperative for this study and the study was terminated before the left-side could be interrogated. Additionally, blood pressures were not obtained. Right side: Brachial blood pressure: Not obtained Common carotid artery peak systolic velocity: 65 cm/sec. Internal carotid artery peak systolic velocity: 96 cm/sec. Internal carotid artery end diastolic velocity: 21 cm/sec. External carotid artery peak systolic velocity: 72 cm/sec. ICA/CCA peak systolic ratio: 1.5 . Jimenez scale imaging description: Mild atheromatous plaque is present at the carotid bifurcation. Percent internal carotid artery stenosis: Less than 50% stenosis. Vertebral artery: Flow direction is antegrade. Left side: Not interrogated due to lack of cooperation from the patient. IMPRESSION: 1. Limited study. 2. Less than 50% stenosis of the right internal carotid artery. Dictated by: Bettina Larsen M.D. on 04/25/2023 at 13:04 Approved by: Bettina Larsen M.D. on 04/25/2023 at 13:05
== END ==
PROVIDERS: PCP Family Medicine; Referring Provider Family Medicine; Visit Provider Family Medicine
DX: I65.21 Occlusion and stenosis of right carotid artery (principal); Z98.890 Other specified postprocedural states
CPT/HCPCS: 93880

== ENCOUNTER → 2023-11-17 13:48 | Outpatient (CLI) | payer MEDICARE, SELFPAY ==
--- NOTE | 2023-11-17 13:51 | DI.RAD.S_ITS ---
PROCEDURE: XR KNEE RT 3V INDICATIONS: BILATERAL KNEE PAIN TECHNIQUE: 3 views of the knee were acquired. COMPARISON: [facility], CR, XR KNEE LT 3V, 01/25/2022, 10:56. [facility], CR, XR KNEE LT 3V, 10/15/2019, 9:52. FINDINGS: Bones: No fractures or dislocations. No suspicious bony lesions. Tricompartmental joint space narrowing with formed osteophytes on the patella and osteophytic lipping of the tibial plateau. Soft tissues: Small joint effusion. No suspicious soft tissue calcifications. IMPRESSION: Mild tricompartmental osteoarthritis. Dictated by: Kyle Ramirez M.D. on 11/17/2023 at 16:30 Approved by: Kyle Ramirez M.D. on 11/17/2023 at 16:30
--- NOTE | 2023-11-17 13:51 | DI.RAD.S_ITS ---
PROCEDURE: XR KNEE LT 3V INDICATIONS: BILATERAL KNEE PAIN TECHNIQUE: 3 views of the knee were acquired. COMPARISON: [facility], , XR KNEE LT 3V, 01/25/2022, 10:56. [facility], , XR KNEE LT 3V, 10/15/2019, 9:52. FINDINGS: Bones: No fractures or dislocations. No suspicious bony lesions. Tricompartmental joint space narrowing with osteophytic lipping of the tibial plateau and formed osteophytes on the patella. Soft tissues: Small joint effusion. No suspicious soft tissue calcifications. IMPRESSION: Mild tricompartmental osteoarthritis. Dictated by: Kyle Ramirez M.D. on 11/17/2023 at 16:30 Approved by: Kyle Ramirez M.D. on 11/17/2023 at 16:31
== END ==
LOC: RAD 13:51
PROVIDERS: Family Provider Family Medicine; PCP Family Medicine; Referring Provider Anesthesiology; Visit Provider Anesthesiology
DX: M17.0 Bilateral primary osteoarthritis of knee (principal); M25.561 Pain in right knee; M25.562 Pain in left knee; G89.29 Other chronic pain
CPT/HCPCS: 73562

== ENCOUNTER 2023-11-27 11:15 | Outpatient (RCR) | payer MEDICARE, SELFPAY ==
--- NOTE | 2023-09-24 17:32 | PT.OIE ---
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) Tremor Past Surgical History (Last Reviewed 09/07/22 @ 15:07 by Keke Quijano PA-C) History of bilateral carpal tunnel release History of cardiac catheterization (01/26/09) History of colonoscopy (02/19/11) History of left-sided carotid endarterectomy (08/18/15) S/P CABG (coronary artery bypass graft) (01/2009) Visit Care Team Role Provider Type Domenic Patterson MD Attending Provider Physician Family Provider Primary Care Provider Referring Provider Specialty: [facility] Address: [address] [place] [address] Email: [email or web address] Physical Therapy Initial Evaluation PT-OP-A Visit Information Start: 09/11/23 08:54 Freq: Status: Active Protocol: Document 09/24/23 11:06 [facility] (Rec: 09/24/23 12:11 [facility] [id number]) Out-Patient Physical Therapy Visit Information Visit Information Visit Type Initial Evaluation Visit Note 09/17 Visit Start Time 11:17 Visit Stop Time 12:08 Total Visit Minutes 51 Visit Number 1 Number of TRUCK BODY BUILDER Visits 0 PT-OP-B Current Condition Start: 09/11/23 08:54 Freq: Status: Active Protocol: Document 09/24/23 11:06 [facility] (Rec: 09/24/23 12:11 [facility] [id number]) Current Condition History of Current Condition Current Complaints B knee pain, LBP History of Current Condition Pt his history of back pain chronically and recent Parkinson's diagnosis and heart attack history. Pt reports he has B knee pain and the last couple of months they wake him up at night w/ sharp pain. When he gets up at night to go to the bathroom, he makes sure he holds onto something to see how the knees work before starting walking. Knees started to give pain in the past year. 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 Has to grab HR going down stairs now d/t worry about one of those sharp pains . LBP mostly lumbar and into SI for 10-15 year history w/no specific injury. worsened over the years. about 5 years ago, he was rebuilding a house and came out w/garbage can and fell down 2 steps and had to call a amy of his and had to use a 2x4 to use as a cane . He came here and was told he tore his meniscus. DOn't know what knee it was but it went away. He has doen this twice. Treatment Goals Patient/Caregiver Goals Be able to go down hills and stairs more comfortably, be able to get up at night trusting knees PT-OP-C Subjective Start: 09/11/23 08:54 Freq: Status: Active Protocol: Document 09/24/23 11:06 [facility] (Rec: 09/24/23 12:11 [facility] [id number]) Patient Questionnaires Lower Extremity Functional Scale LEFS Score 41/80 OP-PT Pain Assessment Location back Pain Location Details lumbar and SI pain Description Aching Frequency Constant Pain Aggravating Factors Standing,Stair Climbing Other Pain Aggravating Factors hills Pain Alleviating Factors Heat,Massage B knee pain Pain Location Details ant knee (entire ant) Description Sharp Frequency Frequent Pain Aggravating Factors Standing,Stair Climbing Other Pain Aggravating Factors at night,on knees, hills, getting up after sit extended Pain Alleviating Factors Heat Other Pain Alleviating Factors rest PT-OP-D Balance Start: 09/11/23 08:54 Freq: Status: Active Protocol: Document 09/24/23 11:06 [facility] (Rec: 09/24/23 12:11 [facility] [id number]) Balance Tests Single Limb Standing Single Limb- Right >30 sec lat w/lat lean Single Limb- Left >30sec w/lat lean PT-OP-F Manual Assessment Start: 09/11/23 08:54 Freq: Status: Active Protocol: Document 09/24/23 11:06 [facility] (Rec: 09/24/23 12:11 [facility] [id number]) Manual Assessments Soft Tissue Assessment Soft Tissue Mobility Assessment med jt line tendernes Joint Mobility Assessment Joint Mobility Assessment IR of B femurs and R tibia; all IR w/knee flex; L iliac crest higher, equal greater trochanters PT-OP-G Mobility & Gait Start: 09/11/23 08:54 Freq: Status: Active Protocol: Document 09/24/23 11:06 [facility] (Rec: 09/24/23 12:11 [facility] [id number]) OP Gait Assessment Comments Gait Comments lat lean w/wt acceptance on each LE, no RUE arm swing, L min arm swing, limited spine mobility PT-OP-J Posture/Palpation/Skin Start: 09/11/23 08:54 Freq: Status: Active Protocol: Document 09/24/23 11:06 [facility] (Rec: 09/24/23 12:11 [facility] [id number]) Posture Evaluation [facility] Postural Classification System Lumbar Protective Mechanism Left AP 1 Lumbar Protective Mechanism Right AP 1 Lumbar Protective Mechanism Left PA 1 Lumbar Protective Mechanism Right PA 0 PT-OP-K Range of Motion Start: 09/11/23 08:54 Freq: Status: Active Protocol: Document 09/24/23 11:06 [facility] (Rec: 09/24/23 12:11 [facility] [id number]) Knee Goniometric Range of Motion Knee Right Flexion Active (degrees) 120 Extension Active (degrees) 2 Left Flexion Active (degrees) 116 Extension Active (degrees) 5 Comments discomfort w/flex PT-OP-L Special Tests Start: 09/11/23 08:54 Freq: Status: Active Protocol: Document 09/24/23 11:06 [facility] (Rec: 09/24/23 12:11 [facility] [id number]) Special Tests Knee Special Tests SLR Comments tightness in HS B (about equal tightness) Dulce Maria Test Comments pos L Thessaly Test 5 Degrees Comments Pos L Other Special Tests Special Tests 140/92 BP PT-OP-M Strength Start: 09/11/23 08:54 Freq: Status: Active Protocol: Document 09/24/23 11:06 [facility] (Rec: 09/24/23 12:11 [facility] [id number]) Hip Strength Hip Manual Muscle Testing Right Flexion (L2) 3+ Fair+ Extension (S1) 3+ Fair+ Abduction 4- Good- Adduction 4 Good External Rotation 3 Fair Internal Rotation 3+ Fair+ Left Flexion (L2) 3+ Fair+ Extension (S1) 4- Good- Abduction 4 Good Adduction 3+ Fair+ External Rotation 3 Fair Internal Rotation 3+ Fair+ Knee Strength Knee Manual Muscle Testing Right Flexion (S2) 4- Good- Extension (L3) 5 Normal Left Flexion (S2) 4 Good Ankle/Foot Strength Ankle and Foot Manual Muscle Testing Right Dorsiflexion (L4) 5 Normal Plantarflexion (S1) 5 Normal Left Dorsiflexion (L4) 5 Normal Plantarflexion (S1) 5 Normal Comments 20 heel raises B PT-OP-Q Treatments Start: 09/11/23 08:54 Freq: Status: Active Protocol: Document 09/24/23 11:06 [facility] (Rec: 09/24/23 12:11 [facility] [id number]) Self-Care/Home Management Treatment Education Other Education 15 min: discussion how PT can help w/proper ROM and gliding of joint and strength and mobility around joint to dec painalong w/improving mechanics of movement despite OA; discussed typical conservative options: synvisc, steroid injections, stem cells (pt asks about this) and if conservative management fails then recommendation would be seeing and ortho who may consider TKA if degeneration is significant enough and pt is an appropriate surgical candidate PT-OP-T Assessment and Plan Start: 09/11/23 08:54 Freq: Status: Active Protocol: Document 09/24/23 11:06 [facility] (Rec: 09/24/23 12:11 [facility] [id number]) Physical Therapy Assessment Rehab Potential Rehabilitation Potential Good Evaluation Complexity Number of Personal Factors/Comorbidities 3 or More Number of Body Systems Impaired 4 or More Clinical Presentation at Evaluation Evolving Impairments Impairments Activity Tolerance,Balance, Functional Activities, Functional Mobility,Gait,Pain, Posture,ROM,Soft Tissue Mobility,Strength Goals stability Senior Care Goal (LTG) Pt will reports being able to get up at night and feel like he can trust his knees when walking. LTG Duration 12/17/23 activities Short Term Goal (STG) Pt will be able to go up/down stairs reciprocally w/o rail w /o knee pain or LBP STG Duration 11/16/23 Photo Cartographer Goal (LTG) Pt will report being able to walk on any terrain w/o inc knee pain or LBP greater than /10. LTG Duration 12/17/23 strength Short Term Goal (STG) pt will improve LPM to at least 2/5 in all planes and be indep w/HEP STG Duration 11/07/23 Photo Cartographer Goal (LTG) Pt will score at least 3/5 on LPM and at least 4+/5 on B LE MMT to show improved strength and stability to allow greater ease with functional activties. LTG Duration 12/17/23 LEFS Impairment 41/80 Short Term Goal (STG) Pt will improve LEFS score to at least 50/80 to show improved functional ability. STG Duration 11/07/23 Senior Care Goal (LTG) Pt will improve LEFS score to at least 50/80 to show improved functional ability. LTG Duration 12/17/23 Assessment Summary Assessment Pt presents w/chronic LBP and knee pain with knee pain worsening significantly within the last couple months to the point that he has been woken d/t knee pain. He has hx of a couple injuries to knees but unsure which ones he was told he tore his meniscus on. Pt was positive for meniscus testing on L knee so likely L knee has meniscus tears, and OA B. He has overall good ROM but pain w/L ROM , but B LE weakness along w/dec core stability and stiffness of spien noted w/mobility. 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 He would benefit from skilled PT to address his deficits in order to maintain his activity and be able to do typical daily activities w/o inc pain. Physical Therapy Plan Frequency and Duration Frequency of Treatment 2x/Week Duration of treatment (weeks) 12 Plan of Care Start Date 09/24/23 Plan of Care End Date 12/17/23 Therapeutic Interventions Therapeutic Interventions Balance Training,Gait Training ,Home Exercise Program,Joint Mobilizations,Manual Therapy, Neuromuscular Re-education, Orthotic/Prosthetic Management ,Patient/Caregiver Education, Self-Care/Home Management,Soft Tissue Mobilization,Taping, Therapeutic Activities, Therapeutic Exercises Modalities Cold Pack/Ice Massage,Electric Stimulation,Hot Packs, Infrared Therapy,Iontophoresis ,Traction- Mechanical, Ultrasound Next Visit Focus/Plan Next Note Type Treatment Note Next Visit Plan HEP: sit to stands w/band, s/l clamshells, supine bridges, DL isometric for core/hip flexors, sidesteps w/band manual: address hip mobility w /manual and work on thigh mobility Edu: sleep position
--- NOTE | 2023-09-24 17:32 | PT.OPPOC ---
Physical, Occupational & Speech Therapy At [facility] Current Diagnoses Other chronic pain (09/24/23) Pain in right knee (09/24/23) Pain in left knee (09/24/23) Difficulty in walking, not elsewhere classified (09/24/23) Abnormal posture (09/24/23) Weakness (09/24/23) Visit Care Team Role Provider Type Domenic Patterson MD Attending Provider Physician Family Provider Primary Care Provider Referring Provider Specialty: Family Practice Address: [address] [place] [address] Email: [email or web address] Plan Of Care PT-OP-T Assessment and Plan Start: 09/11/23 08:54 Freq: Status: Active Protocol: Document 09/24/23 11:06 [facility] (Rec: 09/24/23 12:11 [facility] [id number]) Physical Therapy Assessment Rehab Potential Rehabilitation Potential Good Evaluation Complexity Number of Personal Factors/Comorbidities 3 or More Number of Body Systems Impaired 4 or More Clinical Presentation at Evaluation Evolving Impairments Impairments Activity Tolerance,Balance, Functional Activities, Functional Mobility,Gait,Pain, Posture,ROM,Soft Tissue Mobility,Strength Goals stability Jail Goal (LTG) Pt will reports being able to get up at night and feel like he can trust his knees when walking. LTG Duration 12/17/23 activities Short Term Goal (STG) Pt will be able to go up/down stairs reciprocally w/o rail w /o knee pain or LBP STG Duration 11/16/23 Tractor Operator Laser Leveling Goal (LTG) Pt will report being able to walk on any terrain w/o inc knee pain or LBP greater than /10. LTG Duration 12/17/23 strength Short Term Goal (STG) pt will improve LPM to at least 2/5 in all planes and be indep w/HEP STG Duration 11/07/23 Tractor Operator Laser Leveling Goal (LTG) Pt will score at least 3/5 on LPM and at least 4+/5 on B LE MMT to show improved strength and stability to allow greater ease with functional activties. LTG Duration 12/17/23 LEFS Impairment 41/80 Short Term Goal (STG) Pt will improve LEFS score to at least 50/80 to show improved functional ability. STG Duration 11/07/23 Jail Goal (LTG) Pt will improve LEFS score to at least 50/80 to show improved functional ability. LTG Duration 12/17/23 Assessment Summary Assessment Pt presents w/chronic LBP and knee pain with knee pain worsening significantly within the last couple months to the point that he has been woken d/t knee pain. He has hx of a couple injuries to knees but unsure which ones he was told he tore his meniscus on. Pt was positive for meniscus testing on L knee so likely L knee has meniscus tears, and OA B. He has overall good ROM but pain w/L ROM , but B LE weakness along w/dec core stability and stiffness of spien noted w/mobility. 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 He would benefit from skilled PT to address his deficits in order to maintain his activity and be able to do typical daily activities w/o inc pain. Physical Therapy Plan Frequency and Duration Frequency of Treatment 2x/Week Duration of treatment (weeks) 12 Plan of Care Start Date 09/24/23 Plan of Care End Date 12/17/23 Therapeutic Interventions Therapeutic Interventions Balance Training,Gait Training ,Home Exercise Program,Joint Mobilizations,Manual Therapy, Neuromuscular Re-education, Orthotic/Prosthetic Management ,Patient/Caregiver Education, Self-Care/Home Management,Soft Tissue Mobilization,Taping, Therapeutic Activities, Therapeutic Exercises Modalities Cold Pack/Ice Massage,Electric Stimulation,Hot Packs, Infrared Therapy,Iontophoresis ,Traction- Mechanical, Ultrasound Next Visit Focus/Plan Next Note Type Treatment Note Next Visit Plan HEP: sit to stands w/band, s/l clamshells, supine bridges, DL isometric for core/hip flexors, sidesteps w/band manual: address hip mobility w /manual and work on thigh mobility Edu: sleep position Plan of Care Dates Plan of Care Start Date 09/24/23 Plan of Care End Date 12/17/23 Electronically Signed by: Vanda Rosales, PT 09/24/23 2990 If you are in agreement with this Plan of Care, please return a signed and dated copy. I have reviewed this Plan of Care and certify that the skilled therapy services above are required to meet the patient?s needs. Physician Signature Date Printed Name and Credentials Clinical Instructor Signature Printed Name and Credentials
--- NOTE | 2023-10-01 12:19 | PT.OTN ---
Current Diagnoses Other chronic pain (10/01/23) Pain in right knee (10/01/23) Pain in left knee (10/01/23) Difficulty in walking, not elsewhere classified (10/01/23) Abnormal posture (10/01/23) Weakness (10/01/23) Physical Therapy Treatment Note PT-OP-A Visit Information Start: 09/11/23 08:54 Freq: Status: Active Protocol: Document 10/01/23 11:22 [facility] (Rec: 10/01/23 12:19 [facility] [id number]) Out-Patient Physical Therapy Visit Information Visit Information Visit Type Treatment Note Visit Note 10/18 Visit Start Time 11:30 Visit Stop Time 12:01 Visit Number 2 Number of DRY GOODS INSPECTOR Visits 0 PT-OP-B Current Condition Start: 09/11/23 08:54 Freq: Status: Active Protocol: Document 09/24/23 11:06 [facility] (Rec: 09/24/23 12:11 [facility] [id number]) Current Condition History of Current Condition Current Complaints B knee pain, LBP History of Current Condition Pt his history of back pain chronically and recent Parkinson's diagnosis and heart attack history. Pt reports he has B knee pain and the last couple of months they wake him up at night w/ sharp pain. When he gets up at night to go to the bathroom, he makes sure he holds onto something to see how the knees work before starting walking. Knees started to give pain in the past year. 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 Has to grab HR going down stairs now d/t worry about one of those sharp pains . LBP mostly lumbar and into SI for 10-15 year history w/no specific injury. worsened over the years. about 5 years ago, he was rebuilding a house and came out w/garbage can and fell down 2 steps and had to call a amy of his and had to use a 2x4 to use as a cane . He came here and was told he tore his meniscus. DOn't know what knee it was but it went away. He has doen this twice. Treatment Goals Patient/Caregiver Goals Be able to go down hills and stairs more comfortably, be able to get up at night trusting knees PT-OP-C Subjective Start: 09/11/23 08:54 Freq: Status: Active Protocol: Document 10/01/23 11:22 [facility] (Rec: 10/01/23 12:19 [facility] [id number]) OP-PT Subjective Patient Comments Patient Comments Pt reports up/down from a chiar is painful especially the last bit of lowering. PT-OP-D Balance Start: 09/11/23 08:54 Freq: Status: Active Protocol: Document 09/24/23 11:06 [facility] (Rec: 09/24/23 12:11 [facility] [id number]) Balance Tests Single Limb Standing Single Limb- Right >30 sec lat w/lat lean Single Limb- Left >30sec w/lat lean PT-OP-F Manual Assessment Start: 09/11/23 08:54 Freq: Status: Active Protocol: Document 09/24/23 11:06 [facility] (Rec: 09/24/23 12:11 [facility] [id number]) Manual Assessments Soft Tissue Assessment Soft Tissue Mobility Assessment med jt line tendernes Joint Mobility Assessment Joint Mobility Assessment IR of B femurs and R tibia; all IR w/knee flex; L iliac crest higher, equal greater trochanters PT-OP-G Mobility & Gait Start: 09/11/23 08:54 Freq: Status: Active Protocol: Document 09/24/23 11:06 [facility] (Rec: 09/24/23 12:11 [facility] [id number]) OP Gait Assessment Comments Gait Comments lat lean w/wt acceptance on each LE, no RUE arm swing, L min arm swing, limited spine mobility PT-OP-J Posture/Palpation/Skin Start: 09/11/23 08:54 Freq: Status: Active Protocol: Document 09/24/23 11:06 [facility] (Rec: 09/24/23 12:11 [facility] [id number]) Posture Evaluation [facility] Postural Classification System Lumbar Protective Mechanism Left AP 1 Lumbar Protective Mechanism Right AP 1 Lumbar Protective Mechanism Left PA 1 Lumbar Protective Mechanism Right PA 0 PT-OP-K Range of Motion Start: 09/11/23 08:54 Freq: Status: Active Protocol: Document 09/24/23 11:06 [facility] (Rec: 09/24/23 12:11 [facility] [id number]) Knee Goniometric Range of Motion Knee Right Flexion Active (degrees) 120 Extension Active (degrees) 2 Left Flexion Active (degrees) 116 Extension Active (degrees) 5 Comments discomfort w/flex PT-OP-L Special Tests Start: 09/11/23 08:54 Freq: Status: Active Protocol: Document 09/24/23 11:06 [facility] (Rec: 09/24/23 12:11 [facility] [id number]) Special Tests Knee Special Tests SLR Comments tightness in HS B (about equal tightness) Dulce Maria Test Comments pos L Thessaly Test 5 Degrees Comments Pos L Other Special Tests Special Tests 140/92 BP PT-OP-M Strength Start: 09/11/23 08:54 Freq: Status: Active Protocol: Document 09/24/23 11:06 [facility] (Rec: 09/24/23 12:11 [facility] [id number]) Hip Strength Hip Manual Muscle Testing Right Flexion (L2) 3+ Fair+ Extension (S1) 3+ Fair+ Abduction 4- Good- Adduction 4 Good External Rotation 3 Fair Internal Rotation 3+ Fair+ Left Flexion (L2) 3+ Fair+ Extension (S1) 4- Good- Abduction 4 Good Adduction 3+ Fair+ External Rotation 3 Fair Internal Rotation 3+ Fair+ Knee Strength Knee Manual Muscle Testing Right Flexion (S2) 4- Good- Extension (L3) 5 Normal Left Flexion (S2) 4 Good Ankle/Foot Strength Ankle and Foot Manual Muscle Testing Right Dorsiflexion (L4) 5 Normal Plantarflexion (S1) 5 Normal Left Dorsiflexion (L4) 5 Normal Plantarflexion (S1) 5 Normal Comments 20 heel raises B PT-OP-Q Treatments Start: 09/11/23 08:54 Freq: Status: Active Protocol: Document 10/01/23 11:22 [facility] (Rec: 10/01/23 12:19 [facility] [id number]) Therapeutic Exercises Supine Exercises isometric Supine Exercise Name DL flex isometric Side bilateral Reps/Minutes 20 sec x2 bridge Side bilateral Reps/Minutes 5 sec x10 Sidelying Exercises clamshells Side bilateral Reps/Minutes 15 Standing Exercises squat Standing Exercise Name chair behind and hands on bar Side bilateral Equipment Used L2 band at knees Reps/Minutes 15 sidesteps Side bilateral Equipment Used L2 at ankles Reps/Minutes 20ft ea sit to stand Reps/Minutes 4 Comments stopped d/t pain in knee Manual Therapy Treatment Soft Tissue Mobilization quad Body Location VMO & VL Mobilization Type Rolling Intensity/Depth Moderate Body Position Hooklying Self-Care/Home Management Treatment Education Other Education 3 min: discussed use of pillow btwn knees to help support during sleep. edu on trying sleeping on R side if that doesn't help PT-OP-T Assessment and Plan Start: 09/11/23 08:54 Freq: Status: Active Protocol: Document 10/01/23 11:22 [facility] (Rec: 10/01/23 12:19 [facility] [id number]) Physical Therapy Assessment Goals stability Magazine Repairer Goal (LTG) Pt will reports being able to get up at night and feel like he can trust his knees when walking. LTG Duration 12/17/23 activities Short Term Goal (STG) Pt will be able to go up/down stairs reciprocally w/o rail w /o knee pain or LBP STG Duration 11/16/23 Residential Goal (LTG) Pt will report being able to walk on any terrain w/o inc knee pain or LBP greater than 1/10. LTG Duration 12/17/23 strength Short Term Goal (STG) pt will improve LPM to at least 2/5 in all planes and be indep w/HEP STG Duration 11/07/23 Residential Goal (LTG) Pt will score at least 3/5 on LPM and at least 4+/5 on B LE MMT to show improved strength and stability to allow greater ease with functional activties. LTG Duration 12/17/23 LEFS Impairment 41/80 Short Term Goal (STG) Pt will improve LEFS score to at least 50/80 to show improved functional ability. STG Duration 11/07/23 Residential Goal (LTG) Pt will improve LEFS score to at least 50/80 to show improved functional ability. LTG Duration 12/17/23 Assessment Summary Assessment pt reported that knee felt better after manual today and felt easier to move. Pt receptive w/sleep position edu . Pt had pain w/full ROM w/sit to stand so adjsuted to squats which were okay and encouraged to stay in comfortable range. Physical Therapy Plan Frequency and Duration Frequency of Treatment 2x/Week Duration of treatment (weeks) 12 Plan of Care Start Date 09/24/23 Plan of Care End Date 12/17/23 Next Visit Focus/Plan Next Note Type Treatment Note Next Visit Plan review HEP: sit to stands w/ band, s/l clamshells, supine bridges, DL isometric for core /hip flexors, sidesteps w/band manual: address hip mobility w /manual and work on thigh mobility
--- NOTE | 2023-10-07 09:50 | PT.OTN ---
Current Diagnoses Other chronic pain (10/07/23) Pain in right knee (10/07/23) Pain in left knee (10/07/23) Difficulty in walking, not elsewhere classified (10/07/23) Abnormal posture (10/07/23) Weakness (10/07/23) Physical Therapy Treatment Note PT-OP-A Visit Information Start: 09/11/23 08:54 Freq: Status: Active Protocol: Document 10/07/23 09:05 SP (Rec: 10/07/23 10:04 SP [id number]) Out-Patient Physical Therapy Visit Information Visit Information Visit Type Treatment Note Visit Note 11/15 Visit Start Time 09:05 Visit Stop Time 09:50 Visit Number 3 Number of WINDING OPERATOR Visits 1 PT-OP-B Current Condition Start: 09/11/23 08:54 Freq: Status: Active Protocol: Document 09/24/23 11:06 [facility] (Rec: 09/24/23 12:11 [facility] [id number]) Current Condition History of Current Condition Current Complaints B knee pain, LBP History of Current Condition Pt his history of back pain chronically and recent Parkinson's diagnosis and heart attack history. Pt reports he has B knee pain and the last couple of months they wake him up at night w/ sharp pain. When he gets up at night to go to the bathroom, he makes sure he holds onto something to see how the knees work before starting walking. Knees started to give pain in the past year. 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 Has to grab HR going down stairs now d/t worry about one of those sharp pains . LBP mostly lumbar and into SI for 10-15 year history w/no specific injury. worsened over the years. about 5 years ago, he was rebuilding a house and came out w/garbage can and fell down 2 steps and had to call a amy of his and had to use a 2x4 to use as a cane . He came here and was told he tore his meniscus. DOn't know what knee it was but it went away. He has doen this twice. Treatment Goals Patient/Caregiver Goals Be able to go down hills and stairs more comfortably, be able to get up at night trusting knees PT-OP-C Subjective Start: 09/11/23 08:54 Freq: Status: Active Protocol: Document 10/07/23 09:05 SP (Rec: 10/07/23 10:04 SP [id number]) OP-PT Subjective Patient Comments Patient Comments Pt reports did well with post tx and compliant with HEP. REports R glut med pain, wakes him up at night, only uses pillow under head trying use between BLEs as well, blankets make a challenge turn over. PT-OP-D Balance Start: 09/11/23 08:54 Freq: Status: Active Protocol: Document 09/24/23 11:06 [facility] (Rec: 09/24/23 12:11 [facility] [id number]) Balance Tests Single Limb Standing Single Limb- Right >30 sec lat w/lat lean Single Limb- Left >30sec w/lat lean PT-OP-F Manual Assessment Start: 09/11/23 08:54 Freq: Status: Active Protocol: Document 09/24/23 11:06 [facility] (Rec: 09/24/23 12:11 [facility] [id number]) Manual Assessments Soft Tissue Assessment Soft Tissue Mobility Assessment med jt line tendernes Joint Mobility Assessment Joint Mobility Assessment IR of B femurs and R tibia; all IR w/knee flex; L iliac crest higher, equal greater trochanters PT-OP-G Mobility & Gait Start: 09/11/23 08:54 Freq: Status: Active Protocol: Document 09/24/23 11:06 [facility] (Rec: 09/24/23 12:11 [facility] [id number]) OP Gait Assessment Comments Gait Comments lat lean w/wt acceptance on each LE, no RUE arm swing, L min arm swing, limited spine mobility PT-OP-J Posture/Palpation/Skin Start: 09/11/23 08:54 Freq: Status: Active Protocol: Document 09/24/23 11:06 [facility] (Rec: 09/24/23 12:11 [facility] [id number]) Posture Evaluation Darren Postural Classification System Lumbar Protective Mechanism Left AP 1 Lumbar Protective Mechanism Right AP 1 Lumbar Protective Mechanism Left PA 1 Lumbar Protective Mechanism Right PA 0 PT-OP-K Range of Motion Start: 09/11/23 08:54 Freq: Status: Active Protocol: Document 09/24/23 11:06 [facility] (Rec: 09/24/23 12:11 [facility] [id number]) Knee Goniometric Range of Motion Knee Right Flexion Active (degrees) 120 Extension Active (degrees) 2 Left Flexion Active (degrees) 116 Extension Active (degrees) 5 Comments discomfort w/flex PT-OP-L Special Tests Start: 09/11/23 08:54 Freq: Status: Active Protocol: Document 09/24/23 11:06 [facility] (Rec: 09/24/23 12:11 [facility] [id number]) Special Tests Knee Special Tests SLR Comments tightness in HS B (about equal tightness) Dulce Maria Test Comments pos L Thessaly Test 5 Degrees Comments Pos L Other Special Tests Special Tests 140/92 BP PT-OP-M Strength Start: 09/11/23 08:54 Freq: Status: Active Protocol: Document 09/24/23 11:06 [facility] (Rec: 09/24/23 12:11 [facility] [id number]) Hip Strength Hip Manual Muscle Testing Right Flexion (L2) 3+ Fair+ Extension (S1) 3+ Fair+ Abduction 4- Good- Adduction 4 Good External Rotation 3 Fair Internal Rotation 3+ Fair+ Left Flexion (L2) 3+ Fair+ Extension (S1) 4- Good- Abduction 4 Good Adduction 3+ Fair+ External Rotation 3 Fair Internal Rotation 3+ Fair+ Knee Strength Knee Manual Muscle Testing Right Flexion (S2) 4- Good- Extension (L3) 5 Normal Left Flexion (S2) 4 Good Ankle/Foot Strength Ankle and Foot Manual Muscle Testing Right Dorsiflexion (L4) 5 Normal Plantarflexion (S1) 5 Normal Left Dorsiflexion (L4) 5 Normal Plantarflexion (S1) 5 Normal Comments 20 heel raises B PT-OP-Q Treatments Start: 09/11/23 08:54 Freq: Status: Active Protocol: Document 10/07/23 09:05 SP (Rec: 10/07/23 10:04 SP [id number]) Therapeutic Exercises Supine Exercises stretch Supine Exercise Name piriformis, HS /c AP, Bjorn stretch Side right Equipment Used Added to HEP- declined HO- has been doing LTR and piriformis already Reps/Minutes 30SH Comments good feedback stretch and increased R hip ROM isometric Supine Exercise Name DL flex isometric Side bilateral Reps/Minutes 20 sec x2 Comments painfree, cued breath bridge Side bilateral Reps/Minutes 10 reps, 5 sec x2 Comments cued TA, Sidelying Exercises clamshells Sidelying Exercise Name HEP reviewed Side bilateral Resistance AROM Reps/Minutes 15 Comments painfree, good stacked alignment Standing Exercises squat Standing Exercise Name chair behind and hands on bar Side bilateral Equipment Used L2 band upper leon Reps/Minutes 15 Comments mini eccentric squat, little irritation lat L knee sit to stand Resistance TB #2 around knees Equipment Used table 20 Reps/Minutes 4 Comments stopped d/t pain in knee Other Exercises self STMs Other Exercise Name initiated in PT: glut med, piriformis/ rolling pin ITB Side right Equipment Used declined HO Reps/Minutes 30 sec total Comments good feedback response to self rolling Manual Therapy Treatment Soft Tissue Mobilization R hip Body Location glut med, piriformis, ITB Mobilization Type Instrument Assisted,Strumming, Sustained Pressure,Other Intensity/Depth Moderate Body Position Sidelying Comments STMs, MWM FM clamshell, pt good feedback adjust pressure tolerance, ed self STMs ball wall self carryover. Rolling pin ITB. Self-Care/Home Management Treatment Education Other Education 3 min: Time spent ed sidesleep pillow between legs support top hip/back, verbalized understanding and comfortable in PT. PT-OP-T Assessment and Plan Start: 09/11/23 08:54 Freq: Status: Active Protocol: Document 10/07/23 09:05 SP (Rec: 10/07/23 10:04 SP [id number]) Physical Therapy Assessment Goals stability Fire Extinguisher Installer Goal (LTG) Pt will reports being able to get up at night and feel like he can trust his knees when walking. LTG Duration 12/17/23 activities Short Term Goal (STG) Pt will be able to go up/down stairs reciprocally w/o rail w /o knee pain or LBP STG Duration 11/16/23 Fire Extinguisher Installer Goal (LTG) Pt will report being able to walk on any terrain w/o inc knee pain or LBP greater than 1/10. LTG Duration 12/17/23 strength Short Term Goal (STG) pt will improve LPM to at least 2/5 in all planes and be indep w/HEP STG Duration 11/07/23 Fpc Goal (LTG) Pt will score at least 3/5 on LPM and at least 4+/5 on B LE MMT to show improved strength and stability to allow greater ease with functional activties. LTG Duration 12/17/23 LEFS Impairment 41/80 Short Term Goal (STG) Pt will improve LEFS score to at least 50/80 to show improved functional ability. STG Duration 11/07/23 Fpc Goal (LTG) Pt will improve LEFS score to at least 50/80 to show improved functional ability. LTG Duration 12/17/23 Assessment Summary Assessment Pt tolerated manual well and good understanding self application ball wall and rolling pin ITB. Ed self care stretching and manual for flexibility and mobility support. Cues for modify TB squat below knees and mini range support of rail, improved decrease Lat distal R lat knee region discomfort. Mod cues for pillow use sleeping on side between BLEs and set up/proper form bridge, clamshell improved performance, painfree. Physical Therapy Plan Frequency and Duration Frequency of Treatment 2x/Week Duration of treatment (weeks) 12 Plan of Care Start Date 09/24/23 Plan of Care End Date 12/17/23 Therapeutic Interventions Therapeutic Interventions Balance Training,Gait Training ,Home Exercise Program,Joint Mobilizations,Manual Therapy, Neuromuscular Re-education, Orthotic/Prosthetic Management ,Patient/Caregiver Education, Self-Care/Home Management,Soft Tissue Mobilization,Taping, Therapeutic Activities, Therapeutic Exercises Modalities Cold Pack/Ice Massage,Electric Stimulation,Hot Packs, Infrared Therapy,Iontophoresis ,Traction- Mechanical, Ultrasound Next Visit Focus/Plan Next Note Type Treatment Note Next Visit Plan Check manual/self STMs discussed last tx. POC: review HEP: sit to stands w/band, s/l clamshells, supine bridges, DL isometric for core/hip flexors, sidesteps w/band manual: address hip mobility w /manual and work on thigh mobility
--- NOTE | 2023-10-10 09:47 | PT.OTN ---
Current Diagnoses Other chronic pain (10/10/23) Pain in right knee (10/10/23) Pain in left knee (10/10/23) Difficulty in walking, not elsewhere classified (10/10/23) Abnormal posture (10/10/23) Weakness (10/10/23) Physical Therapy Treatment Note PT-OP-A Visit Information Start: 09/11/23 08:54 Freq: Status: Active Protocol: Document 10/10/23 09:05 SP (Rec: 10/10/23 09:51 SP [id number]) Out-Patient Physical Therapy Visit Information Visit Information Visit Type Treatment Note Visit Note 12/16 Visit Start Time 09:05 Visit Stop Time 09:47 Visit Number 4 Number of SOLUTION SPECIALIST Visits 2 PT-OP-B Current Condition Start: 09/11/23 08:54 Freq: Status: Active Protocol: Document 09/24/23 11:06 [facility] (Rec: 09/24/23 12:11 [facility] [id number]) Current Condition History of Current Condition Current Complaints B knee pain, LBP History of Current Condition Pt his history of back pain chronically and recent Parkinson's diagnosis and heart attack history. Pt reports he has B knee pain and the last couple of months they wake him up at night w/ sharp pain. When he gets up at night to go to the bathroom, he makes sure he holds onto something to see how the knees work before starting walking. Knees started to give pain in the past year. 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 Has to grab HR going down stairs now d/t worry about one of those sharp pains . LBP mostly lumbar and into SI for 10-15 year history w/no specific injury. worsened over the years. about 5 years ago, he was rebuilding a house and came out w/garbage can and fell down 2 steps and had to call a amy of his and had to use a 2x4 to use as a cane . He came here and was told he tore his meniscus. DOn't know what knee it was but it went away. He has doen this twice. Treatment Goals Patient/Caregiver Goals Be able to go down hills and stairs more comfortably, be able to get up at night trusting knees PT-OP-C Subjective Start: 09/11/23 08:54 Freq: Status: Active Protocol: Document 10/10/23 09:05 SP (Rec: 10/10/23 09:51 SP [id number]) OP-PT Subjective Patient Comments Patient Comments Pt reported did well after last tx, glut tiring. Had a fall couple days ago, fell between 2 bolders outside in dark looking at cell phone,has abrasions L side chin/R fingers, L knee/leon. Had burning sensation L ach L knee jt that wakes him up, tried pillows between B knees and helps but loose pillow lessen lat hip stretch and switching sides for balance. PT-OP-D Balance Start: 09/11/23 08:54 Freq: Status: Active Protocol: Document 09/24/23 11:06 [facility] (Rec: 09/24/23 12:11 [facility] [id number]) Balance Tests Single Limb Standing Single Limb- Right >30 sec lat w/lat lean Single Limb- Left >30sec w/lat lean PT-OP-F Manual Assessment Start: 09/11/23 08:54 Freq: Status: Active Protocol: Document 09/24/23 11:06 [facility] (Rec: 09/24/23 12:11 [facility] [id number]) Manual Assessments Soft Tissue Assessment Soft Tissue Mobility Assessment med jt line tendernes Joint Mobility Assessment Joint Mobility Assessment IR of B femurs and R tibia; all IR w/knee flex; L iliac crest higher, equal greater trochanters PT-OP-G Mobility & Gait Start: 09/11/23 08:54 Freq: Status: Active Protocol: Document 09/24/23 11:06 [facility] (Rec: 09/24/23 12:11 [facility] [id number]) OP Gait Assessment Comments Gait Comments lat lean w/wt acceptance on each LE, no RUE arm swing, L min arm swing, limited spine mobility PT-OP-J Posture/Palpation/Skin Start: 09/11/23 08:54 Freq: Status: Active Protocol: Document 09/24/23 11:06 [facility] (Rec: 09/24/23 12:11 [facility] [id number]) Posture Evaluation [facility] Postural Classification System Lumbar Protective Mechanism Left AP 1 Lumbar Protective Mechanism Right AP 1 Lumbar Protective Mechanism Left PA 1 Lumbar Protective Mechanism Right PA 0 PT-OP-K Range of Motion Start: 09/11/23 08:54 Freq: Status: Active Protocol: Document 09/24/23 11:06 [facility] (Rec: 09/24/23 12:11 [facility] [id number]) Knee Goniometric Range of Motion Knee Right Flexion Active (degrees) 120 Extension Active (degrees) 2 Left Flexion Active (degrees) 116 Extension Active (degrees) 5 Comments discomfort w/flex PT-OP-L Special Tests Start: 09/11/23 08:54 Freq: Status: Active Protocol: Document 09/24/23 11:06 [facility] (Rec: 09/24/23 12:11 [facility] [id number]) Special Tests Knee Special Tests SLR Comments tightness in HS B (about equal tightness) Dulce Maria Test Comments pos L Thessaly Test 5 Degrees Comments Pos L Other Special Tests Special Tests 140/92 BP PT-OP-M Strength Start: 09/11/23 08:54 Freq: Status: Active Protocol: Document 09/24/23 11:06 [facility] (Rec: 09/24/23 12:11 [facility] [id number]) Hip Strength Hip Manual Muscle Testing Right Flexion (L2) 3+ Fair+ Extension (S1) 3+ Fair+ Abduction 4- Good- Adduction 4 Good External Rotation 3 Fair Internal Rotation 3+ Fair+ Left Flexion (L2) 3+ Fair+ Extension (S1) 4- Good- Abduction 4 Good Adduction 3+ Fair+ External Rotation 3 Fair Internal Rotation 3+ Fair+ Knee Strength Knee Manual Muscle Testing Right Flexion (S2) 4- Good- Extension (L3) 5 Normal Left Flexion (S2) 4 Good Ankle/Foot Strength Ankle and Foot Manual Muscle Testing Right Dorsiflexion (L4) 5 Normal Plantarflexion (S1) 5 Normal Left Dorsiflexion (L4) 5 Normal Plantarflexion (S1) 5 Normal Comments 20 heel raises B PT-OP-Q Treatments Start: 09/11/23 08:54 Freq: Status: Active Protocol: Document 10/10/23 09:05 SP (Rec: 10/10/23 09:51 SP [id number]) Therapeutic Exercises Supine Exercises stretch Supine Exercise Name piriformis, HS /c or /s EL Bjorn stretch Side bilateral Equipment Used provided HO for recall Reps/Minutes 30SH each Comments good feedback stretch and increased R hip ROM isometric Supine Exercise Name DL flex isometric Side bilateral Reps/Minutes 20 sec x2 Comments painfree, cued breath bridge Side bilateral Reps/Minutes 10 reps x 5SH Comments cued TA Standing Exercises lateral lunge slides Standing Exercise Name trialed in PT Side bilateral Equipment Used slider under moving leg Reps/Minutes 8, 3 reps Comments cued hip hinge- good full leg muscle tiring stationary lunges Standing Exercise Name trialed in PT Side bilateral Equipment Used full leg tiring Reps/Minutes 10 reps Comments Mod cues for knee/trunk alignment/stance depth/width Other Exercises self STMs Other Exercise Name Discussed:glut med, piriformis / rolling pin ITB Side right Equipment Used declined HO Reps/Minutes 30 sec total Comments stated will get ball home PT-OP-T Assessment and Plan Start: 09/11/23 08:54 Freq: Status: Active Protocol: Document 10/10/23 09:05 SP (Rec: 10/10/23 09:51 SP [id number]) Physical Therapy Assessment Goals stability Longterm Goal (LTG) Pt will reports being able to get up at night and feel like he can trust his knees when walking. LTG Duration 12/17/23 activities Short Term Goal (STG) Pt will be able to go up/down stairs reciprocally w/o rail w /o knee pain or LBP STG Duration 11/16/23 Longterm Goal (LTG) Pt will report being able to walk on any terrain w/o inc knee pain or LBP greater than 1/10. LTG Duration 12/17/23 strength Short Term Goal (STG) pt will improve LPM to at least 2/5 in all planes and be indep w/HEP STG Duration 11/07/23 Longterm Goal (LTG) Pt will score at least 3/5 on LPM and at least 4+/5 on B LE MMT to show improved strength and stability to allow greater ease with functional activties. LTG Duration 12/17/23 LEFS Impairment 41/80 Short Term Goal (STG) Pt will improve LEFS score to at least 50/80 to show improved functional ability. STG Duration 11/07/23 Curing Machine Operator Goal (LTG) Pt will improve LEFS score to at least 50/80 to show improved functional ability. LTG Duration 12/17/23 Assessment Summary Assessment Pt good response to stretching , provided HOs for recall/set up/form to promote flexibility /ROM. Good response to lunge and lateral lunge gliding for core and hip abd strengthening , mod cues for set up, good form, stable/ muscle allowance supported depth and knee with behind forefoot alignment. Pt doesn't need UE support, will continue to assess in PT with cuing needed. Physical Therapy Plan Frequency and Duration Frequency of Treatment 2x/Week Duration of treatment (weeks) 12 Plan of Care Start Date 09/24/23 Plan of Care End Date 12/17/23 Therapeutic Interventions Therapeutic Interventions Balance Training,Gait Training ,Home Exercise Program,Joint Mobilizations,Manual Therapy, Neuromuscular Re-education, Orthotic/Prosthetic Management ,Patient/Caregiver Education, Self-Care/Home Management,Soft Tissue Mobilization,Taping, Therapeutic Activities, Therapeutic Exercises Modalities Cold Pack/Ice Massage,Electric Stimulation,Hot Packs, Infrared Therapy,Iontophoresis ,Traction- Mechanical, Ultrasound Next Visit Focus/Plan Next Note Type Treatment Note Next Visit Plan Next tx check/add self STMs discussed last tx. POC: review HEP: sit to stands w/band, s/l clamshells, supine bridges, DL isometric for core/hip flexors, sidesteps w/band manual: address hip mobility w /manual and work on thigh mobility
--- NOTE | 2023-10-13 10:36 | PT.OTN ---
Current Diagnoses Other chronic pain (10/13/23) Pain in right knee (10/13/23) Pain in left knee (10/13/23) Difficulty in walking, not elsewhere classified (10/13/23) Abnormal posture (10/13/23) Weakness (10/13/23) Physical Therapy Treatment Note PT-OP-A Visit Information Start: 09/11/23 08:54 Freq: Status: Active Protocol: Document 10/13/23 09:50 [facility] (Rec: 10/13/23 10:36 [facility] [id number]) Out-Patient Physical Therapy Visit Information Visit Information Visit Type Treatment Note Visit Note 01/15 Visit Start Time 09:51 Visit Stop Time 10:31 Visit Number 5 Number of TENANT RELATIONS COORDINATOR Visits 0 PT-OP-B Current Condition Start: 09/11/23 08:54 Freq: Status: Active Protocol: Document 09/24/23 11:06 [facility] (Rec: 09/24/23 12:11 [facility] [id number]) Current Condition History of Current Condition Current Complaints B knee pain, LBP History of Current Condition Pt his history of back pain chronically and recent Parkinson's diagnosis and heart attack history. Pt reports he has B knee pain and the last couple of months they wake him up at night w/ sharp pain. When he gets up at night to go to the bathroom, he makes sure he holds onto something to see how the knees work before starting walking. Knees started to give pain in the past year. 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 Has to grab HR going down stairs now d/t worry about one of those sharp pains . LBP mostly lumbar and into SI for 10-15 year history w/no specific injury. worsened over the years. about 5 years ago, he was rebuilding a house and came out w/garbage can and fell down 2 steps and had to call a amy of his and had to use a 2x4 to use as a cane . He came here and was told he tore his meniscus. DOn't know what knee it was but it went away. He has doen this twice. Treatment Goals Patient/Caregiver Goals Be able to go down hills and stairs more comfortably, be able to get up at night trusting knees PT-OP-C Subjective Start: 09/11/23 08:54 Freq: Status: Active Protocol: Document 10/13/23 09:50 [facility] (Rec: 10/13/23 10:36 [facility] [id number]) OP-PT Subjective Patient Comments Patient Comments Pt reports his knees cont to keep him awake at night a lot. Its an intense ache. pillow at night doesnt seem to make a difference. He isn't doing exercises at home too much. PT-OP-D Balance Start: 09/11/23 08:54 Freq: Status: Active Protocol: Document 09/24/23 11:06 [facility] (Rec: 09/24/23 12:11 [facility] [id number]) Balance Tests Single Limb Standing Single Limb- Right >30 sec lat w/lat lean Single Limb- Left >30sec w/lat lean PT-OP-F Manual Assessment Start: 09/11/23 08:54 Freq: Status: Active Protocol: Document 09/24/23 11:06 [facility] (Rec: 09/24/23 12:11 [facility] [id number]) Manual Assessments Soft Tissue Assessment Soft Tissue Mobility Assessment med jt line tendernes Joint Mobility Assessment Joint Mobility Assessment IR of B femurs and R tibia; all IR w/knee flex; L iliac crest higher, equal greater trochanters PT-OP-G Mobility & Gait Start: 09/11/23 08:54 Freq: Status: Active Protocol: Document 09/24/23 11:06 [facility] (Rec: 09/24/23 12:11 [facility] [id number]) OP Gait Assessment Comments Gait Comments lat lean w/wt acceptance on each LE, no RUE arm swing, L min arm swing, limited spine mobility PT-OP-J Posture/Palpation/Skin Start: 09/11/23 08:54 Freq: Status: Active Protocol: Document 09/24/23 11:06 [facility] (Rec: 09/24/23 12:11 [facility] [id number]) Posture Evaluation Darren Postural Classification System Lumbar Protective Mechanism Left AP 1 Lumbar Protective Mechanism Right AP 1 Lumbar Protective Mechanism Left PA 1 Lumbar Protective Mechanism Right PA 0 PT-OP-K Range of Motion Start: 09/11/23 08:54 Freq: Status: Active Protocol: Document 09/24/23 11:06 [facility] (Rec: 09/24/23 12:11 [facility] [id number]) Knee Goniometric Range of Motion Knee Right Flexion Active (degrees) 120 Extension Active (degrees) 2 Left Flexion Active (degrees) 116 Extension Active (degrees) 5 Comments discomfort w/flex PT-OP-L Special Tests Start: 09/11/23 08:54 Freq: Status: Active Protocol: Document 09/24/23 11:06 [facility] (Rec: 09/24/23 12:11 [facility] [id number]) Special Tests Knee Special Tests SLR Comments tightness in HS B (about equal tightness) Dulce Maria Test Comments pos L Thessaly Test 5 Degrees Comments Pos L Other Special Tests Special Tests 140/92 BP PT-OP-M Strength Start: 09/11/23 08:54 Freq: Status: Active Protocol: Document 09/24/23 11:06 [facility] (Rec: 09/24/23 12:11 [facility] [id number]) Hip Strength Hip Manual Muscle Testing Right Flexion (L2) 3+ Fair+ Extension (S1) 3+ Fair+ Abduction 4- Good- Adduction 4 Good External Rotation 3 Fair Internal Rotation 3+ Fair+ Left Flexion (L2) 3+ Fair+ Extension (S1) 4- Good- Abduction 4 Good Adduction 3+ Fair+ External Rotation 3 Fair Internal Rotation 3+ Fair+ Knee Strength Knee Manual Muscle Testing Right Flexion (S2) 4- Good- Extension (L3) 5 Normal Left Flexion (S2) 4 Good Ankle/Foot Strength Ankle and Foot Manual Muscle Testing Right Dorsiflexion (L4) 5 Normal Plantarflexion (S1) 5 Normal Left Dorsiflexion (L4) 5 Normal Plantarflexion (S1) 5 Normal Comments 20 heel raises B PT-OP-Q Treatments Start: 09/11/23 08:54 Freq: Status: Active Protocol: Document 10/13/23 09:50 [facility] (Rec: 10/13/23 10:36 [facility] [id number]) Therapeutic Exercises Standing Exercises resisted walk Standing Exercise Name monster walk fwd then back walk Side bilateral Equipment Used L2 Reps/Minutes 20ft ea lateral lunge slides Standing Exercise Name trialed in PT Side bilateral Equipment Used slider under moving leg Reps/Minutes 10 ea Comments cued hip hinge- good full leg muscle tiring stationary lunges Standing Exercise Name trialed in PT Side bilateral Reps/Minutes 10 reps Comments Mod cues for knee/trunk alignment/stance depth/width sidesteps Side bilateral Equipment Used L2 at ankles Reps/Minutes 20ft ea Comments cues Manual Therapy Treatment Soft Tissue Mobilization quad Body Location B quad tendon Mobilization Type Rolling Intensity/Depth Moderate Joint Mobilizations tibfib Joint AP L FM PF Joint sup, inf, med R tib fem Comments AP femur L FM; AP tibia w/IR R FM Taping knees Type of Tape Kinesio Tape Comments I strip for med glide on L ( avoiding scabs) I strip under patella R Self-Care/Home Management Treatment Education Other Education 12 min: discussion re: options prior to surgery (injections- recommendation to sports med); discussed how they can help calm pain so he can improve strength; edu on importance of compliance of HEP consistently at home to help PT-OP-T Assessment and Plan Start: 09/11/23 08:54 Freq: Status: Active Protocol: Document 10/13/23 09:50 [facility] (Rec: 10/13/23 10:36 [facility] [id number]) Physical Therapy Assessment Goals stability Alf Goal (LTG) Pt will reports being able to get up at night and feel like he can trust his knees when walking. LTG Duration 12/17/23 activities Short Term Goal (STG) Pt will be able to go up/down stairs reciprocally w/o rail w /o knee pain or LBP STG Duration 11/16/23 Fisher Trawl Line Goal (LTG) Pt will report being able to walk on any terrain w/o inc knee pain or LBP greater than 1/10. LTG Duration 12/17/23 strength Short Term Goal (STG) pt will improve LPM to at least 2/5 in all planes and be indep w/HEP STG Duration 11/07/23 Fisher Trawl Line Goal (LTG) Pt will score at least 3/5 on LPM and at least 4+/5 on B LE MMT to show improved strength and stability to allow greater ease with functional activties. LTG Duration 12/17/23 LEFS Impairment 41/80 Short Term Goal (STG) Pt will improve LEFS score to at least 50/80 to show improved functional ability. STG Duration 11/07/23 Alf Goal (LTG) Pt will improve LEFS score to at least 50/80 to show improved functional ability. LTG Duration 12/17/23 Assessment Summary Assessment Pt reported no pain except w/ lunges w/R fwd in R knees. he did well with exercises overall w/cues for form Physical Therapy Plan Frequency and Duration Frequency of Treatment 2x/Week Duration of treatment (weeks) 12 Plan of Care Start Date 09/24/23 Plan of Care End Date 12/17/23 Next Visit Focus/Plan Next Note Type Treatment Note Next Visit Plan cont to work on hip strength; work on knee tracking and manual to improve knee mobility
--- NOTE | 2023-10-16 15:44 | PT.OTN ---
Current Diagnoses Other chronic pain (10/16/23) Pain in right knee (10/16/23) Pain in left knee (10/16/23) Difficulty in walking, not elsewhere classified (10/16/23) Abnormal posture (10/16/23) Weakness (10/16/23) Physical Therapy Treatment Note PT-OP-A Visit Information Start: 09/11/23 08:54 Freq: Status: Active Protocol: Document 10/16/23 10:22 [facility] (Rec: 10/16/23 15:43 [facility] [id number]) Out-Patient Physical Therapy Visit Information Visit Information Visit Type Treatment Note Visit Note 02/15 Visit Start Time 10:31 Visit Stop Time 11:15 Visit Number 6 Number of CRAP SHOOTER Visits 1 PT-OP-B Current Condition Start: 09/11/23 08:54 Freq: Status: Active Protocol: Document 09/24/23 11:06 [facility] (Rec: 09/24/23 12:11 [facility] [id number]) Current Condition History of Current Condition Current Complaints B knee pain, LBP History of Current Condition Pt his history of back pain chronically and recent Parkinson's diagnosis and heart attack history. Pt reports he has B knee pain and the last couple of months they wake him up at night w/ sharp pain. When he gets up at night to go to the bathroom, he makes sure he holds onto something to see how the knees work before starting walking. Knees started to give pain in the past year. 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 Has to grab HR going down stairs now d/t worry about one of those sharp pains . LBP mostly lumbar and into SI for 10-15 year history w/no specific injury. worsened over the years. about 5 years ago, he was rebuilding a house and came out w/garbage can and fell down 2 steps and had to call a amy of his and had to use a 2x4 to use as a cane . He came here and was told he tore his meniscus. DOn't know what knee it was but it went away. He has doen this twice. Treatment Goals Patient/Caregiver Goals Be able to go down hills and stairs more comfortably, be able to get up at night trusting knees PT-OP-C Subjective Start: 09/11/23 08:54 Freq: Status: Active Protocol: Document 10/16/23 10:22 [facility] (Rec: 10/16/23 15:43 [facility] [id number]) OP-PT Subjective Patient Comments Patient Comments Patient reports he didn't wake up with knee pain last night. Patient reports no pain with with sit to and from stand, ( quad dom, inc velocity stand to sit )but reports knees feel weak. Patient reports area low back/ SI gluteal feel better post being worked on previous session. Patient into session with Kinesio tape in place bilateral knees PT-OP-D Balance Start: 09/11/23 08:54 Freq: Status: Active Protocol: Document 09/24/23 11:06 [facility] (Rec: 09/24/23 12:11 [facility] [id number]) Balance Tests Single Limb Standing Single Limb- Right >30 sec lat w/lat lean Single Limb- Left >30sec w/lat lean PT-OP-F Manual Assessment Start: 09/11/23 08:54 Freq: Status: Active Protocol: Document 09/24/23 11:06 [facility] (Rec: 09/24/23 12:11 [facility] [id number]) Manual Assessments Soft Tissue Assessment Soft Tissue Mobility Assessment med jt line tendernes Joint Mobility Assessment Joint Mobility Assessment IR of B femurs and R tibia; all IR w/knee flex; L iliac crest higher, equal greater trochanters PT-OP-G Mobility & Gait Start: 09/11/23 08:54 Freq: Status: Active Protocol: Document 09/24/23 11:06 [facility] (Rec: 09/24/23 12:11 [facility] [id number]) OP Gait Assessment Comments Gait Comments lat lean w/wt acceptance on each LE, no RUE arm swing, L min arm swing, limited spine mobility PT-OP-J Posture/Palpation/Skin Start: 09/11/23 08:54 Freq: Status: Active Protocol: Document 09/24/23 11:06 [facility] (Rec: 09/24/23 12:11 [facility] [id number]) Posture Evaluation [facility] Postural Classification System Lumbar Protective Mechanism Left AP 1 Lumbar Protective Mechanism Right AP 1 Lumbar Protective Mechanism Left PA 1 Lumbar Protective Mechanism Right PA 0 PT-OP-K Range of Motion Start: 09/11/23 08:54 Freq: Status: Active Protocol: Document 09/24/23 11:06 [facility] (Rec: 09/24/23 12:11 [facility] [id number]) Knee Goniometric Range of Motion Knee Right Flexion Active (degrees) 120 Extension Active (degrees) 2 Left Flexion Active (degrees) 116 Extension Active (degrees) 5 Comments discomfort w/flex PT-OP-L Special Tests Start: 09/11/23 08:54 Freq: Status: Active Protocol: Document 09/24/23 11:06 [facility] (Rec: 09/24/23 12:11 [facility] [id number]) Special Tests Knee Special Tests SLR Comments tightness in HS B (about equal tightness) Dulce Maria Test Comments pos L Thessaly Test 5 Degrees Comments Pos L Other Special Tests Special Tests 140/92 BP PT-OP-M Strength Start: 09/11/23 08:54 Freq: Status: Active Protocol: Document 09/24/23 11:06 [facility] (Rec: 09/24/23 12:11 [facility] [id number]) Hip Strength Hip Manual Muscle Testing Right Flexion (L2) 3+ Fair+ Extension (S1) 3+ Fair+ Abduction 4- Good- Adduction 4 Good External Rotation 3 Fair Internal Rotation 3+ Fair+ Left Flexion (L2) 3+ Fair+ Extension (S1) 4- Good- Abduction 4 Good Adduction 3+ Fair+ External Rotation 3 Fair Internal Rotation 3+ Fair+ Knee Strength Knee Manual Muscle Testing Right Flexion (S2) 4- Good- Extension (L3) 5 Normal Left Flexion (S2) 4 Good Ankle/Foot Strength Ankle and Foot Manual Muscle Testing Right Dorsiflexion (L4) 5 Normal Plantarflexion (S1) 5 Normal Left Dorsiflexion (L4) 5 Normal Plantarflexion (S1) 5 Normal Comments 20 heel raises B PT-OP-Q Treatments Start: 09/11/23 08:54 Freq: Status: Active Protocol: Document 10/16/23 10:22 [facility] (Rec: 10/16/23 15:43 [facility] [id number]) Therapeutic Exercises Supine Exercises lower trunk rotation Supine Exercise Name LTR review Side bilateral Reps/Minutes 10 Comments Patient ed to perform when having increased stiffness stretch Supine Exercise Name piriformis, HS , Bjorn stretch edge of Side bilateral Reps/Minutes 60 sec X 2 each LE each stretch Comments good feedback stretch and increased R hip ROM Therapeutic Activity Therapeutic Activity stairs Name 6 inch stairs no to one rail Reps/Minutes 4 six inch stairs X 4 Comments Verbal and visual cues for ascending and descending stairs with a less quad dominant pattern, and for UE position on the rail to allow for/facilitate hip hinge position. sit to stand with hip hinge Name sit to stand Reps/Minutes X4 Comments Patient ed mech of sit to stand with use of spine model and use of self tactile cues for hip hinge. Manual Therapy Treatment Soft Tissue Mobilization right LS paraspinals Body Location LS paraspinals Right nerve slacking Comments superficial to moderate nerve slacking R hip Body Location gluteal/piriformis area Mobilization Type Rolling,Strumming,Sustained Pressure Intensity/Depth Moderate Body Position Sidelying Comments monit for pain PT-OP-T Assessment and Plan Start: 09/11/23 08:54 Freq: Status: Active Protocol: Document 10/16/23 10:22 [facility] (Rec: 10/16/23 15:43 [facility] [id number]) Physical Therapy Assessment Goals stability Shingle Packer Goal (LTG) Pt will reports being able to get up at night and feels like he can trust his knees when walking. LTG Duration 12/17/23 activities Short Term Goal (STG) Pt will be able to go up/down stairs reciprocally w/o rail w /o knee pain or LBP 10/16/2023 Patient reportshaving no pain ascending and descending 6 inch stairs without rail. STG Duration 11/16/23 Shingle Packer Goal (LTG) Pt will report being able to walk on any terrain w/o inc knee pain or LBP greater than 1/10. LTG Duration 12/17/23 strength Short Term Goal (STG) pt will improve LPM to at least 2/5 in all planes and be indep w/HEP STG Duration 11/07/23 Detention Goal (LTG) Pt will score at least 3/5 on LPM and at least 4+/5 on B LE MMT to show improved strength and stability to allow greater ease with functional activties. LTG Duration 12/17/23 LEFS Impairment 41/80 Short Term Goal (STG) Pt will improve LEFS score to at least 50/80 to show improved functional ability. STG Duration 11/07/23 Shingle Packer Goal (LTG) Pt will improve LEFS score to at least 50/80 to show improved functional ability. LTG Duration 12/17/23 Assessment Summary Assessment Patient into session with reports of decreased knee pain and improved ability to sleep . Patient descends stairs with a quad dominant pattern increased velocity without rails, able to descend with a less quad dominant pattern and decreased velocity post training. HEP stretch review with patient reporting he needed more copies of HEP when questioned. Copies of HEP handed out this session Physical Therapy Plan Frequency and Duration Frequency of Treatment 2x/Week Duration of treatment (weeks) 12 Plan of Care Start Date 09/24/23 Plan of Care End Date 12/17/23 Next Visit Focus/Plan Next Note Type Treatment Note Next Visit Plan cont to work on hip strength; work on knee tracking and manual to improve knee mobility Possibly review HEP strengthing exercises, progress sit to stand/squats as able.
--- NOTE | 2023-10-21 12:17 | PT.OTN ---
Current Diagnoses Other chronic pain (10/21/23) Pain in right knee (10/21/23) Pain in left knee (10/21/23) Difficulty in walking, not elsewhere classified (10/21/23) Abnormal posture (10/21/23) Weakness (10/21/23) Physical Therapy Treatment Note PT-OP-A Visit Information Start: 09/11/23 08:54 Freq: Status: Active Protocol: Document 10/21/23 11:20 [facility] (Rec: 10/21/23 12:17 [facility] [id number]) Out-Patient Physical Therapy Visit Information Visit Information Visit Type Treatment Note Visit Note 03/17 Visit Start Time 11:21 Visit Stop Time 12:00 Visit Number 7 Number of HEAD OF MAINTENANCE Visits 0 PT-OP-B Current Condition Start: 09/11/23 08:54 Freq: Status: Active Protocol: Document 09/24/23 11:06 [facility] (Rec: 09/24/23 12:11 [facility] [id number]) Current Condition History of Current Condition Current Complaints B knee pain, LBP History of Current Condition Pt his history of back pain chronically and recent Parkinson's diagnosis and heart attack history. Pt reports he has B knee pain and the last couple of months they wake him up at night w/ sharp pain. When he gets up at night to go to the bathroom, he makes sure he holds onto something to see how the knees work before starting walking. Knees started to give pain in the past year. 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 Has to grab HR going down stairs now d/t worry about one of those sharp pains . LBP mostly lumbar and into SI for 10-15 year history w/no specific injury. worsened over the years. about 5 years ago, he was rebuilding a house and came out w/garbage can and fell down 2 steps and had to call a amy of his and had to use a 2x4 to use as a cane . He came here and was told he tore his meniscus. DOn't know what knee it was but it went away. He has doen this twice. Treatment Goals Patient/Caregiver Goals Be able to go down hills and stairs more comfortably, be able to get up at night trusting knees PT-OP-C Subjective Start: 09/11/23 08:54 Freq: Status: Active Protocol: Document 10/21/23 11:20 [facility] (Rec: 10/21/23 12:17 [facility] [id number]) OP-PT Subjective Patient Comments Patient Comments Pt reports he was really busy the past few days helping a friend w/a house project and was up/down stairs a lot and had knee pain. Hasn't had knee pain that wakes him since last fri. PT-OP-D Balance Start: 09/11/23 08:54 Freq: Status: Active Protocol: Document 09/24/23 11:06 [facility] (Rec: 09/24/23 12:11 [facility] [id number]) Balance Tests Single Limb Standing Single Limb- Right >30 sec lat w/lat lean Single Limb- Left >30sec w/lat lean PT-OP-F Manual Assessment Start: 09/11/23 08:54 Freq: Status: Active Protocol: Document 09/24/23 11:06 [facility] (Rec: 09/24/23 12:11 [facility] [id number]) Manual Assessments Soft Tissue Assessment Soft Tissue Mobility Assessment med jt line tendernes Joint Mobility Assessment Joint Mobility Assessment IR of B femurs and R tibia; all IR w/knee flex; L iliac crest higher, equal greater trochanters PT-OP-G Mobility & Gait Start: 09/11/23 08:54 Freq: Status: Active Protocol: Document 09/24/23 11:06 [facility] (Rec: 09/24/23 12:11 [facility] [id number]) OP Gait Assessment Comments Gait Comments lat lean w/wt acceptance on each LE, no RUE arm swing, L min arm swing, limited spine mobility PT-OP-J Posture/Palpation/Skin Start: 09/11/23 08:54 Freq: Status: Active Protocol: Document 09/24/23 11:06 [facility] (Rec: 09/24/23 12:11 [facility] [id number]) Posture Evaluation Darren Postural Classification System Lumbar Protective Mechanism Left AP 1 Lumbar Protective Mechanism Right AP 1 Lumbar Protective Mechanism Left PA 1 Lumbar Protective Mechanism Right PA 0 PT-OP-K Range of Motion Start: 09/11/23 08:54 Freq: Status: Active Protocol: Document 09/24/23 11:06 [facility] (Rec: 09/24/23 12:11 [facility] [id number]) Knee Goniometric Range of Motion Knee Right Flexion Active (degrees) 120 Extension Active (degrees) 2 Left Flexion Active (degrees) 116 Extension Active (degrees) 5 Comments discomfort w/flex PT-OP-L Special Tests Start: 09/11/23 08:54 Freq: Status: Active Protocol: Document 09/24/23 11:06 [facility] (Rec: 09/24/23 12:11 [facility] [id number]) Special Tests Knee Special Tests SLR Comments tightness in HS B (about equal tightness) Dulce Maria Test Comments pos L Thessaly Test 5 Degrees Comments Pos L Other Special Tests Special Tests 140/92 BP PT-OP-M Strength Start: 09/11/23 08:54 Freq: Status: Active Protocol: Document 09/24/23 11:06 [facility] (Rec: 09/24/23 12:11 [facility] [id number]) Hip Strength Hip Manual Muscle Testing Right Flexion (L2) 3+ Fair+ Extension (S1) 3+ Fair+ Abduction 4- Good- Adduction 4 Good External Rotation 3 Fair Internal Rotation 3+ Fair+ Left Flexion (L2) 3+ Fair+ Extension (S1) 4- Good- Abduction 4 Good Adduction 3+ Fair+ External Rotation 3 Fair Internal Rotation 3+ Fair+ Knee Strength Knee Manual Muscle Testing Right Flexion (S2) 4- Good- Extension (L3) 5 Normal Left Flexion (S2) 4 Good Ankle/Foot Strength Ankle and Foot Manual Muscle Testing Right Dorsiflexion (L4) 5 Normal Plantarflexion (S1) 5 Normal Left Dorsiflexion (L4) 5 Normal Plantarflexion (S1) 5 Normal Comments 20 heel raises B PT-OP-Q Treatments Start: 09/11/23 08:54 Freq: Status: Active Protocol: Document 10/21/23 11:20 [facility] (Rec: 10/21/23 12:17 [facility] [id number]) Gym Equipment Shuttle Recovery Unilateral Squats Details 37# (full range)-cues control Shuttle Recovery Platform Stable Reps/Time 10 Bilateral Squats Details full range cues for slow w/ eccentric Resistance 87# Shuttle Recovery Platform Stable Therapeutic Exercises Supine Exercises stretch Supine Exercise Name piriformis, HS , Bjorn stretch EOB Side bilateral Reps/Minutes 60 sec ea Comments good feedback stretch and increased R hip ROM isometric Supine Exercise Name DL flex isometric Side bilateral Reps/Minutes 20 sec ea Comments painfree, cued breath Standing Exercises resisted walk Standing Exercise Name monster walk fwd then back walk Side bilateral Equipment Used L2 Reps/Minutes 2x10ft ea squat Standing Exercise Name chair behind-partial Side bilateral Equipment Used L2 band upper leon Reps/Minutes 10 Comments cues for sitting buttocks back sidesteps Side bilateral Equipment Used L2 at ankles Reps/Minutes 2x10ft ea Comments cues for upright posture Manual Therapy Treatment Soft Tissue Mobilization quad Body Location L VL & VM Mobilization Type Rolling Intensity/Depth Moderate Comments in knee flex Joint Mobilizations tib fem Comments AP femur & tibia AP w/IR R FM L PA FM Taping knees Type of Tape Kinesio Tape Comments I strip for med glide on L ( avoiding scabs) I strip under patella R PT-OP-T Assessment and Plan Start: 09/11/23 08:54 Freq: Status: Active Protocol: Document 10/21/23 11:20 [facility] (Rec: 10/21/23 12:17 [facility] [id number]) Physical Therapy Assessment Goals stability Long-Term Goal (LTG) Pt will reports being able to get up at night and feels like he can trust his knees when walking. LTG Duration 12/17/23 activities Short Term Goal (STG) Pt will be able to go up/down stairs reciprocally w/o rail w /o knee pain or LBP 10/16/2023 Patient reportshaving no pain ascending and descending 6 inch stairs without rail. STG Duration 11/16/23 Brim Pouncer Goal (LTG) Pt will report being able to walk on any terrain w/o inc knee pain or LBP greater than 1/10. LTG Duration 12/17/23 strength Short Term Goal (STG) pt will improve LPM to at least 2/5 in all planes and be indep w/HEP STG Duration 11/07/23 Long-Term Goal (LTG) Pt will score at least 3/5 on LPM and at least 4+/5 on B LE MMT to show improved strength and stability to allow greater ease with functional activties. LTG Duration 12/17/23 LEFS Impairment 41/80 Short Term Goal (STG) Pt will improve LEFS score to at least 50/80 to show improved functional ability. STG Duration 11/07/23 Long-Term Goal (LTG) Pt will improve LEFS score to at least 50/80 to show improved functional ability. LTG Duration 12/17/23 Assessment Summary Assessment Pt did well with exercises but still requires min cueing throughout for form and comfortable range. He is improving w/depth of squat that he reports that is comfortable though. Physical Therapy Plan Frequency and Duration Frequency of Treatment 2x/Week Duration of treatment (weeks) 12 Plan of Care Start Date 09/24/23 Plan of Care End Date 12/17/23 Next Visit Focus/Plan Next Note Type Treatment Note Next Visit Plan cont to work on hip strength; work on knee tracking and manual to improve knee mobility cont to encourage HEP compliance
--- NOTE | 2023-10-23 11:23 | PT.OTN ---
Current Diagnoses Other chronic pain (10/23/23) Pain in right knee (10/23/23) Pain in left knee (10/23/23) Difficulty in walking, not elsewhere classified (10/23/23) Abnormal posture (10/23/23) Weakness (10/23/23) Physical Therapy Treatment Note PT-OP-A Visit Information Start: 09/11/23 08:54 Freq: Status: Active Protocol: Document 10/23/23 10:46 [facility] (Rec: 10/23/23 11:23 [facility] [id number]) Out-Patient Physical Therapy Visit Information Visit Information Visit Type Treatment Note Visit Note 04/17 Visit Start Time 10:41 Visit Stop Time 11:19 Visit Number 8 Number of CRIMINAL LEGAL ASSISTANT Visits 0 PT-OP-B Current Condition Start: 09/11/23 08:54 Freq: Status: Active Protocol: Document 09/24/23 11:06 [facility] (Rec: 09/24/23 12:11 [facility] [id number]) Current Condition History of Current Condition Current Complaints B knee pain, LBP History of Current Condition Pt his history of back pain chronically and recent Parkinson's diagnosis and heart attack history. Pt reports he has B knee pain and the last couple of months they wake him up at night w/ sharp pain. When he gets up at night to go to the bathroom, he makes sure he holds onto something to see how the knees work before starting walking. Knees started to give pain in the past year. 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 Has to grab HR going down stairs now d/t worry about one of those sharp pains . LBP mostly lumbar and into SI for 10-15 year history w/no specific injury. worsened over the years. about 5 years ago, he was rebuilding a house and came out w/garbage can and fell down 2 steps and had to call a amy of his and had to use a 2x4 to use as a cane . He came here and was told he tore his meniscus. DOn't know what knee it was but it went away. He has doen this twice. Treatment Goals Patient/Caregiver Goals Be able to go down hills and stairs more comfortably, be able to get up at night trusting knees PT-OP-C Subjective Start: 09/11/23 08:54 Freq: Status: Active Protocol: Document 10/23/23 10:46 [facility] (Rec: 10/23/23 11:23 [facility] [id number]) OP-PT Subjective Patient Comments Patient Comments Pt reports he didn't have time yesterday to get his exercises in. He was putting floor down and was in knee pads. It wore him out physically and was mostly just weraing him out but not painful. PT-OP-D Balance Start: 09/11/23 08:54 Freq: Status: Active Protocol: Document 09/24/23 11:06 [facility] (Rec: 09/24/23 12:11 [facility] [id number]) Balance Tests Single Limb Standing Single Limb- Right >30 sec lat w/lat lean Single Limb- Left >30sec w/lat lean PT-OP-F Manual Assessment Start: 09/11/23 08:54 Freq: Status: Active Protocol: Document 09/24/23 11:06 [facility] (Rec: 09/24/23 12:11 [facility] [id number]) Manual Assessments Soft Tissue Assessment Soft Tissue Mobility Assessment med jt line tendernes Joint Mobility Assessment Joint Mobility Assessment IR of B femurs and R tibia; all IR w/knee flex; L iliac crest higher, equal greater trochanters PT-OP-G Mobility & Gait Start: 09/11/23 08:54 Freq: Status: Active Protocol: Document 09/24/23 11:06 [facility] (Rec: 09/24/23 12:11 [facility] [id number]) OP Gait Assessment Comments Gait Comments lat lean w/wt acceptance on each LE, no RUE arm swing, L min arm swing, limited spine mobility PT-OP-J Posture/Palpation/Skin Start: 09/11/23 08:54 Freq: Status: Active Protocol: Document 09/24/23 11:06 [facility] (Rec: 09/24/23 12:11 [facility] [id number]) Posture Evaluation Darren Postural Classification System Lumbar Protective Mechanism Left AP 1 Lumbar Protective Mechanism Right AP 1 Lumbar Protective Mechanism Left PA 1 Lumbar Protective Mechanism Right PA 0 PT-OP-K Range of Motion Start: 09/11/23 08:54 Freq: Status: Active Protocol: Document 09/24/23 11:06 [facility] (Rec: 09/24/23 12:11 [facility] [id number]) Knee Goniometric Range of Motion Knee Right Flexion Active (degrees) 120 Extension Active (degrees) 2 Left Flexion Active (degrees) 116 Extension Active (degrees) 5 Comments discomfort w/flex PT-OP-L Special Tests Start: 09/11/23 08:54 Freq: Status: Active Protocol: Document 09/24/23 11:06 [facility] (Rec: 09/24/23 12:11 [facility] [id number]) Special Tests Knee Special Tests SLR Comments tightness in HS B (about equal tightness) Dulce Maria Test Comments pos L Thessaly Test 5 Degrees Comments Pos L Other Special Tests Special Tests 140/92 BP PT-OP-M Strength Start: 09/11/23 08:54 Freq: Status: Active Protocol: Document 09/24/23 11:06 [facility] (Rec: 09/24/23 12:11 [facility] [id number]) Hip Strength Hip Manual Muscle Testing Right Flexion (L2) 3+ Fair+ Extension (S1) 3+ Fair+ Abduction 4- Good- Adduction 4 Good External Rotation 3 Fair Internal Rotation 3+ Fair+ Left Flexion (L2) 3+ Fair+ Extension (S1) 4- Good- Abduction 4 Good Adduction 3+ Fair+ External Rotation 3 Fair Internal Rotation 3+ Fair+ Knee Strength Knee Manual Muscle Testing Right Flexion (S2) 4- Good- Extension (L3) 5 Normal Left Flexion (S2) 4 Good Ankle/Foot Strength Ankle and Foot Manual Muscle Testing Right Dorsiflexion (L4) 5 Normal Plantarflexion (S1) 5 Normal Left Dorsiflexion (L4) 5 Normal Plantarflexion (S1) 5 Normal Comments 20 heel raises B PT-OP-Q Treatments Start: 09/11/23 08:54 Freq: Status: Active Protocol: Document 10/23/23 10:46 [facility] (Rec: 10/23/23 11:23 [facility] [id number]) Gym Equipment Shuttle Recovery Unilateral Squats Details 37# (full range)-cues control Shuttle Recovery Platform Stable Reps/Time 10 Bilateral Squats Details full range cues for slow w/ eccentric Resistance 87# Shuttle Recovery Platform Stable Reps/Time 12 Therapeutic Exercises Standing Exercises stretch Standing Exercise Name quad w/foot on chair Side bilateral Reps/Minutes 1 min ea step down Standing Exercise Name cues for control Side bilateral Equipment Used 4 in Reps/Minutes 10 step up Standing Exercise Name to alt march Side bilateral Equipment Used 8 in Reps/Minutes 10 squat Standing Exercise Name chair behind-partial Side bilateral Equipment Used L2 band upper leon Reps/Minutes 15 Comments cues for sitting buttocks back Manual Therapy Treatment Soft Tissue Mobilization HS Body Location R med HS, gracilis Mobilization Type Rolling Intensity/Depth Moderate Joint Mobilizations tib fem Comments R AP tib w/IR FM PT-OP-T Assessment and Plan Start: 09/11/23 08:54 Freq: Status: Active Protocol: Document 10/23/23 10:46 [facility] (Rec: 10/23/23 11:23 [facility] [id number]) Physical Therapy Assessment Goals stability Whip Operator Goal (LTG) Pt will reports being able to get up at night and feels like he can trust his knees when walking. LTG Duration 12/17/23 activities Short Term Goal (STG) Pt will be able to go up/down stairs reciprocally w/o rail w /o knee pain or LBP 10/16/2023 Patient reportshaving no pain ascending and descending 6 inch stairs without rail. STG Duration 11/16/23 Retirement Goal (LTG) Pt will report being able to walk on any terrain w/o inc knee pain or LBP greater than 1/10. LTG Duration 12/17/23 strength Short Term Goal (STG) pt will improve LPM to at least 2/5 in all planes and be indep w/HEP STG Duration 11/07/23 Retirement Goal (LTG) Pt will score at least 3/5 on LPM and at least 4+/5 on B LE MMT to show improved strength and stability to allow greater ease with functional activties. LTG Duration 12/17/23 LEFS Impairment 41/80 Short Term Goal (STG) Pt will improve LEFS score to at least 50/80 to show improved functional ability. STG Duration 11/07/23 Whip Operator Goal (LTG) Pt will improve LEFS score to at least 50/80 to show improved functional ability. LTG Duration 12/17/23 Assessment Summary Assessment Pt had improved R knee ext w/o pain in ant knee after manual treatment today. Improved form w/exercises but cues still needed w/squats Physical Therapy Plan Frequency and Duration Frequency of Treatment 2x/Week Duration of treatment (weeks) 12 Plan of Care Start Date 09/24/23 Plan of Care End Date 12/17/23 Next Visit Focus/Plan Next Note Type Treatment Note Next Visit Plan cont to work on hip strength; work on knee tracking and manual to improve knee mobility cont to encourage HEP compliance
--- NOTE | 2023-10-27 10:33 | PT.OTN ---
Current Diagnoses Other chronic pain (10/27/23) Pain in right knee (10/27/23) Pain in left knee (10/27/23) Difficulty in walking, not elsewhere classified (10/27/23) Abnormal posture (10/27/23) Weakness (10/27/23) Physical Therapy Treatment Note PT-OP-A Visit Information Start: 09/11/23 08:54 Freq: Status: Active Protocol: Document 10/27/23 09:49 [facility] (Rec: 10/27/23 10:33 [facility] [id number]) Out-Patient Physical Therapy Visit Information Visit Information Visit Type Treatment Note Visit Note 05/18 Visit Start Time 09:50 Visit Stop Time 10:30 Visit Number 9 Number of PHYSICAL SCIENCES INSTRUCTOR Visits 0 PT-OP-B Current Condition Start: 09/11/23 08:54 Freq: Status: Active Protocol: Document 09/24/23 11:06 [facility] (Rec: 09/24/23 12:11 [facility] [id number]) Current Condition History of Current Condition Current Complaints B knee pain, LBP History of Current Condition Pt his history of back pain chronically and recent Parkinson's diagnosis and heart attack history. Pt reports he has B knee pain and the last couple of months they wake him up at night w/ sharp pain. When he gets up at night to go to the bathroom, he makes sure he holds onto something to see how the knees work before starting walking. Knees started to give pain in the past year. 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 Has to grab HR going down stairs now d/t worry about one of those sharp pains . LBP mostly lumbar and into SI for 10-15 year history w/no specific injury. worsened over the years. about 5 years ago, he was rebuilding a house and came out w/garbage can and fell down 2 steps and had to call a amy of his and had to use a 2x4 to use as a cane . He came here and was told he tore his meniscus. DOn't know what knee it was but it went away. He has doen this twice. Treatment Goals Patient/Caregiver Goals Be able to go down hills and stairs more comfortably, be able to get up at night trusting knees PT-OP-C Subjective Start: 09/11/23 08:54 Freq: Status: Active Protocol: Document 10/27/23 09:49 [facility] (Rec: 10/27/23 10:33 [facility] [id number]) OP-PT Subjective Patient Comments Patient Comments Pt has worked all weekend on his house. He spent a lot of time on his knees but they weren't sore. PT-OP-D Balance Start: 09/11/23 08:54 Freq: Status: Active Protocol: Document 09/24/23 11:06 [facility] (Rec: 09/24/23 12:11 [facility] [id number]) Balance Tests Single Limb Standing Single Limb- Right >30 sec lat w/lat lean Single Limb- Left >30sec w/lat lean PT-OP-F Manual Assessment Start: 09/11/23 08:54 Freq: Status: Active Protocol: Document 09/24/23 11:06 [facility] (Rec: 09/24/23 12:11 [facility] [id number]) Manual Assessments Soft Tissue Assessment Soft Tissue Mobility Assessment med jt line tendernes Joint Mobility Assessment Joint Mobility Assessment IR of B femurs and R tibia; all IR w/knee flex; L iliac crest higher, equal greater trochanters PT-OP-G Mobility & Gait Start: 09/11/23 08:54 Freq: Status: Active Protocol: Document 09/24/23 11:06 [facility] (Rec: 09/24/23 12:11 [facility] [id number]) OP Gait Assessment Comments Gait Comments lat lean w/wt acceptance on each LE, no RUE arm swing, L min arm swing, limited spine mobility PT-OP-J Posture/Palpation/Skin Start: 09/11/23 08:54 Freq: Status: Active Protocol: Document 09/24/23 11:06 [facility] (Rec: 09/24/23 12:11 [facility] [id number]) Posture Evaluation Darren Postural Classification System Lumbar Protective Mechanism Left AP 1 Lumbar Protective Mechanism Right AP 1 Lumbar Protective Mechanism Left PA 1 Lumbar Protective Mechanism Right PA 0 PT-OP-K Range of Motion Start: 09/11/23 08:54 Freq: Status: Active Protocol: Document 09/24/23 11:06 [facility] (Rec: 09/24/23 12:11 [facility] [id number]) Knee Goniometric Range of Motion Knee Right Flexion Active (degrees) 120 Extension Active (degrees) 2 Left Flexion Active (degrees) 116 Extension Active (degrees) 5 Comments discomfort w/flex PT-OP-L Special Tests Start: 09/11/23 08:54 Freq: Status: Active Protocol: Document 09/24/23 11:06 [facility] (Rec: 09/24/23 12:11 [facility] [id number]) Special Tests Knee Special Tests SLR Comments tightness in HS B (about equal tightness) Dulce Maria Test Comments pos L Thessaly Test 5 Degrees Comments Pos L Other Special Tests Special Tests 140/92 BP PT-OP-M Strength Start: 09/11/23 08:54 Freq: Status: Active Protocol: Document 09/24/23 11:06 [facility] (Rec: 09/24/23 12:11 [facility] [id number]) Hip Strength Hip Manual Muscle Testing Right Flexion (L2) 3+ Fair+ Extension (S1) 3+ Fair+ Abduction 4- Good- Adduction 4 Good External Rotation 3 Fair Internal Rotation 3+ Fair+ Left Flexion (L2) 3+ Fair+ Extension (S1) 4- Good- Abduction 4 Good Adduction 3+ Fair+ External Rotation 3 Fair Internal Rotation 3+ Fair+ Knee Strength Knee Manual Muscle Testing Right Flexion (S2) 4- Good- Extension (L3) 5 Normal Left Flexion (S2) 4 Good Ankle/Foot Strength Ankle and Foot Manual Muscle Testing Right Dorsiflexion (L4) 5 Normal Plantarflexion (S1) 5 Normal Left Dorsiflexion (L4) 5 Normal Plantarflexion (S1) 5 Normal Comments 20 heel raises B PT-OP-Q Treatments Start: 09/11/23 08:54 Freq: Status: Active Protocol: Document 10/27/23 09:49 [facility] (Rec: 10/27/23 10:33 [facility] [id number]) Therapeutic Exercises Standing Exercises lat step Standing Exercise Name up/down Side bilateral Equipment Used 6 in Reps/Minutes 10 ea Comments cues for control-more difficult on L stretch Standing Exercise Name quad w/foot on chair Side bilateral Reps/Minutes 1 min ea step down Standing Exercise Name cues for control Side bilateral Equipment Used 4 in Reps/Minutes 15 ea step up Standing Exercise Name to alt march Side bilateral Equipment Used 8 in Reps/Minutes 15 ea lateral lunge slides Standing Exercise Name trialed in PT Side bilateral Equipment Used slider under moving leg Reps/Minutes 8 ea Comments cued hip hinge- good full leg muscle tiring stationary lunges Standing Exercise Name trialed in PT Side bilateral Reps/Minutes 10 reps Comments cues for step length and alignment Manual Therapy Treatment Soft Tissue Mobilization HS Body Location L med HS, gracilis Mobilization Type Rolling Intensity/Depth Moderate quad Body Location L VL & patellar tendon Mobilization Type Rolling Intensity/Depth Moderate PT-OP-T Assessment and Plan Start: 09/11/23 08:54 Freq: Status: Active Protocol: Document 10/27/23 09:49 [facility] (Rec: 10/27/23 10:33 [facility] [id number]) Physical Therapy Assessment Goals stability Fdc Goal (LTG) Pt will reports being able to get up at night and feels like he can trust his knees when walking. LTG Duration 12/17/23 activities Short Term Goal (STG) Pt will be able to go up/down stairs reciprocally w/o rail w /o knee pain or LBP 10/16/2023 Patient reportshaving no pain ascending and descending 6 inch stairs without rail. STG Duration 11/16/23 Heat And Vent Aircraft Mechanic Goal (LTG) Pt will report being able to walk on any terrain w/o inc knee pain or LBP greater than 1/10. LTG Duration 12/17/23 strength Short Term Goal (STG) pt will improve LPM to at least 2/5 in all planes and be indep w/HEP STG Duration 11/07/23 Heat And Vent Aircraft Mechanic Goal (LTG) Pt will score at least 3/5 on LPM and at least 4+/5 on B LE MMT to show improved strength and stability to allow greater ease with functional activties. LTG Duration 12/17/23 LEFS Impairment 41/80 Short Term Goal (STG) Pt will improve LEFS score to at least 50/80 to show improved functional ability. STG Duration 11/07/23 Fdc Goal (LTG) Pt will improve LEFS score to at least 50/80 to show improved functional ability. LTG Duration 12/17/23 Assessment Summary Assessment Improved knee ext on L after mnaul treatment. Pt does well w/strength w/cues for control. he has more difficulty on LLE working on control w/decent. Physical Therapy Plan Frequency and Duration Frequency of Treatment 2x/Week Duration of treatment (weeks) 12 Plan of Care Start Date 09/24/23 Plan of Care End Date 12/17/23 Next Visit Focus/Plan Next Note Type Progress Note Next Visit Plan cont to work on hip strength; work on knee tracking and manual to improve knee mobility cont to encourage HEP compliance
--- NOTE | 2023-11-10 12:05 | PT.OTN ---
Current Diagnoses Other chronic pain (11/10/23) Pain in right knee (11/10/23) Pain in left knee (11/10/23) Difficulty in walking, not elsewhere classified (11/10/23) Abnormal posture (11/10/23) Weakness (11/10/23) Physical Therapy Treatment Note PT-OP-A Visit Information Start: 09/11/23 08:54 Freq: Status: Active Protocol: Document 11/10/23 11:17 [facility] (Rec: 11/10/23 12:05 [facility] [id number]) Out-Patient Physical Therapy Visit Information Visit Information Visit Type Progress Note Visit Note 09/17 Visit Start Time 11:20 Visit Stop Time 12:00 Visit Number 10 Number of CORE COMPOSER FEEDER Visits 0 PT-OP-B Current Condition Start: 09/11/23 08:54 Freq: Status: Active Protocol: Document 09/24/23 11:06 [facility] (Rec: 09/24/23 12:11 [facility] [id number]) Current Condition History of Current Condition Current Complaints B knee pain, LBP History of Current Condition Pt his history of back pain chronically and recent Parkinson's diagnosis and heart attack history. Pt reports he has B knee pain and the last couple of months they wake him up at night w/ sharp pain. When he gets up at night to go to the bathroom, he makes sure he holds onto something to see how the knees work before starting walking. Knees started to give pain in the past year. 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 Has to grab HR going down stairs now d/t worry about one of those sharp pains . LBP mostly lumbar and into SI for 10-15 year history w/no specific injury. worsened over the years. about 5 years ago, he was rebuilding a house and came out w/garbage can and fell down 2 steps and had to call a amy of his and had to use a 2x4 to use as a cane . He came here and was told he tore his meniscus. DOn't know what knee it was but it went away. He has doen this twice. Treatment Goals Patient/Caregiver Goals Be able to go down hills and stairs more comfortably, be able to get up at night trusting knees PT-OP-C Subjective Start: 09/11/23 08:54 Freq: Status: Active Protocol: Document 11/10/23 11:17 [facility] (Rec: 11/10/23 12:05 [facility] [id number]) OP-PT Subjective Patient Comments Patient Comments Pt had covid and notes he slept for about 5 days. notes there were 3 days were knees flared up. Doing better now that has recovered from COVID. has not done exrcises d/t COVID PT-OP-D Balance Start: 09/11/23 08:54 Freq: Status: Active Protocol: Document 09/24/23 11:06 [facility] (Rec: 09/24/23 12:11 [facility] [id number]) Balance Tests Single Limb Standing Single Limb- Right >30 sec lat w/lat lean Single Limb- Left >30sec w/lat lean PT-OP-F Manual Assessment Start: 09/11/23 08:54 Freq: Status: Active Protocol: Document 09/24/23 11:06 [facility] (Rec: 09/24/23 12:11 [facility] [id number]) Manual Assessments Soft Tissue Assessment Soft Tissue Mobility Assessment med jt line tendernes Joint Mobility Assessment Joint Mobility Assessment IR of B femurs and R tibia; all IR w/knee flex; L iliac crest higher, equal greater trochanters PT-OP-G Mobility & Gait Start: 09/11/23 08:54 Freq: Status: Active Protocol: Document 09/24/23 11:06 [facility] (Rec: 09/24/23 12:11 [facility] [id number]) OP Gait Assessment Comments Gait Comments lat lean w/wt acceptance on each LE, no RUE arm swing, L min arm swing, limited spine mobility PT-OP-J Posture/Palpation/Skin Start: 09/11/23 08:54 Freq: Status: Active Protocol: Document 11/10/23 11:17 [facility] (Rec: 11/10/23 12:05 [facility] [id number]) Posture Evaluation Darren Postural Classification System Lumbar Protective Mechanism Left AP 2 Lumbar Protective Mechanism Right AP 2 Lumbar Protective Mechanism Left PA 3 Lumbar Protective Mechanism Right PA 1 PT-OP-K Range of Motion Start: 09/11/23 08:54 Freq: Status: Active Protocol: Document 09/24/23 11:06 [facility] (Rec: 09/24/23 12:11 [facility] [id number]) Knee Goniometric Range of Motion Knee Right Flexion Active (degrees) 120 Extension Active (degrees) 2 Left Flexion Active (degrees) 116 Extension Active (degrees) 5 Comments discomfort w/flex PT-OP-L Special Tests Start: 09/11/23 08:54 Freq: Status: Active Protocol: Document 09/24/23 11:06 [facility] (Rec: 09/24/23 12:11 [facility] [id number]) Special Tests Knee Special Tests SLR Comments tightness in HS B (about equal tightness) Dulce Maria Test Comments pos L Thessaly Test 5 Degrees Comments Pos L Other Special Tests Special Tests 140/92 BP PT-OP-M Strength Start: 09/11/23 08:54 Freq: Status: Active Protocol: Document 11/10/23 11:17 [facility] (Rec: 11/10/23 12:05 [facility] [id number]) Hip Strength Hip Manual Muscle Testing Right Flexion (L2) 3+ Fair+ Extension (S1) 4 Good Abduction 5 Normal Adduction 4+ Good+ External Rotation 4 Good Internal Rotation 4+ Good+ Left Flexion (L2) 4 Good Extension (S1) 4 Good Abduction 4 Good Adduction 4- Good- External Rotation 4 Good Internal Rotation 4+ Good+ Knee Strength Knee Manual Muscle Testing Right Flexion (S2) 4+ Good+ Extension (L3) 5 Normal Left Flexion (S2) 4+ Good+ Extension (L3) 5 Normal Ankle/Foot Strength Ankle and Foot Manual Muscle Testing Right Dorsiflexion (L4) 5 Normal Plantarflexion (S1) 5 Normal Left Dorsiflexion (L4) 5 Normal Plantarflexion (S1) 5 Normal Comments 20 heel raises B PT-OP-Q Treatments Start: 09/11/23 08:54 Freq: Status: Active Protocol: Document 11/10/23 11:17 [facility] (Rec: 11/10/23 12:05 [facility] [id number]) Therapeutic Exercises Standing Exercises lat step Standing Exercise Name up/down Side bilateral Equipment Used 6 in Reps/Minutes 10 ea Comments cues for control-more difficult on L step down Standing Exercise Name cues for control Side bilateral Equipment Used 4 in Reps/Minutes 10 ea step up Standing Exercise Name to alt march Side bilateral Equipment Used 8 in Reps/Minutes 15 ea squat Standing Exercise Name chair behind-partial Side bilateral Equipment Used L2 band upper leon Reps/Minutes 15 Comments cues for sitting buttocks back sidesteps Side bilateral Equipment Used L2 at ankles Reps/Minutes 25ft ea Comments cues for upright posture Other Exercises isometrics Other Exercise Name MMT LEs and LPM B Side bilateral Manual Therapy Treatment Soft Tissue Mobilization ITB Body Location R Mobilization Type Rolling Intensity/Depth Moderate Body Position Hooklying HS Body Location L med HS, gracilis Mobilization Type Rolling Intensity/Depth Moderate Comments w/knee flex Joint Mobilizations tib fem Comments L PA FM PT-OP-T Assessment and Plan Start: 09/11/23 08:54 Freq: Status: Active Protocol: Document 11/10/23 11:17 [facility] (Rec: 11/10/23 12:05 [facility] [id number]) Physical Therapy Assessment Goals stability Snf Goal (LTG) Pt will reports being able to get up at night and feels like he can trust his knees when walking. 3/4-can sleep through the night w/o inc pain; has felt fine LTG Duration 12/17/23 activities Short Term Goal (STG) Pt will be able to go up/down stairs reciprocally w/o rail w /o knee pain or LBP 10/16/2023 Patient reportshaving no pain ascending and descending 6 inch stairs without rail. STG Duration achieved 11/09 Glue Mill Operator Goal (LTG) Pt will report being able to walk on any terrain w/o inc knee pain or LBP greater than /10. 34-has not been walking much d/t covid reecntly LTG Duration 12/17/23 strength Short Term Goal (STG) pt will improve LPM to at least 2/5 in all planes and be indep w/HEP 3-improved STG Duration 11/07/23 Snf Goal (LTG) Pt will score at least 3/5 on LPM and at least 4+/5 on B LE MMT to show improved strength and stability to allow greater ease with functional activties. 3-improved LTG Duration 12/17/23 LEFS Impairment 41/80 Short Term Goal (STG) Pt will improve LEFS score to at least 50/80 to show improved functional ability. STG Duration achieved to 51/80 11/09 Glue Mill Operator Goal (LTG) Pt will improve LEFS score to at least 60/80 to show improved functional ability. LTG Duration 12/17/23 Assessment Summary Assessment Pt is showing much improved progress with strength and stability along w/symptoms improved w/PT. Some back track during COVID recently. He does still require cues for control w/doing exercises in clinic. Cont PT to dec LB and knee symptoms and improve pt strength and functional mobility Physical Therapy Plan Frequency and Duration Frequency of Treatment 2x/Week Duration of treatment (weeks) 12 Plan of Care Start Date 09/24/23 Plan of Care End Date 12/17/23 Next Visit Focus/Plan Next Note Type Treatment Note Next Visit Plan cont to work on hip strength; work on knee tracking and manual to improve knee mobility cont to encourage HEP compliance
--- NOTE | 2023-11-17 12:09 | PT.OTN ---
Current Diagnoses Other chronic pain (11/17/23) Pain in right knee (11/17/23) Pain in left knee (11/17/23) Difficulty in walking, not elsewhere classified (11/17/23) Abnormal posture (11/17/23) Weakness (11/17/23) Physical Therapy Treatment Note PT-OP-A Visit Information Start: 09/11/23 08:54 Freq: Status: Active Protocol: Document 11/17/23 10:56 [facility] (Rec: 11/17/23 12:09 [facility] [id number]) Out-Patient Physical Therapy Visit Information Visit Information Visit Type Treatment Note Visit Note 10/18 Visit Start Time 11:20 Visit Stop Time 12:00 Visit Number 11 Number of SAUSAGE LINKER Visits 0 PT-OP-B Current Condition Start: 09/11/23 08:54 Freq: Status: Active Protocol: Document 09/24/23 11:06 [facility] (Rec: 09/24/23 12:11 [facility] [id number]) Current Condition History of Current Condition Current Complaints B knee pain, LBP History of Current Condition Pt his history of back pain chronically and recent Parkinson's diagnosis and heart attack history. Pt reports he has B knee pain and the last couple of months they wake him up at night w/ sharp pain. When he gets up at night to go to the bathroom, he makes sure he holds onto something to see how the knees work before starting walking. Knees started to give pain in the past year. 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 Has to grab HR going down stairs now d/t worry about one of those sharp pains . LBP mostly lumbar and into SI for 10-15 year history w/no specific injury. worsened over the years. about 5 years ago, he was rebuilding a house and came out w/garbage can and fell down 2 steps and had to call a amy of his and had to use a 2x4 to use as a cane . He came here and was told he tore his meniscus. DOn't know what knee it was but it went away. He has doen this twice. Treatment Goals Patient/Caregiver Goals Be able to go down hills and stairs more comfortably, be able to get up at night trusting knees PT-OP-C Subjective Start: 09/11/23 08:54 Freq: Status: Active Protocol: Document 11/17/23 10:56 [facility] (Rec: 11/17/23 12:09 [facility] [id number]) OP-PT Subjective Patient Comments Patient Comments Pt woke up w/pain in L one last night. He has been on his knees a lot to work on his house w/knee pads but getting down and being down does inc pain PT-OP-D Balance Start: 09/11/23 08:54 Freq: Status: Active Protocol: Document 09/24/23 11:06 [facility] (Rec: 09/24/23 12:11 [facility] [id number]) Balance Tests Single Limb Standing Single Limb- Right >30 sec lat w/lat lean Single Limb- Left >30sec w/lat lean PT-OP-F Manual Assessment Start: 09/11/23 08:54 Freq: Status: Active Protocol: Document 09/24/23 11:06 [facility] (Rec: 09/24/23 12:11 [facility] [id number]) Manual Assessments Soft Tissue Assessment Soft Tissue Mobility Assessment med jt line tendernes Joint Mobility Assessment Joint Mobility Assessment IR of B femurs and R tibia; all IR w/knee flex; L iliac crest higher, equal greater trochanters PT-OP-G Mobility & Gait Start: 09/11/23 08:54 Freq: Status: Active Protocol: Document 09/24/23 11:06 [facility] (Rec: 09/24/23 12:11 [facility] [id number]) OP Gait Assessment Comments Gait Comments lat lean w/wt acceptance on each LE, no RUE arm swing, L min arm swing, limited spine mobility PT-OP-J Posture/Palpation/Skin Start: 09/11/23 08:54 Freq: Status: Active Protocol: Document 11/10/23 11:17 [facility] (Rec: 11/10/23 12:05 [facility] [id number]) Posture Evaluation [facility] Postural Classification System Lumbar Protective Mechanism Left AP 2 Lumbar Protective Mechanism Right AP 2 Lumbar Protective Mechanism Left PA 3 Lumbar Protective Mechanism Right PA 1 PT-OP-K Range of Motion Start: 09/11/23 08:54 Freq: Status: Active Protocol: Document 09/24/23 11:06 [facility] (Rec: 09/24/23 12:11 [facility] [id number]) Knee Goniometric Range of Motion Knee Right Flexion Active (degrees) 120 Extension Active (degrees) 2 Left Flexion Active (degrees) 116 Extension Active (degrees) 5 Comments discomfort w/flex PT-OP-L Special Tests Start: 09/11/23 08:54 Freq: Status: Active Protocol: Document 09/24/23 11:06 [facility] (Rec: 09/24/23 12:11 [facility] [id number]) Special Tests Knee Special Tests SLR Comments tightness in HS B (about equal tightness) Dulce Maria Test Comments pos L Thessaly Test 5 Degrees Comments Pos L Other Special Tests Special Tests 140/92 BP PT-OP-M Strength Start: 09/11/23 08:54 Freq: Status: Active Protocol: Document 11/10/23 11:17 [facility] (Rec: 11/10/23 12:05 [facility] [id number]) Hip Strength Hip Manual Muscle Testing Right Flexion (L2) 3+ Fair+ Extension (S1) 4 Good Abduction 5 Normal Adduction 4+ Good+ External Rotation 4 Good Internal Rotation 4+ Good+ Left Flexion (L2) 4 Good Extension (S1) 4 Good Abduction 4 Good Adduction 4- Good- External Rotation 4 Good Internal Rotation 4+ Good+ Knee Strength Knee Manual Muscle Testing Right Flexion (S2) 4+ Good+ Extension (L3) 5 Normal Left Flexion (S2) 4+ Good+ Extension (L3) 5 Normal Ankle/Foot Strength Ankle and Foot Manual Muscle Testing Right Dorsiflexion (L4) 5 Normal Plantarflexion (S1) 5 Normal Left Dorsiflexion (L4) 5 Normal Plantarflexion (S1) 5 Normal Comments 20 heel raises B PT-OP-Q Treatments Start: 09/11/23 08:54 Freq: Status: Active Protocol: Document 11/17/23 10:56 [facility] (Rec: 11/17/23 12:09 [facility] [id number]) Therapeutic Exercises Standing Exercises lat step Standing Exercise Name up/down Side bilateral Equipment Used 6 in Reps/Minutes 15 ea Comments cues for control-more difficult on L step down Standing Exercise Name cues for control Side bilateral Equipment Used 4 in Reps/Minutes 8 ea step up Standing Exercise Name to alt march Side bilateral Equipment Used 8 in Reps/Minutes 15 ea Manual Therapy Treatment Soft Tissue Mobilization HS Body Location L med HS, popliteus, plantaris and gastroc Mobilization Type Rolling Intensity/Depth Moderate Comments w/knee flex Joint Mobilizations tibfib Joint PA L FM tib fem Comments L PA FM w/IR Neuro Re-Education Treatment Balance Activities bosu Comments 1. DL balance blue and black side 2. squat black and blue side x10 ea PT-OP-T Assessment and Plan Start: 09/11/23 08:54 Freq: Status: Active Protocol: Document 11/17/23 10:56 [facility] (Rec: 11/17/23 12:09 [facility] [id number]) Physical Therapy Assessment Goals stability [facility] Goal (LTG) Pt will reports being able to get up at night and feels like he can trust his knees when walking. 3/4-can sleep through the night w/o inc pain; has felt fine LTG Duration 12/17/23 activities Short Term Goal (STG) Pt will be able to go up/down stairs reciprocally w/o rail w /o knee pain or LBP 10/16/2023 Patient reportshaving no pain ascending and descending 6 inch stairs without rail. STG Duration achieved 11/09 [facility] Goal (LTG) Pt will report being able to walk on any terrain w/o inc knee pain or LBP greater than /. 3/4-has not been walking much d/t covid reecntly LTG Duration 12/17/23 strength Short Term Goal (STG) pt will improve LPM to at least 2/5 in all planes and be indep w/HEP 3/4-improved STG Duration 11/07/23 [facility] Goal (LTG) Pt will score at least 3/5 on LPM and at least 4+/5 on B LE MMT to show improved strength and stability to allow greater ease with functional activties. 3/4-improved LTG Duration 12/17/23 LEFS Impairment 41/80 Short Term Goal (STG) Pt will improve LEFS score to at least 50/80 to show improved functional ability. STG Duration achieved to 51/80 3 [facility] Goal (LTG) Pt will improve LEFS score to at least 60/80 to show improved functional ability. LTG Duration 12/17/23 Assessment Summary Assessment pt had [facility] improved knee flex w/manual treatment and reported dec pain after. He did note some pain in L knee w /step downs and after squats on bosu. Physical Therapy Plan Frequency and Duration Frequency of Treatment 2x/Week Duration of treatment (weeks) 12 Plan of Care Start Date 09/24/23 Plan of Care End Date 12/17/23 Next Visit Focus/Plan Next Note Type Treatment Note Next Visit Plan cont to work on hip strength; work on knee tracking and manual to improve knee mobility cont to encourage HEP compliance
--- NOTE | 2023-11-25 14:31 | PT.OTN ---
Current Diagnoses Other chronic pain (11/25/23) Pain in right knee (11/25/23) Pain in left knee (11/25/23) Difficulty in walking, not elsewhere classified (11/25/23) Abnormal posture (11/25/23) Weakness (11/25/23) Physical Therapy Treatment Note PT-OP-A Visit Information Start: 09/11/23 08:54 Freq: Status: Active Protocol: Document 11/25/23 09:45 [facility] (Rec: 11/25/23 14:31 [facility] [id number]) Out-Patient Physical Therapy Visit Information Visit Information Visit Type Treatment Note Visit Note 11/15 Visit Start Time 11:23 Visit Stop Time 12:01 Visit Number 12 Number of ACTION FINISHER Visits 0 PT-OP-B Current Condition Start: 09/11/23 08:54 Freq: Status: Active Protocol: Document 09/24/23 11:06 [facility] (Rec: 09/24/23 12:11 [facility] [id number]) Current Condition History of Current Condition Current Complaints B knee pain, LBP History of Current Condition Pt his history of back pain chronically and recent Parkinson's diagnosis and heart attack history. Pt reports he has B knee pain and the last couple of months they wake him up at night w/ sharp pain. When he gets up at night to go to the bathroom, he makes sure he holds onto something to see how the knees work before starting walking. Knees started to give pain in the past year. 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 Has to grab HR going down stairs now d/t worry about one of those sharp pains . LBP mostly lumbar and into SI for 10-15 year history w/no specific injury. worsened over the years. about 5 years ago, he was rebuilding a house and came out w/garbage can and fell down 2 steps and had to call a amy of his and had to use a 2x4 to use as a cane . He came here and was told he tore his meniscus. DOn't know what knee it was but it went away. He has doen this twice. Treatment Goals Patient/Caregiver Goals Be able to go down hills and stairs more comfortably, be able to get up at night trusting knees PT-OP-C Subjective Start: 09/11/23 08:54 Freq: Status: Active Protocol: Document 11/25/23 09:45 [facility] (Rec: 11/25/23 14:31 [facility] [id number]) OP-PT Subjective Patient Comments Patient Comments Pt reports noticed L knee pain when descending stairs. PT-OP-D Balance Start: 09/11/23 08:54 Freq: Status: Active Protocol: Document 09/24/23 11:06 [facility] (Rec: 09/24/23 12:11 [facility] [id number]) Balance Tests Single Limb Standing Single Limb- Right >30 sec lat w/lat lean Single Limb- Left >30sec w/lat lean PT-OP-F Manual Assessment Start: 09/11/23 08:54 Freq: Status: Active Protocol: Document 09/24/23 11:06 [facility] (Rec: 09/24/23 12:11 [facility] [id number]) Manual Assessments Soft Tissue Assessment Soft Tissue Mobility Assessment med jt line tendernes Joint Mobility Assessment Joint Mobility Assessment IR of B femurs and R tibia; all IR w/knee flex; L iliac crest higher, equal greater trochanters PT-OP-G Mobility & Gait Start: 09/11/23 08:54 Freq: Status: Active Protocol: Document 09/24/23 11:06 [facility] (Rec: 09/24/23 12:11 [facility] [id number]) OP Gait Assessment Comments Gait Comments lat lean w/wt acceptance on each LE, no RUE arm swing, L min arm swing, limited spine mobility PT-OP-J Posture/Palpation/Skin Start: 09/11/23 08:54 Freq: Status: Active Protocol: Document 11/10/23 11:17 [facility] (Rec: 11/10/23 12:05 [facility] [id number]) Posture Evaluation [facility] Postural Classification System Lumbar Protective Mechanism Left AP 2 Lumbar Protective Mechanism Right AP 2 Lumbar Protective Mechanism Left PA 3 Lumbar Protective Mechanism Right PA 1 PT-OP-K Range of Motion Start: 09/11/23 08:54 Freq: Status: Active Protocol: Document 09/24/23 11:06 [facility] (Rec: 09/24/23 12:11 [facility] [id number]) Knee Goniometric Range of Motion Knee Right Flexion Active (degrees) 120 Extension Active (degrees) 2 Left Flexion Active (degrees) 116 Extension Active (degrees) 5 Comments discomfort w/flex PT-OP-L Special Tests Start: 09/11/23 08:54 Freq: Status: Active Protocol: Document 09/24/23 11:06 [facility] (Rec: 09/24/23 12:11 [facility] [id number]) Special Tests Knee Special Tests SLR Comments tightness in HS B (about equal tightness) Dulce Maria Test Comments pos L Thessaly Test 5 Degrees Comments Pos L Other Special Tests Special Tests 140/92 BP PT-OP-M Strength Start: 09/11/23 08:54 Freq: Status: Active Protocol: Document 11/10/23 11:17 [facility] (Rec: 11/10/23 12:05 [facility] [id number]) Hip Strength Hip Manual Muscle Testing Right Flexion (L2) 3+ Fair+ Extension (S1) 4 Good Abduction 5 Normal Adduction 4+ Good+ External Rotation 4 Good Internal Rotation 4+ Good+ Left Flexion (L2) 4 Good Extension (S1) 4 Good Abduction 4 Good Adduction 4- Good- External Rotation 4 Good Internal Rotation 4+ Good+ Knee Strength Knee Manual Muscle Testing Right Flexion (S2) 4+ Good+ Extension (L3) 5 Normal Left Flexion (S2) 4+ Good+ Extension (L3) 5 Normal Ankle/Foot Strength Ankle and Foot Manual Muscle Testing Right Dorsiflexion (L4) 5 Normal Plantarflexion (S1) 5 Normal Left Dorsiflexion (L4) 5 Normal Plantarflexion (S1) 5 Normal Comments 20 heel raises B PT-OP-Q Treatments Start: 09/11/23 08:54 Freq: Status: Active Protocol: Document 11/25/23 09:45 [facility] (Rec: 11/25/23 14:31 [facility] [id number]) Therapeutic Exercises Standing Exercises lat step Standing Exercise Name up/down Side bilateral Equipment Used 6 in Reps/Minutes 15 ea Comments cues for control-more difficult on L step down Standing Exercise Name cues for control Side bilateral Equipment Used 4 in Reps/Minutes 8 ea step up Standing Exercise Name to alt march Side bilateral Equipment Used 8 in Reps/Minutes 15 ea Manual Therapy Treatment Soft Tissue Mobilization ITB Body Location L Mobilization Type Rolling Intensity/Depth Moderate Body Position Hooklying Comments w/IR quad Body Location L quad tendon Mobilization Type Rolling Joint Mobilizations tibfib Joint PA L FM tib fem Comments L PA FM w/IR Self-Care/Home Management Treatment Education Other Education 8 min: discussed w/pt importance of inc water intake along w/HEP; edu that even w/ injection exercise will be important for his knee health. PT-OP-T Assessment and Plan Start: 09/11/23 08:54 Freq: Status: Active Protocol: Document 11/25/23 09:45 [facility] (Rec: 11/25/23 14:31 [facility] [id number]) Physical Therapy Assessment Goals stability Detention Goal (LTG) Pt will reports being able to get up at night and feels like he can trust his knees when walking. 3/4-can sleep through the night w/o inc pain; has felt fine LTG Duration 12/17/23 activities Short Term Goal (STG) Pt will be able to go up/down stairs reciprocally w/o rail w /o knee pain or LBP 10/16/2023 Patient reportshaving no pain ascending and descending 6 inch stairs without rail. STG Duration achieved 11/09 [employer] Goal (LTG) Pt will report being able to walk on any terrain w/o inc knee pain or LBP greater than /10. 3/4-has not been walking much d/t covid reecntly LTG Duration 12/17/23 strength Short Term Goal (STG) pt will improve LPM to at least 2/5 in all planes and be indep w/HEP 3-improved STG Duration 11/07/23 Detention Goal (LTG) Pt will score at least 3/5 on LPM and at least 4+/5 on B LE MMT to show improved strength and stability to allow greater ease with functional activties. 3-improved LTG Duration 12/17/23 LEFS Impairment 41/80 Short Term Goal (STG) Pt will improve LEFS score to at least 50/80 to show improved functional ability. STG Duration achieved to 51/80 11/09 Detention Goal (LTG) Pt will improve LEFS score to at least 60/80 to show improved functional ability. LTG Duration 12/17/23 Assessment Summary Assessment Pt did well with exercises w/ no c/o pain today. Encouraged to be performing exercises at home also. Improved knee flex w/manual Physical Therapy Plan Frequency and Duration Frequency of Treatment 2x/Week Duration of treatment (weeks) 12 Plan of Care Start Date 09/24/23 Plan of Care End Date 12/17/23 Next Visit Focus/Plan Next Note Type Treatment Note Next Visit Plan cont to work on hip strength; work on knee tracking and manual to improve knee mobility cont to encourage HEP compliance
--- NOTE | 2023-11-27 12:15 | PT.OTN ---
Current Diagnoses Other chronic pain (11/27/23) Pain in right knee (11/27/23) Pain in left knee (11/27/23) Difficulty in walking, not elsewhere classified (11/27/23) Abnormal posture (11/27/23) Weakness (11/27/23) Physical Therapy Treatment Note PT-OP-A Visit Information Start: 09/11/23 08:54 Freq: Status: Active Protocol: Document 11/27/23 11:22 [facility] (Rec: 11/27/23 12:14 [facility] [id number]) Out-Patient Physical Therapy Visit Information Visit Information Visit Type Treatment Note Visit Note 12/16 Visit Start Time 11:20 Visit Stop Time 12:00 Visit Number 13 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 Pt reports he has B knee pain and the last couple of months they wake him up at night w/ sharp pain. When he gets up at night to go to the bathroom, he makes sure he holds onto something to see how the knees work before starting walking. Knees started to give pain in the past year. 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 Has to grab HR going down stairs now d/t worry about one of those sharp pains . LBP mostly lumbar and into SI for 10-15 year history w/no specific injury. worsened over the years. about 5 years ago, he was rebuilding a house and came out w/garbage can and fell down 2 steps and had to call a amy of his and had to use a 2x4 to use as a cane . He came here and was told he tore his meniscus. DOn't know what knee it was but it went away. He has doen this twice. Treatment Goals Patient/Caregiver Goals Be able to go down hills and stairs more comfortably, be able to get up at night trusting knees PT-OP-C Subjective Start: 09/11/23 08:54 Freq: Status: Active Protocol: Document 11/27/23 11:22 [facility] (Rec: 11/27/23 12:14 [facility] [id number]) OP-PT Subjective Patient Comments Patient Comments Pt reports walking a lot yesterday and L knee bothered him that night. It wasn't uncomfortable when walking. [place] moved [place]. Pain woke him up a couple times. R side been feeling okay. PT-OP-D Balance Start: 09/11/23 08:54 Freq: Status: Active Protocol: Document 09/24/23 11:06 [facility] (Rec: 09/24/23 12:11 [facility] [id number]) Balance Tests Single Limb Standing Single Limb- Right >30 sec lat w/lat lean Single Limb- Left >30sec w/lat lean PT-OP-F Manual Assessment Start: 09/11/23 08:54 Freq: Status: Active Protocol: Document 09/24/23 11:06 [facility] (Rec: 09/24/23 12:11 [facility] [id number]) Manual Assessments Soft Tissue Assessment Soft Tissue Mobility Assessment med jt line tendernes Joint Mobility Assessment Joint Mobility Assessment IR of B femurs and R tibia; all IR w/knee flex; L iliac crest higher, equal greater trochanters PT-OP-G Mobility & Gait Start: 09/11/23 08:54 Freq: Status: Active Protocol: Document 09/24/23 11:06 [facility] (Rec: 09/24/23 12:11 [facility] [id number]) OP Gait Assessment Comments Gait Comments lat lean w/wt acceptance on each LE, no RUE arm swing, L min arm swing, limited spine mobility PT-OP-J Posture/Palpation/Skin Start: 09/11/23 08:54 Freq: Status: Active Protocol: Document 11/10/23 11:17 [facility] (Rec: 11/10/23 12:05 [facility] [id number]) Posture Evaluation [facility] Postural Classification System Lumbar Protective Mechanism Left AP 2 Lumbar Protective Mechanism Right AP 2 Lumbar Protective Mechanism Left PA 3 Lumbar Protective Mechanism Right PA 1 PT-OP-K Range of Motion Start: 09/11/23 08:54 Freq: Status: Active Protocol: Document 09/24/23 11:06 [facility] (Rec: 09/24/23 12:11 [facility] [id number]) Knee Goniometric Range of Motion Knee Right Flexion Active (degrees) 120 Extension Active (degrees) 2 Left Flexion Active (degrees) 116 Extension Active (degrees) 5 Comments discomfort w/flex PT-OP-L Special Tests Start: 09/11/23 08:54 Freq: Status: Active Protocol: Document 09/24/23 11:06 [facility] (Rec: 09/24/23 12:11 [facility] [id number]) Special Tests Knee Special Tests SLR Comments tightness in HS B (about equal tightness) Dulce Maria Test Comments pos L Thessaly Test 5 Degrees Comments Pos L Other Special Tests Special Tests 140/92 BP PT-OP-M Strength Start: 09/11/23 08:54 Freq: Status: Active Protocol: Document 11/10/23 11:17 [facility] (Rec: 11/10/23 12:05 [facility] [id number]) Hip Strength Hip Manual Muscle Testing Right Flexion (L2) 3+ Fair+ Extension (S1) 4 Good Abduction 5 Normal Adduction 4+ Good+ External Rotation 4 Good Internal Rotation 4+ Good+ Left Flexion (L2) 4 Good Extension (S1) 4 Good Abduction 4 Good Adduction 4- Good- External Rotation 4 Good Internal Rotation 4+ Good+ Knee Strength Knee Manual Muscle Testing Right Flexion (S2) 4+ Good+ Extension (L3) 5 Normal Left Flexion (S2) 4+ Good+ Extension (L3) 5 Normal Ankle/Foot Strength Ankle and Foot Manual Muscle Testing Right Dorsiflexion (L4) 5 Normal Plantarflexion (S1) 5 Normal Left Dorsiflexion (L4) 5 Normal Plantarflexion (S1) 5 Normal Comments 20 heel raises B PT-OP-Q Treatments Start: 09/11/23 08:54 Freq: Status: Active Protocol: Document 11/27/23 11:22 [facility] (Rec: 11/27/23 12:14 [facility] [id number]) Gym Equipment Shuttle Balance Red Clips Comments fwd: WBOS, NBOS & staggered stance B side: WBOS & NBOS Therapeutic Exercises Supine Exercises lower trunk rotation Side bilateral Reps/Minutes 30 sec hold stretch Supine Exercise Name 1. active HS 2.Bjorn stretch EOB Side bilateral Reps/Minutes 1.6x6 sec 2. 60 sec ea Comments good feedback stretch and increased R hip ROM Standing Exercises step up Standing Exercise Name to alt march Side bilateral Equipment Used 8 in Reps/Minutes 15 ea squat Standing Exercise Name partial comfortable rnage Side bilateral Reps/Minutes 15 Comments cues for sitting buttocks back Manual Therapy Treatment Soft Tissue Mobilization ITB Body Location L Mobilization Type Rolling Intensity/Depth Moderate Body Position Hooklying Joint Mobilizations PF Joint L sup, med inf tib fem Comments L PA FM w/IR R AP tib FM Neuro Re-Education Treatment Balance Activities bosu Comments 1. DL balance w/EC and head turns 2. squats blue side partial x12 Self-Care/Home Management Treatment Education Other Education 7 min: discussed doign smaller walks like .5 mile a few days a week and slowly building; edu on importance of strength and balance PT-OP-T Assessment and Plan Start: 09/11/23 08:54 Freq: Status: Active Protocol: Document 11/27/23 11:22 [facility] (Rec: 11/27/23 12:14 [facility] [id number]) Physical Therapy Assessment Goals stability Skilled Nursing Goal (LTG) Pt will reports being able to get up at night and feels like he can trust his knees when walking. 3/4-can sleep through the night w/o inc pain; has felt fine LTG Duration 12/17/23 activities Short Term Goal (STG) Pt will be able to go up/down stairs reciprocally w/o rail w /o knee pain or LBP 10/16/2023 Patient reportshaving no pain ascending and descending 6 inch stairs without rail. STG Duration achieved 3 Skilled Nursing Goal (LTG) Pt will report being able to walk on any terrain w/o inc knee pain or LBP greater than 09/17. 3/4-has not been walking much d/t covid reecntly LTG Duration 12/17/23 strength Short Term Goal (STG) pt will improve LPM to at least 2/5 in all planes and be indep w/HEP 3/4-improved STG Duration 11/07/23 Skilled Nursing Goal (LTG) Pt will score at least 3/5 on LPM and at least 4+/5 on B LE MMT to show improved strength and stability to allow greater ease with functional activties. 3/4-improved LTG Duration 12/17/23 LEFS Impairment 41/80 Short Term Goal (STG) Pt will improve LEFS score to at least 50/80 to show improved functional ability. STG Duration achieved to 51/80 11/09 Skilled Nursing Goal (LTG) Pt will improve LEFS score to at least 60/80 to show improved functional ability. LTG Duration 12/17/23 Assessment Summary Assessment Pt improved L knee flex w/ mobilziations. Encouraged pt to start doing small walks and working his way uop and importance of balance. Pt would benefit from cont PT and will see MD tomorrow and wants to wait to schedule further until talking to doctor. Physical Therapy Plan Frequency and Duration Frequency of Treatment 2x/Week Duration of treatment (weeks) 12 Plan of Care Start Date 09/24/23 Plan of Care End Date 12/17/23 Next Visit Focus/Plan Next Note Type Treatment Note Next Visit Plan cont to work on hip strength; work on knee tracking and manual to improve knee mobility cont to encourage HEP compliance
--- NOTE | 2024-02-09 08:06 | PT.OPDS ---
Current Diagnoses Other chronic pain (11/27/23) Pain in right knee (11/27/23) Pain in left knee (11/27/23) Difficulty in walking, not elsewhere classified (11/27/23) Abnormal posture (11/27/23) Weakness (11/27/23) Visit Care Team Role Provider Type Domenic Patterson MD Attending Provider Physician Family Provider Primary Care Provider Referring Provider Specialty: Family Practice Address: [address] [place] [address], [facility] Email: [email or web address] Visit Number Visit Number 13 Discharge Summary PT-OP-B Current Condition Start: 09/11/23 08:54 Freq: Status: Active Protocol: Document 09/24/23 11:06 [facility] (Rec: 09/24/23 12:11 [facility] [id number]) Current Condition History of Current Condition Current Complaints B knee pain, LBP History of Current Condition Pt his history of back pain chronically and recent Parkinson's diagnosis and heart attack history. Pt reports he has B knee pain and the last couple of months they wake him up at night w/ sharp pain. When he gets up at night to go to the bathroom, he makes sure he holds onto something to see how the knees work before starting walking. Knees started to give pain in the past year. 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 Has to grab HR going down stairs now d/t worry about one of those sharp pains . LBP mostly lumbar and into SI for 10-15 year history w/no specific injury. worsened over the years. about 5 years ago, he was rebuilding a house and came out w/garbage can and fell down 2 steps and had to call a amy of his and had to use a 2x4 to use as a cane . He came here and was told he tore his meniscus. DOn't know what knee it was but it went away. He has doen this twice. Treatment Goals Patient/Caregiver Goals Be able to go down hills and stairs more comfortably, be able to get up at night trusting knees PT-OP-C Subjective Start: 01/04/24 08:54 Freq: Status: Active Protocol: Document 11/27/23 11:22 [facility] (Rec: 11/27/23 12:14 [facility] [id number]) OP-PT Subjective Patient Comments Patient Comments Pt reports walking a lot yesterday and L knee bothered him that night. It wasn't uncomfortable when walking. [place] He moved [place]. Pain woke him up a couple times. R side been feeling okay. PT-OP-D Balance Start: 09/11/23 08:54 Freq: Status: Active Protocol: Document 09/24/23 11:06 [facility] (Rec: 09/24/23 12:11 [facility] [id number]) Balance Tests Single Limb Standing Single Limb- Right >30 sec lat w/lat lean Single Limb- Left >30sec w/lat lean PT-OP-F Manual Assessment Start: 09/11/23 08:54 Freq: Status: Active Protocol: Document 09/24/23 11:06 [facility] (Rec: 09/24/23 12:11 [facility] [id number]) Manual Assessments Soft Tissue Assessment Soft Tissue Mobility Assessment med jt line tendernes Joint Mobility Assessment Joint Mobility Assessment IR of B femurs and R tibia; all IR w/knee flex; L iliac crest higher, equal greater trochanters PT-OP-G Mobility & Gait Start: 09/11/23 08:54 Freq: Status: Active Protocol: Document 09/24/23 11:06 [facility] (Rec: 09/24/23 12:11 [facility] [id number]) OP Gait Assessment Comments Gait Comments lat lean w/wt acceptance on each LE, no RUE arm swing, L min arm swing, limited spine mobility PT-OP-J Posture/Palpation/Skin Start: 09/11/23 08:54 Freq: Status: Active Protocol: Document 11/10/23 11:17 [facility] (Rec: 11/10/23 12:05 [facility] [id number]) Posture Evaluation [facility] Postural Classification System Lumbar Protective Mechanism Left AP 2 Lumbar Protective Mechanism Right AP 2 Lumbar Protective Mechanism Left PA 3 Lumbar Protective Mechanism Right PA 1 PT-OP-K Range of Motion Start: 09/11/23 08:54 Freq: Status: Active Protocol: Document 09/24/23 11:06 [facility] (Rec: 09/24/23 12:11 [facility] [id number]) Knee Goniometric Range of Motion Knee Right Flexion Active (degrees) 120 Extension Active (degrees) 2 Left Flexion Active (degrees) 116 Extension Active (degrees) 5 Comments discomfort w/flex PT-OP-L Special Tests Start: 09/11/23 08:54 Freq: Status: Active Protocol: Document 09/24/23 11:06 [facility] (Rec: 09/24/23 12:11 [facility] [id number]) Special Tests Knee Special Tests SLR Comments tightness in HS B (about equal tightness) Dulce Maria Test Comments pos L Thessaly Test 5 Degrees Comments Pos L Other Special Tests Special Tests 140/92 BP PT-OP-M Strength Start: 09/11/23 08:54 Freq: Status: Active Protocol: Document 11/10/23 11:17 [facility] (Rec: 11/10/23 12:05 [facility] [id number]) Hip Strength Hip Manual Muscle Testing Right Flexion (L2) 3+ Fair+ Extension (S1) 4 Good Abduction 5 Normal Adduction 4+ Good+ External Rotation 4 Good Internal Rotation 4+ Good+ Left Flexion (L2) 4 Good Extension (S1) 4 Good Abduction 4 Good Adduction 4- Good- External Rotation 4 Good Internal Rotation 4+ Good+ Knee Strength Knee Manual Muscle Testing Right Flexion (S2) 4+ Good+ Extension (L3) 5 Normal Left Flexion (S2) 4+ Good+ Extension (L3) 5 Normal Ankle/Foot Strength Ankle and Foot Manual Muscle Testing Right Dorsiflexion (L4) 5 Normal Plantarflexion (S1) 5 Normal Left Dorsiflexion (L4) 5 Normal Plantarflexion (S1) 5 Normal Comments 20 heel raises B PT-OP-T Assessment and Plan Start: 09/11/23 08:54 Freq: Status: Active Protocol: Document 02/09/24 08:04 [facility] (Rec: 02/09/24 08:05 [facility] [id number]) Physical Therapy Assessment Goals stability Care Home Goal (LTG) Pt will reports being able to get up at night and feels like he can trust his knees when walking. 3/4-can sleep through the night w/o inc pain; has felt fine LTG Duration 12/17/23 activities Short Term Goal (STG) Pt will be able to go up/down stairs reciprocally w/o rail w /o knee pain or LBP 10/16/2023 Patient reportshaving no pain ascending and descending 6 inch stairs without rail. STG Duration achieved 11/09 Care Home Goal (LTG) Pt will report being able to walk on any terrain w/o inc knee pain or LBP greater than 09/17. 11/09-has not been walking much d/t covid reecntly LTG Duration 12/17/23 strength Short Term Goal (STG) pt will improve LPM to at least 2/5 in all planes and be indep w/HEP 11/09-improved STG Duration 11/07/23 Diving Judge Goal (LTG) Pt will score at least 3/5 on LPM and at least 4+/5 on B LE MMT to show improved strength and stability to allow greater ease with functional activties. 11/09-improved LTG Duration 12/17/23 LEFS Impairment 41/80 Short Term Goal (STG) Pt will improve LEFS score to at least 50/80 to show improved functional ability. STG Duration achieved to 51/80 11/09 Care Home Goal (LTG) Pt will improve LEFS score to at least 60/80 to show improved functional ability. LTG Duration 12/17/23 Assessment Summary Assessment Pt idd improve w/mobility w/PT and was sleeping better thorugh the night, but was not fully compliant w/HEP. He planned to see a doctor to consider shot for knees and did not schedule further visits after. Pt has not been seen for 2.5 months so DC d/t nolonger attending PT Physical Therapy Plan Discharge Physical Therapy Discharge Reasons No Longer Attending PT
== END 2024-02-09 14:27 | disposition home or self-care (01) ==
LOC: PHYS 11:15
PROVIDERS: Family Provider Family Medicine; PCP Family Medicine; Referring Provider Family Medicine; Visit Provider Family Medicine
DX: M25.561 Pain in right knee (principal); M25.562 Pain in left knee; G89.29 Other chronic pain; R53.1 Weakness; R26.2 Difficulty in walking, not elsewhere classified; R29.3 Abnormal posture
CPT/HCPCS: 97110; 97112; 97140; 97162; 97530; 97535

== ENCOUNTER → 2024-03-01 08:41 | Outpatient (CLI) | payer MEDICARE, SELFPAY ==
[2024-03-01 09:15] LABS: Add Manual Diff / Slide Review NO; Basophils Absolute Auto 0 /uL (0-100); Basophils Percent Auto 0.9 % (0-2); Eosinophils Absolute Auto 200 /uL (0-450); Eosinophils Percent Auto 3.1 % (2-4); Hematocrit 53.5 % (41-53); Lymphocytes Absolute Auto 1800 /uL (1100-4500); Lymphocytes Percent Auto 36.3 % (25-40); Mean Corpuscular HGB Conc 33.7 % (30-36); Mean Corpuscular Hemoglobin 32.5 PG (26-34); Mean Corpuscular Volume 96.4 fL (80-100); Monocytes Absolute Auto 600 /uL (0-900); Monocytes Percent Auto 11.8 % (3-14); Neutrophils Absolute Auto 2400 /uL (1500-7000); Neutrophils Percent Auto 47.9 % (50-75); Platelet Count 225 X10^3/uL (150-400); Red Blood Cell Count 5.55 X10^6/uL (4.5-5.9); Red Cell Distribution Width 13.8 % (11.6-14.8)
[2024-03-01 09:26] LABS: Hemoglobin A1C% w Est Avg Glu 5.9 % (4.0-6.0)
[2024-03-01 09:49] LABS: Alanine Aminotransferase 6 IU/L (<50); Albumin 4.5 g/dL (3.5-5.0); Albumin Globulin Ratio 1.3 (1.0-2.8); Alkaline Phosphatase 65 U/L (38-126); Aspartate Aminotransferase 19 IU/L (17-59); BUN Creatinine Ratio 19.8 (6-22); Blood Urea Nitrogen 17 mg/dL (9-20); Calcium 9.8 mg/dL (8.4-10.2); Carbon Dioxide 28 mmol/L (22-32); Chloride 104 mmol/L (98-107); Estimated Glomerular Filt Rate > 60 mL/min (>60); Globulin 3.6 g/dL (1.7-4.1); Glucose 115 mg/dL (80-110); HEMOLYSIS < 15 (0-50); Potassium 4.8 mmol/L (3.4-5.1); Sodium 137 mmol/L (137-145); Total Protein 8.1 g/dL (6.3-8.2)
== END ==
PROVIDERS: Family Provider Family Medicine; PCP Family Medicine; Referring Provider Family Medicine; Visit Provider Family Medicine
DX: R73.9 Hyperglycemia, unspecified (principal); I10 Essential (primary) hypertension; E78.2 Mixed hyperlipidemia; R53.83 Other fatigue
CPT/HCPCS: 36415; 80053; 83036; 84402; 84403; 85025

== ENCOUNTER → 2024-04-16 10:39 | Outpatient (CLI) | payer MEDICARE, SELFPAY ==
[2024-04-16 11:41] LABS: Add Manual Diff / Slide Review NO; Basophils Absolute Auto 0 /uL (0-100); Basophils Percent Auto 0.7 % (0-2); Eosinophils Absolute Auto 100 /uL (0-450); Eosinophils Percent Auto 1.9 % (2-4); Hematocrit 54.3 % (41-53); Hemoglobin 18.3 g/dL (13.5-17.5); Lymphocytes Absolute Auto 1600 /uL (1100-4500); Lymphocytes Percent Auto 26.8 % (25-40); Mean Corpuscular HGB Conc 33.8 % (30-36); Mean Corpuscular Hemoglobin 32.8 PG (26-34); Monocytes Absolute Auto 600 /uL (0-900); Monocytes Percent Auto 10.3 % (3-14); Neutrophils Absolute Auto 3700 /uL (1500-7000); Neutrophils Percent Auto 60.3 % (50-75); Platelet Count 216 X10^3/uL (150-400); Red Blood Cell Count 5.59 X10^6/uL (4.5-5.9); Red Cell Distribution Width 14.7 % (11.6-14.8); White Blood Cell Count 6.1 X10^3/uL (4.5-11.0)
[2024-04-16 11:57] LABS: Cholesterol 210 mg/dL (140-199); HDL Cholesterol 34 mg/dL (40-60); LDL Cholesterol Calculated 150 mg/dL (<100); Triglycerides 129 mg/dL (35-150)
[2024-04-16 12:24] LABS: Prostate Specific Antigen 0.651 ng/mL (0.10-4.00)
[2024-04-16 12:28] LABS: Testosterone 603 ng/dL (71.8-623)
== END ==
PROVIDERS: Family Provider Family Medicine; PCP Family Medicine; Referring Provider Family Medicine; Visit Provider Family Medicine
DX: E78.2 Mixed hyperlipidemia (principal); E29.1 Testicular hypofunction; Z12.5 Encounter for screening for malignant neoplasm of prostate
CPT/HCPCS: 36415; 80061; 84153; 84403; 85025; G0103

== ENCOUNTER → 2024-06-29 10:15 | Outpatient (CLI) | payer MEDICARE, SELFPAY ==
[2024-06-29 11:18] LABS: Add Manual Diff / Slide Review NO; Basophils Absolute Auto 0 /uL (0-100); Basophils Percent Auto 0.7 % (0-2); Eosinophils Absolute Auto 200 /uL (0-450); Eosinophils Percent Auto 2.7 % (2-4); Hematocrit 53.6 % (41-53); Hemoglobin 18.4 g/dL (13.5-17.5); Lymphocytes Absolute Auto 1900 /uL (1100-4500); Lymphocytes Percent Auto 30.8 % (25-40); Mean Corpuscular HGB Conc 34.3 % (30-36); Mean Corpuscular Hemoglobin 33.5 PG (26-34); Mean Corpuscular Volume 97.5 fL (80-100); Monocytes Absolute Auto 700 /uL (0-900); Monocytes Percent Auto 11.5 % (3-14); Neutrophils Absolute Auto 3400 /uL (1500-7000); Neutrophils Percent Auto 54.3 % (50-75); Platelet Count 221 X10^3/uL (150-400); White Blood Cell Count 6.2 X10^3/uL (4.5-11.0)
[2024-06-29 11:38] LABS: Alanine Aminotransferase 11 IU/L (<50); Albumin 4.2 g/dL (3.5-5.0); Albumin Globulin Ratio 1.5 (1.0-2.8); Alkaline Phosphatase 52 U/L (38-126); Aspartate Aminotransferase 20 IU/L (17-59); BUN Creatinine Ratio 15.5 (6-22); Blood Urea Nitrogen 16 mg/dL (9-20); Calcium 9.7 mg/dL (8.4-10.2); Carbon Dioxide 27 mmol/L (22-32); Chloride 101 mmol/L (98-107); Cholesterol 113 mg/dL (140-199); Creatine Kinase 64 U/L (55-170); Estimated Glomerular Filt Rate > 60 mL/min (>60); Globulin 2.8 g/dL (1.7-4.1); Glucose 103 mg/dL (80-110); HDL Cholesterol 34 mg/dL (40-60); HEMOLYSIS 21 (0-50); LDL Cholesterol Calculated 50 mg/dL (<100); Potassium 4.2 mmol/L (3.4-5.1); Sodium 135 mmol/L (137-145); Triglycerides 144 mg/dL (35-150)
[2024-07-09 11:41] LABS: Percent Free Testosterone 6.06 % (1.50-4.20); Testosterone Total 1184.9 ng/dL (264.0-916.0)
== END ==
PROVIDERS: Family Provider Family Medicine; PCP Family Medicine; Referring Provider Family Medicine; Visit Provider Family Medicine
DX: Z00.00 Encounter for general adult medical examination without abnormal findings (principal); E29.1 Testicular hypofunction; I25.10 Atherosclerotic heart disease of native coronary artery without angina pectoris; I10 Essential (primary) hypertension; E78.2 Mixed hyperlipidemia; Z78.9 Other specified health status; M17.0 Bilateral primary osteoarthritis of knee; G20.A1 Parkinson's disease without dyskinesia, without mention of fluctuations
CPT/HCPCS: 36415; 80053; 80061; 82550; 84402; 84403; 85025

== ENCOUNTER → 2024-09-30 10:57 | Outpatient (CLI) | payer MEDICARE, SELFPAY ==
[2024-09-30 12:02] LABS: Cholesterol 101 mg/dL (140-199); HDL Cholesterol 37 mg/dL (40-60); LDL Cholesterol Calculated 44 mg/dL (<100); Triglycerides 102 mg/dL (35-150)
[2024-10-04 12:11] LABS: Percent Free Testosterone 4.47 % (1.50-4.20); Testosterone Free 22.66 ng/dL (5.00-21.00); Testosterone Total 506.9 ng/dL (264.0-916.0)
== END ==
PROVIDERS: Family Provider Family Medicine; PCP Family Medicine; Referring Provider Family Medicine; Visit Provider Family Medicine
DX: E78.2 Mixed hyperlipidemia (principal); E29.1 Testicular hypofunction
CPT/HCPCS: 36415; 80061; 84402; 84403

== ENCOUNTER 2024-11-19 16:21 | Emergency (ER) | payer MEDICARE, SELFPAY ==
[2024-11-19] VITALS (8 sets, daily range): BP systolic 143–181; BP diastolic 71–102; PULSE 62–70; RESP 14–26; TEMP 36.5–37.1; O2SAT 96–99; BMI 32.3
--- NOTE | 2024-11-19 16:30 | DI.RAD.S_ITS ---
PROCEDURE: XR CHEST 1V INDICATIONS: chest pain TECHNIQUE: One view of the chest was acquired. COMPARISON: [facility], CR, XR CHEST 1V, 08/09/2021, 5:05. FINDINGS: Surgical changes and devices: Sternotomy and CABG . Lungs and pleura: Lungs are clear. No pleural effusions or pneumothorax. Mediastinum: Mediastinal contours appear normal. Heart size is normal. Bones and chest wall: No suspicious bony lesions. Overlying soft tissues appear unremarkable. IMPRESSION: No acute cardiopulmonary abnormality is seen. Dictated by: Kyle Ramirez M.D. on 11/19/2024 at 16:53 Approved by: Kyle Ramirez M.D. on 11/19/2024 at 16:54
--- NOTE | 2024-11-19 16:31 | EKG_ITS ---
[id number] [place] [address] Test Date: 2024-11-19 Pat Name: Allyson Lima Department: Room: Gender: Male Mental Health Aide: GHASSAN : 1950 Requested By: Order Number: [id number] Reading MD: Zander Baldwin Measurements Intervals [place] Rate: 74 P: 45 NV: 268 QRS: 53 QRSD: 96 T: 78 QT: 380 QTc: 421 Interpretive Statements Sinus rhythm with 1st degree AV block with occasional premature ventricular complexes Nonspecific ST and T wave abnormality Electronically Signed On 11-20-2024 18:29:25 PDT by Zander Baldwin
[2024-11-19 16:54] LABS: INR 1.1 (0.9-1.3)
[2024-11-19 16:56] LABS: PTT Partial Thromboplastin Tim 33 SECONDS (25.1-36.5)
[2024-11-19 16:57] LABS: Alanine Aminotransferase 12 IU/L (<50); Albumin 4.1 g/dL (3.5-5.0); Albumin Globulin Ratio 1.3 (1.0-2.8); Alkaline Phosphatase 52 U/L (38-126); Aspartate Aminotransferase 24 IU/L (17-59); BUN Creatinine Ratio 17.4 (6-22); Bilirubin Total 0.5 mg/dL (0.2-1.3); Blood Urea Nitrogen 16 mg/dL (9-20); Calcium 9.4 mg/dL (8.4-10.2); Carbon Dioxide 24 mmol/L (22-32); Chloride 104 mmol/L (98-107); Creatine Kinase 88 U/L (55-170); Estimated Glomerular Filt Rate > 60 mL/min (>60); Globulin 3.1 g/dL (1.7-4.1); Glucose 113 mg/dL (80-110); HEMOLYSIS 19 (0-50); Lipase 73 U/L (23-300); Magnesium 1.5 mg/dL (1.6-2.3); Sodium 136 mmol/L (137-145); Total Protein 7.2 g/dL (6.3-8.2)
[2024-11-19 17:03] LABS: Add Manual Diff / Slide Review NO; Basophils Absolute Auto 100 /uL (0-100); Eosinophils Absolute Auto 200 /uL (0-450); Eosinophils Percent Auto 2.8 % (2-4); Hemoglobin 17.4 g/dL (13.5-17.5); Lymphocytes Absolute Auto 2400 /uL (1100-4500); Lymphocytes Percent Auto 33.7 % (25-40); Mean Corpuscular HGB Conc 34.1 % (30-36); Mean Corpuscular Hemoglobin 32.5 PG (26-34); Mean Corpuscular Volume 95.4 fL (80-100); Monocytes Absolute Auto 900 /uL (0-900); Monocytes Percent Auto 12.7 % (3-14); Neutrophils Absolute Auto 3500 /uL (1500-7000); Neutrophils Percent Auto 49.8 % (50-75); Platelet Count 235 X10^3/uL (150-400); Red Blood Cell Count 5.35 X10^6/uL (4.5-5.9); Red Cell Distribution Width 13.4 % (11.6-14.8)
[2024-11-19 17:09] LABS: NT-proBNP (BNP-Adult 18+) 186 pg/mL (<125); Troponin I < 0.012 ng/mL (0.01-0.034)
[2024-11-19 22:40] LABS: Troponin I < 0.012 ng/mL (0.01-0.034)
--- NOTE | 2024-11-19 22:58 | ED_ITS ---
HPI - Chest Pain General Chief Complaint: Chest Pain Stated Complaint: chest px Time Seen by Provider: 11/19/24 22:58 History of Present Illness HPI narrative: 74-year-old male with a past medical history of hypertension should CAD hyperlipidemia with history of coronary artery bypass graft in the past with stent on Plavix, Parkinson's with baseline tremors comes into the ED from home for evaluation of chest pain that started 30 minutes prior to arrival states it started while he was driving, states it was to the left side of his chest and went to the right side no radiation. 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 He states that the pain only lasted for a few seconds. He denies any other symptoms such as headache visual disturbances fever chills nausea vomiting abdominal pain or any other GI/ symptoms time. Related Data Home Medications Medication Instructions Recorded Confirmed carbidopa 25 mg-levodopa 100 mg 25 - 100 tab PO TID 08/10/21 10/24/24 tablet aspirin 81 mg tablet,delayed 81 mg PO DAILY 11/28/23 10/24/24 release (Adult Low Dose Aspirin) clopidogrel 75 mg tablet 75 mg PO DAILY 03/30/24 10/24/24 losartan 100 mg tablet 100 mg PO DAILY 03/30/24 10/24/24 Previous Rx's Medication Instructions Recorded spironolactone 25 mg tablet See Rx Instructions .Route 01/27/24 .COMPLEX #180 tabs ezetimibe 10 mg tablet 10 mg PO DAILY #90 tabs 03/30/24 metoprolol succinate 25 mg 25 mg PO DAILY #90 tabs 05/24/24 tablet,extended release 24 hr evolocumab 140 mg/mL subcutaneous 140 mg SUBCUT Q2W #1 mL 07/15/24 pen injector testosterone cypionate 200 mg/mL 200 mg IM Q4W #6 mL 07/15/24 intramuscular oil amlodipine 5 mg tablet 10 mg (2 x 5 mg) PO DAILY #180 tabs 11/11/24 Allergies Allergy/AdvReac Type Severity Reaction Status Date / Time lisinopril [LISINOPRIL] Allergy Mild COUGH Verified 10/24/24 13:35 metoprolol [METOPROLOL] Allergy Mild HYPOTENSIVE Verified 10/24/24 13:35 meperidine [From DEMEROL] Allergy Unknown Verified 10/24/24 13:35 Review of Systems Review of Systems Narrative: General: Denies fever, chills, weight loss HEENT: Denies headache, eye drainage, eye irritation, head trauma, sore throat, voice change Cardiovascular: Positive chest pain, denies palpitations, tachycardia Respiratory: Denies any shortness of breath, cough, wheeze, stridor GI/: Denies any abdominal pain, nausea, vomiting, diarrhea, bright red blood per rectum, melanotic stools, urinary frequency, urinary retention, dysuria, hematuria MSK: Denies any joint pain, muscle pains, swelling Skin: Denies any rashes, lesions, discoloration Neuro: Denies any headache, lightheadedness, dizziness, fainting, weakness Psych: Denies SI/HI Patient History Medical History Statin intolerance Hypotestosteronemia in male Bilateral primary osteoarthritis of knee Carotid stenosis Neoplasm of uncertain behavior of skin Parkinsons disease Tremor Retinal artery occlusion, 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) CAD (coronary artery disease) (2008) [place] (myocardial infarction) (2008) Surgical History History of bilateral carpal tunnel release History of cardiac catheterization (01/26/09) S/P CABG (coronary artery bypass graft) (01/2009) History of left-sided carotid endarterectomy (08/18/15) History of colonoscopy (02/19/11) Family History Father Heart disease Heart attack Mother Heart attack Sister Hypertension Social History Smoking Status: Never smoker Smoking Status: Never smoker alcohol intake frequency: 3 or more drinks per day Exam Narrative Exam Narrative: General: Cooperative, comfortable, well-developed, not in acute distress HEENT: Normocephalic, atraumatic, PERRLA, normal sclera, eyelids normal, Neck: Active full range of motion, atraumatic Chest: Normal to inspection, negative crepitus, no overlying erythema ecchymosis Respiratory: Normal respiratory effort, not in acute respiratory distress, clear to auscultation bilaterally negative cough, wheeze, tachypnea, rhonchi, rales Cardiology: Regular rate rhythm negative gallop, murmur, rubs GI/: Normal to inspection, soft, nonrigid, no tenderness to palpation, exam deferred MSK: Full range of active range of motion of all 4 extremities, atraumatic Skin: No rashes lesions noted Neuro: Patient with baseline left-sided tremors due to Parkinson's, Alert awake oriented x3, moves all 4 extremities spontaneously, cranial nerves intact, able to answer all questions appropriately follows commands appropriately Psych: Cooperative, negative suicidal or homicidal ideations Initial Vital Signs Initial Vital Signs: Vital Signs Temperature 98.7 F 11/19/24 16:28 Respiratory Rate 16 11/19/24 16:28 Blood Pressure 154/90 H 11/19/24 16:28 Pulse Oximetry 99 11/19/24 16:28 Oxygen Delivery Method Room Air 11/19/24 16:28 Course Orders Ordered: ED Orders 11/19/24 16:30 XR chest 1V Stat EKG-12 Lead Stat 11/19/24 16:38 Complete Blood Count AUTO DIFF Stat Comprehensive Metabolic Panel Stat Lipase Stat Magnesium Stat NT-proBNP (BNP-Adult 18+) Stat PTT Partial Thromboplastin Lamberto Stat Prothrombin Time INR Stat Troponin & CK Cardiac Panel Stat 11/19/24 22:06 Trop I [Troponin I] Stat Vital Signs Vital signs: Vital Signs - 8 hr 11/19/24 16:28 11/19/24 20:07 11/19/24 21:57 Temperature 98.7 F 97.7 F Pulse Rate 62 70 Respiratory Rate 16 18 26 H Blood Pressure 154/90 H 159/87 H Pulse Oximetry 99 96 96 Oxygen Delivery Method Room Air Room Air 11/19/24 21:58 11/19/24 21:58 11/19/24 22:00 Temperature Pulse Rate 70 67 Respiratory Rate 17 16 Blood Pressure 143/102 H Pulse Oximetry 97 98 Oxygen Delivery Method 11/19/24 22:02 11/19/24 22:02 11/19/24 22:31 Temperature Pulse Rate 68 69 Respiratory Rate 16 14 Blood Pressure 181/91 H Pulse Oximetry 99 97 Oxygen Delivery Method Room Air 11/19/24 22:31 Temperature Pulse Rate Respiratory Rate Blood Pressure 151/71 H Pulse Oximetry Oxygen Delivery Method MDM - Chest Pain Differential Diagnosis Differential diagnosis: Likely atypical chest pain, st elevation myocardial infarction, costochondritis, chest pain and other (Pneumonia, electrolyte abnormality, ACS) Lab Data 11/19/24 16:38 11/19/24 16:38 Labs: Lab Results 11/19/24 11/19/24 Range/Units 16:38 22:06 WBC 7.0 (4.5-11.0) X10^3/uL RBC 5.35 (4.5-5.9) X10^6/uL Hgb 17.4 (13.5-17.5) g/dL Hct 51.0 (41-53) % MCV 95.4 (80-100) fL MCH 32.5 (26-34) PG MCHC 34.1 (30-36) % RDW 13.4 (11.6-14.8) % Plt Count 235 (150-400) X10^3/uL Neut % (Auto) 49.8 L (50-75) % Lymph % (Auto) 33.7 (25-40) % Benton % (Auto) 12.7 (3-14) % Eos % (Auto) 2.8 (2-4) % Baso % (Auto) 1.0 (0-2) % Neut # (Auto) 3500 (1127-4617) /uL Lymph # (Auto) 2400 (7507-5462) /uL Benton # (Auto) 900 (0-900) /uL Eos # (Auto) 200 (0-450) /uL Baso # (Auto) 100 (0-100) /uL PT 12.0 (9.4-12.5) SECONDS INR 1.1 (0.9-1.3) APTT 33 (25.1-36.5) SECONDS Sodium 136 L (137-145) mmol/L Potassium 4.0 (3.4-5.1) mmol/L Chloride 104 (98-107) mmol/L Carbon Dioxide 24 (22-32) mmol/L BUN 16 (9-20) mg/dL Creatinine 0.92 (0.66-1.25) mg/dL Estimated GFR > 60 (>60) mL/min BUN/Creatinine Ratio 17.4 (6-22) Glucose 113 H (80-110) mg/dL Calcium 9.4 (8.4-10.2) mg/dL Magnesium 1.5 L (1.6-2.3) mg/dL Total Bilirubin 0.5 (0.2-1.3) mg/dL AST 24 (17-59) IU/L ALT 12 (<50) IU/L Alkaline Phosphatase 52 (38-126) U/L Total Creatine Kinase 88 (55-170) U/L Troponin I < 0.012 < 0.012 (0.01-0.034) ng/mL NT-Pro-B Natriuret Pep 186 H (<125) pg/mL Total Protein 7.2 (6.3-8.2) g/dL Albumin 4.1 (3.5-5.0) g/dL Globulin 3.1 (1.7-4.1) g/dL Albumin/Globulin Ratio 1.3 (1.0-2.8) Lipase 73 (23-300) U/L Imaging Data Chest x-ray: Radiologist's Impression: [address] [address] XRay Report Signed Patient: Allyson Lima MR#: [id number] : 1950 Acct:[id number] Age/Sex: 74 / M Date of Service: 11/19/24 Loc: ED Accession Number: [id number] Procedure: XR chest 1V Ordering Provider: Ladi Finnegan D.O. PROCEDURE: XR CHEST 1V INDICATIONS: chest pain TECHNIQUE: One view of the chest was acquired. COMPARISON: [facility], , XR CHEST 1V, 08/09/2021, 5:05. FINDINGS: Surgical changes and devices: Sternotomy and CABG . Lungs and pleura: Lungs are clear. No pleural effusions or pneumothorax. Mediastinum: Mediastinal contours appear normal. Heart size is normal. Bones and chest wall: No suspicious bony lesions. Overlying soft tissues appear unremarkable. IMPRESSION: No acute cardiopulmonary abnormality is seen. ECG Data Interpretation: EKG interpreted ED physician sinus at 74 beats per minute occasional PVC noted QTC [address] changes no STEMI MDM Narrative Medical decision making narrative: 74-year-old male with a past medical history of CAD stent x1 on Plavix with CABG comes into the ED from home for evaluation of chest pain states it started 30 minutes prior to arrival while he was driving. He also does have baseline left- sided tremors due to history of Parkinson's. 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 At time of evaluation patient not complaining of any chest pain, he states that he feels completely normal, patient was given full-dose aspirin here in the emergency department. Patient with EKG without any ischemic changes troponin negative x2, chest x-ray without any acute cardiopulmonary abnormality, lab work otherwise unremarkable, patient does have moderate heart score of 4, I informed patient that it is recommended that he get admitted versus transfer for stress test and echo however he states that he feels completely fine and states that he would rather follow up with his supervisor slitting and shipping as an outpatient setting, he understands the risks and benefits of this he states that he would rather call them and follow up and set up a stress test and echo because he does not want to be admitted or transferred. He was given strict return precautions he verbalized understanding of this and agrees to being discharged home with outpatient follow up Discharge Plan Departure Patient Disposition: Home Clinical Impression: Chest pain Instructions: DI for Chest Pain Activity Restrictions/Additional Instructions: Please call your supervisor slitting and shipping and schedule a stress test and echo as soon as you can Please read the discharge instructions sheet carefully and bring all papers to all doctor follow-up visits, as it may contain information that your doctor may want to see. Disease processes change and evolve, if your symptoms worsen or if you develop any new symptoms that are concerning to you please return for evaluation. Your evaluation today does not show any evidence of any life- threatening/serious illnesses requiring admission to the hospital or surgery. Please follow-up with your doctor for re-evaluation in approximately 1 day. Seek immediate medical attention for any worrisome symptoms. *If you do not have a primary care provider please contact the [facility] Resource line at [phone]. They will ask some questions about your medical history and help get you set up with a doctor in the community. Prescriptions: No Action spironolactone 25 mg tablet See Rx Instructions .ROUTE .COMPLEX Qty: 180 0RF Dose Instruction: TAKE TWO TABLETS BY MOUTH DAILY Rx Instructions: TAKE TWO TABLETS BY MOUTH DAILY metoprolol succinate 25 mg tablet extended release 24 hr 25 mg PO DAILY Qty: 90 1RF evolocumab 140 mg/mL pen injector 140 mg SUBCUT Q2W Qty: 1 0RF testosterone cypionate 200 mg/mL oil 200 mg IM Q4W Qty: 6 4RF Hold Instructions: Home Medication placed on hold at Doctor's office losartan 100 mg tablet 100 mg PO DAILY clopidogrel 75 mg tablet 75 mg PO DAILY ezetimibe 10 mg tablet 10 mg PO DAILY Qty: 90 0RF amlodipine 5 mg tablet 10 mg PO DAILY Qty: 180 0RF carbidopa-levodopa 25-100 mg tablet 25 - 100 tab PO TID Rx Instructions: takes 2 tabs by mouth 3x day aspirin [Adult Low Dose Aspirin] 81 mg tablet,delayed release (DR/EC) 81 mg PO DAILY Referrals: Domenic Patterson MD [Primary Care Provider] - Stand Alone Forms: Patient Portal/API/Survey
== END 2024-11-19 23:33 | disposition home or self-care (01) ==
PROVIDERS: Emergency Medicine; Emergency Provider Student in an Organized Health Care Education/Training Program; Family Provider Family Medicine; PCP Family Medicine
DX: R07.9 Chest pain, unspecified (principal); Z95.2 Presence of prosthetic heart valve; G20.A1 Parkinson's disease without dyskinesia, without mention of fluctuations; Z95.5 Presence of coronary angioplasty implant and graft; I44.0 Atrioventricular block, first degree
CPT/HCPCS: 36415; 71045; 80053; 82550; 83690; 83735; 83880; 84484; 85025; 85610; 85730; 93005; 99283; 99284

== ENCOUNTER → 2024-12-24 11:14 | Outpatient (CLI) | payer MEDICARE, SELFPAY | PROVIDERS: Family Provider Family Medicine; PCP Family Medicine; Referring Provider Nurse Practitioner Family; Visit Provider Nurse Practitioner Family | DX: J02.9 Acute pharyngitis, unspecified (principal) | CPT/HCPCS: 87070 ==

== ENCOUNTER → 2025-02-03 08:48 | Outpatient (CLI) | payer MEDICARE, SELFPAY ==
[2025-02-03 10:56] LABS: Testosterone 110 ng/dL (71.8-623)
== END ==
PROVIDERS: Family Provider Family Medicine; PCP Family Medicine; Referring Provider Family Medicine; Visit Provider Family Medicine
DX: E29.1 Testicular hypofunction (principal)
CPT/HCPCS: 36415; 84403

== ENCOUNTER → 2025-02-16 16:14 | Outpatient (CLI) | payer MEDICARE, SELFPAY | LOC: LAB 16:16 | PROVIDERS: Family Provider Family Medicine; PCP Family Medicine; Visit Provider Physician Assistant | DX: S60.459A Superficial foreign body of unspecified finger, initial encounter (principal) | CPT/HCPCS: 87070; 87075; 87205 ==

== ENCOUNTER → 2025-02-16 16:19 | Outpatient (CLI) | payer MEDICARE, SELFPAY ==
--- NOTE | 2025-02-16 17:07 | DI.RAD.S_ITS ---
PROCEDURE: XR FINGER RT MIN 2V INDICATIONS: splinter deep in finger tip 3rd digit TECHNIQUE: PA hand, 2 views of the middle finger acquired. COMPARISON: None. FINDINGS: Bones: No acute fractures or dislocations. No suspicious bony lesions. Background degenerative changes are seen in the hand and wrist. Soft tissues: Soft tissue swelling is seen in the distal middle finger. No definite foreign body is seen radiographically. IMPRESSION: Nonspecific soft tissue swelling in the distal middle finger. No definite radiopaque foreign body. However, wood splinters may be radiolucent. Targeted ultrasound could be considered for further evaluation if there is continued concern for a foreign body. No acute osseous abnormality. Approved by: Kai Starks M.D. on 02/16/2025 at 17:31
== END ==
LOC: RAD 16:23
PROVIDERS: Family Provider Family Medicine; PCP Family Medicine; Referring Provider Physician Assistant; Visit Provider Physician Assistant
DX: S60.452A Superficial foreign body of right middle finger, initial encounter (principal); M79.89 Other specified soft tissue disorders; W45.8XXA Other foreign body or object entering through skin, initial encounter
CPT/HCPCS: 73140; 87070; 87075; 87205

== ENCOUNTER → 2025-02-23 10:37 | Outpatient (CLI) | payer MEDICARE, SELFPAY ==
[2025-02-23 12:22] LABS: Hemoglobin A1C% w Est Avg Glu 5.7 % (4.0-6.0)
[2025-02-23 12:37] LABS: Alanine Aminotransferase 10 IU/L (<50); Albumin 4.1 g/dL (3.5-5.0); Albumin Globulin Ratio 1.5 (1.0-2.8); Alkaline Phosphatase 57 U/L (38-126); Aspartate Aminotransferase 23 IU/L (17-59); BUN Creatinine Ratio 26.1 (6-22); Bilirubin Total 1.2 mg/dL (0.2-1.3); Blood Urea Nitrogen 24 mg/dL (9-20); Calcium 9.2 mg/dL (8.4-10.2); Carbon Dioxide 20 mmol/L (22-32); Chloride 105 mmol/L (98-107); Estimated Glomerular Filt Rate > 60 mL/min (>60); Globulin 2.8 g/dL (1.7-4.1); Glucose 110 mg/dL (70-99); HEMOLYSIS < 15 (0-50); Potassium 4.6 mmol/L (3.4-5.1); Sodium 136 mmol/L (137-145); Total Protein 6.9 g/dL (6.3-8.2)
== END ==
LOC: LAB 10:38
PROVIDERS: Family Provider Family Medicine; PCP Family Medicine; Referring Provider Family Medicine; Visit Provider Family Medicine
DX: R73.9 Hyperglycemia, unspecified (principal); E29.1 Testicular hypofunction; Z78.9 Other specified health status; E78.2 Mixed hyperlipidemia
CPT/HCPCS: 36415; 80053; 83036; 84402; 84403

== ENCOUNTER 2025-05-18 13:31 | Day surgery (SDC) | payer MEDICARE, SELFPAY ==
--- NOTE | 2025-05-18 | PATH_ITS ---
[facility] Accession Number: [id number] No. of containers..01 Tissue . 01 Material submitted: . hemorrhoids - THROMBOSED HEMORRHOID . 01 Diagnosis: THROMBOSED HEMORRHOID, EXCISION: Blood only; no tissue present for evaluation. V 05/27/2025 1519 Local . 01 Electronically signed: . Kendra Grijalva DO, Pathologist NPI- [id number] . 01 Gross description: . Received in formalin with two identifiers and thrombosed hemorrhoid, are multiple fragments of friable coagulated hemorrhagic material aggregating to 2.7 x 2.4 x 1.2 cm. No skin is soft tissue definitively identified. The specimen is submitted entirely in cassettes A1-A2. ([id number]) /BUD 05/25/2025 0206 Local . 01 Pathologist provided ICD-10: K64.5 . 01 CPT . 229254 Specimen Comment: A courtesy copy of this report has been sent to [facility] Pathology Performed at: [address] [address], [place], [place] [id number] MD Piero Miranda MD Phone: [phone]
[2025-05-18 07:58] VITALS: BMI 31.5
[2025-05-18 14:59] VITALS: BP 152/89; PULSE 76; RESP 16; TEMP 36.1; O2SAT 98; BMI 31.5
[2025-05-18] MEDS: ACETAMINOPHEN 325 MG TABLET 975 MG PO (15:10)
--- NOTE | 2025-05-18 15:41 | SUR.PREOP ---
this RN chaperoned Dr. Davis with a rectal exam. patient tolerated well.
--- NOTE | 2025-05-18 15:47 | PM.HP.IH.1 ---
History of Present Illness History of Present Illness Date Patient Seen: 05/18/25 Time Patient Seen: 03:30 Date of Onset of Symptoms: 05/14/25 Chief complaint: I&D Hemorrhoid Narrative: Patient is a 74-year-old white male referring physician Dr. Tavares. Patient presents with a thrombosed external hemorrhoid was going on approximately 5 days. Patient has had a previous thrombosed hemorrhoid removed 50 years ago. The patient was seen by Dr. Tavares in the office because the surgical schedule so [place] referred the patient to ct for incision and drainage of thrombosed external hemorrhoid. Patient was seen in the holding area for PACU. Procedure risks and complications were fully explained including risk for cardiopulmonary depression infection bleeding and reoccurrence patient understands and consents. Patient was examined areas the whole right side is involved with a thrombosed hemorrhoid. It was very taut painful. No bleeding. Allergies: Demerol and lisinopril Medications: Carbidopa levodopa, aspirin, Plavix, losartan Past medical history: Hyperlipidemia, hypertension, parkinsonism disease with tremors, history of a TIA in the past, atherosclerotic vascular disease with carotid disease with history of MD x2 in 2008 and 2021. 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 Denies any other heart lungs digestive musculoskeletal neurological seizure disorder psychiatric problems risks Infectious diseases HIV or AIDS. Past surgical history: History of skin cancer removal, CABG in 2008, thrombosed hemorrhoid done 50 years ago, right and left carpal tunnel, history of left carotid endarterectomy, heart catheterization, colonoscopy in 2010-. 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 Patient is 5 ft 10 in tall 220 lb vitals are on chart Head is normocephalic eyes PERRLA EOMI is intact nares clear septum midline EACs and pinnae unremarkable oropharyngeal cavity moderate repair heart regular rate and rhythm without murmurs lungs are clear to auscultation no rales rhonchi or wheezes noted moderate inspiratory and expiratory effort moderate chest wall motion noted abdomen is soft nondistended no masses or peritoneal signs musculoskeletal moderate muscle tone and strength equal bilaterally no gross deficits elicited. The patient has a intentional tremor. Patient was examined with nurse in attendance patient is noted to have a large thrombosed painful hemorrhoid nonbleeding. Impression: Thrombosed external hemorrhoid need for incision and drainage procedure risks and complications were fully explained including risk for cardiopulmonary depression infection bleeding and reoccurrence the patient understands and consents we will proceed to OR. Postoperatively we will be given a prescription for narcotics discussed perianal care with Juani diazs tucks pads preparation H maxi pads. Patient to follow-up with Dr. Tavares for postoperative follow-up return if any problems questions or concerns. All questions were answered to patient's satisfaction. 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) CAD (coronary artery disease) (2008) [place] (myocardial infarction) (2008) Surgical History (Updated 05/18/25 @ 08:21 by Katelynn Ruiz RN) Hx of heart artery stent History of bilateral carpal tunnel release History of cardiac catheterization (01/26/09) S/P CABG (coronary artery bypass graft) (01/2009) History of left-sided carotid endarterectomy (08/18/15) History of colonoscopy (02/19/11) Family History Father Heart disease Heart attack Mother Heart attack Sister Hypertension Social History Smoking Status: Never smoker Meds Home Medications and Allergies Home Medications ?Medication ?Instructions ?Recorded ?Confirmed ?Type carbidopa 25 mg-levodopa 100 mg 25 - 100 tab PO TID 08/10/21 05/18/25 History tablet aspirin 81 mg tablet,delayed 81 mg PO DAILY 11/28/23 05/18/25 History release (Adult Low Dose Aspirin) spironolactone 25 mg tablet See Rx Instructions .Route 01/27/24 05/18/25 Rx .COMPLEX #180 tabs ezetimibe 10 mg tablet 10 mg PO DAILY #90 tabs 03/30/24 05/18/25 Rx losartan 100 mg tablet 100 mg PO DAILY 03/30/24 05/18/25 History clopidogrel 75 mg tablet 75 mg PO DAILY #90 tabs 01/03/25 05/18/25 Rx metoprolol succinate 25 mg 25 mg PO DAILY #90 tabs 02/01/25 05/18/25 Rx tablet,extended release 24 hr alirocumab 75 mg/mL subcutaneous 75 mg SUBCUT Q2W 03/03/25 05/18/25 History pen injector (Praluent Pen) testosterone cypionate 200 mg/mL 200 mg IM Q3W #6 mL 03/21/25 05/17/25 Rx intramuscular oil amlodipine 5 mg tablet 10 mg (2 x 5 mg) PO DAILY #180 tabs 04/28/25 05/18/25 Rx tadalafil 20 mg tablet 20 mg PO DAILY PRN intercourse 05/18/25 05/18/25 History Allergies Allergy/AdvReac Type Severity Reaction Status Date / Time lisinopril (LISINOPRIL) Allergy Mild COUGH Verified 05/18/25 14:42 meperidine (From DEMEROL) Allergy Unknown Verified 05/18/25 14:42 rosuvastatin AdvReac Intermediate Arthralgias Uncoded 05/18/25 14:42 Exam Vital Signs (past 8 hours): - 05/18/25 14:59 Temperature 97.0 F L Pulse Rate 76 Respiratory Rate 16 Blood Pressure 152/89 H Pulse Oximetry 98 Oxygen Delivery Method Room Air Oxygen Delivery Method Room Air Assessment & Plan Time-Based Coding :: [TOTAL MINUTES] spent with patient and on the chart (including review of chart, obtaining history, exam, reviewing outside data, placing orders, documenting exam and treatment plan, and counseling patient) on [DATE]. 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
[2025-05-18] MEDS: CIPROFLOXACIN 400 MG/200 ML PIGGYBACK 200 MG IV (16:13)
--- NOTE | 2025-05-18 16:18 | SUR.OPER ---
Prone on padded OR bed, head in foam head support, gel chest rolls, pillow to torso, gel pad under knees, pillows under lower legs, toes free of pressure, arms secured on padded arm boards at <90 degrees abduction. Safety belt at torso.
[2025-05-18 16:19] LABS: Hematocrit 53.5 % (41-53); Hemoglobin 18.2 g/dL (13.5-17.5); Mean Corpuscular HGB Conc 33.9 % (30-36); Mean Corpuscular Hemoglobin 32.8 PG (26-34); Mean Corpuscular Volume 96.6 fL (80-100); Platelet Count 216 X10^3/uL (150-400)
[2025-05-18] MEDS: BACITRACIN OINT 0.9 GM PCKT 1 APPLIC TOP ×2 (16:22→16:23)
[2025-05-18 16:34] VITALS: BP 165/88; PULSE 87; RESP 16; TEMP 36.6; O2SAT 97
[2025-05-18 16:39] VITALS: BP 111/56; PULSE 88; RESP 16; O2SAT 95
[2025-05-18] MEDS: BUPivacaine 0.25% W/ EPI (PF) 30 ML VIAL INJ (16:42)
[2025-05-18 16:44] VITALS: BP 111/56; PULSE 82; RESP 17; O2SAT 98
[2025-05-18 16:49] VITALS: BP 112/78; PULSE 81; RESP 14; O2SAT 98
--- NOTE | 2025-05-18 16:50 | P.OP_ITS ---
Operative Date/Time/Diagnoses Date of procedure: 05/18/25 Time of procedure: 04:00 Pre-op diagnosis: Perianal pain with a thrombosed left lateral external hemorrhoid Post-op diagnosis: same (Left lateral external hemorrhoid) Procedure & Clinicians Procedure: Patient is a 74-year-old white male referring physician Dr. Tavares having a thrombosed left lateral external hemorrhoid been there for approximately 4-5 day s. Patient was having severe pain he had had a previous thrombosed hemorrhoid done 50 years ago. Patient was referred to me as Dr. Tavares schedule was full. Patient was NPO at midnight was seen in PCU for preop evaluation. Patient had been NPO since midnight. Patient was seen procedure risks and complications were fully explained including risk for cardiopulmonary depression infection bleeding and urinary retention patient understood and consented. The patient was then taken to surgery suite was administered a general inhalation endotracheal anesthetic patient was placed in the prone position with padding of all areas to avoid any neurovascular injury. The patient then had buttocks were taped apart with silk tape prepped and draped in usual sterile fashion with Betadine. Time-out was performed procedure patient and surgeon all in the room were in agreement. Patient was liberally injected with Marcaine 0.25% with epi in all areas. Incision was made with electrocautery overlying the most fluctuant portion at all the clot was removed. This was further irrigated out all further clot was removed no further bleeding was noted. Patient was cleansed with sterile saline covered triple antibiotic ointment and a maxi pad. Returned back to supine position. Patient tolerated procedure well without evidence of complication. First and 2nd sponge instrument and needle counts fo und to be correct. The patient was returned to recovery room may be discharged when able of having urinary retention 5% chance cyst being admitted. Discussed perianal care tucks pads Sitz baths preparation H watch for any signs of infection patient may be given a prescription for hydrocodone and precautions for same. Discussed perianal care dietary fiber water fluids and bowel habits. All questions were answered patient's satisfaction follow up with Dr. Tavares in the office in 1-2 weeks are returned to the emergency room if any problems questions or concerns. All questions were answered to patient's satisfaction. Same procedure(s) as scheduled: Yes (Incision and drainage of thrombosed left lateral external hemorrhoid) Surgeon: Abad Davis Click Yes if Unassisted: Yes Anesthesia Type: General Operative Notes Findings: Left lateral thrombosed external hemorrhoid large amount of clot Closure Type: non-primary Specimen(s): other Prosthetic devices, grafts, tissues, transplants, or devices: Thrombosed hemorrhoid and clots Applied: none Estimated Blood Loss (mL): 10 Blood products transfused: none Complications: none Post-operative Condition: stable Disposition: PACU
[2025-05-18] MEDS: LACTATED RINGERS 1,000 ML 42 ML IV (16:52)
[2025-05-18 16:57] VITALS: BP 114/54; PULSE 78; RESP 16; TEMP 36.6; O2SAT 97
--- NOTE | 2025-05-19 15:07 | PM.PN.IH.1 ---
Subjective Subjective Date Patient Seen: 05/19/25 Time Patient Seen: 02:30 Interval history: Patient is a 74-year-old white male presents to the office postop day 1. Incision and drainage of a massive thrombosed left lateral external hemorrhoid. Patient states he was showering today and he felt MAC of the surgical area and states it is huge patient was very worried comes in the office to be evaluated. Patient admits to a minimal drainage it is mostly thin pink. He denies any pains not taken any pain pills denies any fever chills night sweats denies any dysuria. Vitals: Temperature is 98.0? pulse 79 respirations 16 BP is 140/80 SaO2 is 96% on room air Heart regular rate and rhythm without murmurs. Lungs are clear to auscultation no rales rhonchi or wheezes noted. Abdomen is soft nondistended good active bowel sounds. Musculoskeletal patient is noted have the parkinsonism tremor worse with intention. The patient was examined with nurse in attendance in the prone position the left lateral hemorrhoid surgical site is approximately half the size it was there is no new clots no active bleeding no signs of infection or inflammation is noted. Area was cleansed with normal saline covered triple antibiotic ointment and a maxi pad. Impression: Postop day 1. Incision and drainage of a massive left lateral thrombosed hemorrhoid. Plan: The patient was discussed the surgical findings there is no new clot or blood patient was told that this is postsurgical swelling and it should go away in the next 1-2 weeks. Discussed with patient the need for cleansing daily Sitz baths possible peroxide triple antibiotic ointment or Anusol or preparation H. Tucks pads to wipe with using MiraLax for softening is stools. Discussed bowel habits toilet habits and the etiology of thrombosed hemorrhoids. Patient was discussed that he needs to we can call in a prescription for Americaine or Nupercainal ointment patient refuses. States he has not taken any pain pills. All questions were answered to patient's satisfaction he is reassured that he is having normal postsurgical changes patient return if any further questions or concerns follow back up in 1-2 weeks and the surgical offices or returned to go with the emergency room. All questions were answered to patient's satisfaction. 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) CAD (coronary artery disease) (2008) AL (myocardial infarction) (2008) Surgical History (Updated 05/18/25 @ 08:21 by Katelynn Ruiz RN) Hx of heart artery stent History of bilateral carpal tunnel release History of cardiac catheterization (01/26/09) S/P CABG (coronary artery bypass graft) (01/2009) History of left-sided carotid endarterectomy (08/18/15) History of colonoscopy (02/19/11) Family History Father Heart disease Heart attack Mother Heart attack Sister Hypertension Assessment & Plan Time-Based Coding :: [TOTAL MINUTES] spent with patient and on the chart (including review of chart, obtaining history, exam, reviewing outside data, placing orders, documenting exam and treatment plan, and counseling patient) on [DATE]. [employer] Inspector Document charge(s): Yes
== END 2025-05-18 17:15 | disposition home or self-care (01) ==
PROVIDERS: Student in an Organized Health Care Education/Training Program; Family Provider Family Medicine; PCP Family Medicine; Referring Provider Surgery; Visit Provider Surgery
PROC: (CPT 46040; principal; 2025-05-18 14:15)
DX: K64.5 Perianal venous thrombosis (principal); K64.4 Residual hemorrhoidal skin tags; Z95.1 Presence of aortocoronary bypass graft
CPT/HCPCS: 46083; 36415; 85027; J0330; J0744; J1100; J2405; J2704; J3010

== ENCOUNTER → 2025-08-16 10:50 | Outpatient (CLI) | payer MEDICARE, SELFPAY ==
[2025-08-16 12:04] LABS: Add Manual Diff / Slide Review NO; Hematocrit 55.0 % (41-53); Hemoglobin 18.8 g/dL (13.5-17.5); Lymphocytes Absolute Auto 2100 /uL (1100-4500); Mean Corpuscular HGB Conc 34.2 % (30-36); Mean Corpuscular Hemoglobin 32.4 PG (26-34); Mean Corpuscular Volume 94.8 fL (80-100); Platelet Count 208 X10^3/uL (150-400)
[2025-08-16 12:14] LABS: Alanine Aminotransferase 14 IU/L (<50); Albumin 4.6 g/dL (3.5-5.0); Albumin Globulin Ratio 1.4 (1.0-2.8); Alkaline Phosphatase 55 U/L (38-126); Blood Urea Nitrogen 21 mg/dL (9-20); Calcium 10.0 mg/dL (8.4-10.2); Carbon Dioxide 26 mmol/L (22-32); Chloride 101 mmol/L (98-107); Cholesterol 118 mg/dL (140-199); Estimated Glomerular Filt Rate > 60 mL/min (>60); Globulin 3.2 g/dL (1.7-4.1); Glucose 114 mg/dL (70-99); HDL Cholesterol 46 mg/dL (40-60); HEMOLYSIS 16 (0-50); Potassium 4.9 mmol/L (3.4-5.1); Sodium 136 mmol/L (137-145); Total Protein 7.8 g/dL (6.3-8.2); Triglycerides 128 mg/dL (35-150)
[2025-08-16 12:42] LABS: TSH w/ Reflex to FT4 3.83 uIU/mL (0.47-4.68)
== END ==
PROVIDERS: PCP Family Medicine; Referring Provider Family Medicine; Visit Provider Family Medicine
DX: Z12.5 Encounter for screening for malignant neoplasm of prostate (principal); E29.1 Testicular hypofunction; I10 Essential (primary) hypertension; I65.23 Occlusion and stenosis of bilateral carotid arteries; G20.A1 Parkinson's disease without dyskinesia, without mention of fluctuations; E78.2 Mixed hyperlipidemia; Z95.1 Presence of aortocoronary bypass graft
CPT/HCPCS: 36415; 80053; 80061; 84402; 84403; 84443; 85025; G0103